=== PATIENT | male | born 1975 | race Caucasian/White ===

== ENCOUNTER 2016-09-11 14:38 | Emergency (ER) | payer SELFPAY ==
[~2016-09-11] VITALS: Ht 167.6 cm; Wt 82.0 kg
[~2016-09-11 14:38] MED LIST: DOCU-138 PO; FERR-63 PO; HYDR-3992 PO; PANT40TA4 PO
[2016-09-11] MEDS ORDERED: ONDANSETRON 4MG ODT PO STA (15:18)
[2016-09-11] MEDS ORDERED: PANTOPRAZOLE 40MG DR TABLET PO ONE (15:30)
[2016-09-11 16:21] LABS: BASOPHILS % 0.4 % (0.0-2.0); EOSINOPHILS % 0.3 % (0.0-5.0); HEMATOCRIT. 36.7 % (42.0-52.0); HEMOGLOBIN. 12.7 g/dL (14.0-18.0); LYMPHOCYTES % 32.2 % (20.0-50.0); MEAN CORPUSCULAR HEMOGLOBIN 31.4 pg (28.0-32.0); MEAN CORPUSCULAR VOLUME 90.7 fL (80.0-94.0); MEAN PLATELET VOLUME 8.5 fl (7.4-10.4); MONOCYTES % 9.6 % (2.0-8.0); NEUTROPHILS % 57.5 % (40.0-76.0); RED BLOOD CELL COUNT 4.05 mill/uL (4.7-6.1); RED CELL DISTRIBUTION WIDTH 15.5 % (11.6-14.6)
[2016-09-11 16:27] LABS: PLATELET 39 x1000/uL (130-400)
[2016-09-11 16:33] LABS: CARBON DIOXIDE 23 mEq/L (21-32); CHLORIDE 111 mEq/L (98-107)
[2016-09-11 16:44] LABS: ETHANOL BLOOD 345 mg/dL
[2016-09-11 17:28] LABS: CLARITY URINE CLEAR (CLEAR); COLOR URINE YELLOW (YELLOW); GLUCOSE URINE NEGATIVE (NEGATIVE); KETONES URINE NEGATIVE (NEGATIVE); LEUKOCYTE ESTERASE URINE NEGATIVE (NEGATIVE); NITRITE URINE NEGATIVE (NEGATIVE); OCCULT BLOOD URINE NEGATIVE (NEGATIVE); PROTEIN URINE NEGATIVE (NEGATIVE); SPECIFIC GRAVITY URINE 1.006 (1.005-1.030)
[2016-09-11 17:40] LABS: *AMPHETAMINES SCREEN URINE NEGATIVE (NEGATIVE); *BARBITURATES SCREEN URINE NEGATIVE (NEGATIVE); *BENZODIAZEPINES SCREEN URINE NEGATIVE (NEGATIVE); *COCAINE SCREEN URINE NEGATIVE (NEGATIVE); CANNABINOID URINE SCREEN NEGATIVE (NEGATIVE); METHADONE URINE SCREEN NEGATIVE (NEGATIVE); OPIATES URINE SCREEN NEGATIVE (NEGATIVE); PHENCYCLIDINE URINE SCREEN NEGATIVE (NEGATIVE)
[2016-09-11] MEDS ORDERED: ACETAMINOPHEN WITH CODEINE 300/30MG TABLET PO ONE (18:30)
[2016-09-11] MEDS ORDERED: ONDANSETRON 4MG ODT PO ONE (18:30)
[2016-09-11] MEDS ORDERED: POTASSIUM CHLORIDE 20MEQ TABLET SR PO ONE (18:45)
[2016-09-11 18:46] VITALS: BP 122/74
[2016-09-12 10:25] LABS: PLATELET ESTIMATE DECREASED
== END 2016-09-11 18:51 | disposition home or self-care (01) ==
LOC: ER 15:02
DX: D69.6 Thrombocytopenia, unspecified (principal); F10.229 Alcohol dependence with intoxication, unspecified; Y90.8 Blood alcohol level of 240 mg/100 ml or more; R03.0 Elevated blood-pressure reading, without diagnosis of hypertension; E87.6 Hypokalemia; Z88.8 Allergy status to other drugs, medicaments and biological substances; Z88.6 Allergy status to analgesic agent
CPT/HCPCS: 36415; 80053; 80305; 81003; 85025; 99284; G0482; Q0162

== ENCOUNTER 2016-09-13 18:33 | Emergency (ER) | payer SELFPAY ==
[~2016-09-13] VITALS: Ht 167.6 cm; Wt 65.0 kg
[2016-09-13] MEDS ORDERED: SODIUM CHLORIDE 0.9% 1,000 ML IV ONE (19:33)
[2016-09-13] MEDS ORDERED: ACTIVATED CHARCOAL 50 G/240 ML TUBE PO ONE (19:45)
[2016-09-13 20:05] LABS: BASOPHILS % 0.4 % (0.0-2.0); EOSINOPHILS % 0.4 % (0.0-5.0); HEMATOCRIT. 35.9 % (42.0-52.0); HEMOGLOBIN. 12.6 g/dL (14.0-18.0); LYMPHOCYTES % 32.2 % (20.0-50.0); MEAN CORPUSCULAR HEMOGLOBIN 31.6 pg (28.0-32.0); MEAN CORPUSCULAR VOLUME 89.9 fL (80.0-94.0); MEAN PLATELET VOLUME 8.7 fl (7.4-10.4); MONOCYTES % 7.8 % (2.0-8.0); NEUTROPHILS % 59.2 % (40.0-76.0); RED BLOOD CELL COUNT 3.99 mill/uL (4.7-6.1); RED CELL DISTRIBUTION WIDTH 15.8 % (11.6-14.6)
[2016-09-13 20:08] LABS: CHLORIDE 108 mEq/L (98-107)
[2016-09-13 20:14] LABS: CLARITY URINE CLEAR (CLEAR); COLOR URINE YELLOW (YELLOW); GLUCOSE URINE NEGATIVE (NEGATIVE); KETONES URINE NEGATIVE (NEGATIVE); LEUKOCYTE ESTERASE URINE NEGATIVE (NEGATIVE); NITRITE URINE NEGATIVE (NEGATIVE); OCCULT BLOOD URINE NEGATIVE (NEGATIVE); PH URINE 6.5 (4.5-8.0); PROTEIN URINE NEGATIVE (NEGATIVE); SPECIFIC GRAVITY URINE 1.006 (1.005-1.030)
[2016-09-13 20:16] LABS: PLATELET 35 x1000/uL (130-400)
[2016-09-13 20:17] LABS: CARBON DIOXIDE 25 mEq/L (21-32); ETHANOL BLOOD 254 mg/dL
[2016-09-13 20:25] LABS: *AMPHETAMINES SCREEN URINE NEGATIVE (NEGATIVE); *BARBITURATES SCREEN URINE NEGATIVE (NEGATIVE); *BENZODIAZEPINES SCREEN URINE NEGATIVE (NEGATIVE); *COCAINE SCREEN URINE NEGATIVE (NEGATIVE); CANNABINOID URINE SCREEN NEGATIVE (NEGATIVE); METHADONE URINE SCREEN NEGATIVE (NEGATIVE); OPIATES URINE SCREEN NEGATIVE (NEGATIVE); PHENCYCLIDINE URINE SCREEN NEGATIVE (NEGATIVE)
[2016-09-14] MEDS ORDERED: FOLIC ACID 1 MG, THIAMINE HCL 100 MG, MVI, ADULT NO.1 10 ML in DEXTROSE 5% WATER 1,000 ML IV ONE ×4 (19:45)
[2016-09-14] MEDS ORDERED: ONDANSETRON HCL 4MG/2ML VIAL IV ONE (19:45)
[2016-09-14] MEDS ORDERED: FAMOTIDINE 20MG/2ML VIAL IV ONE (19:45)
[2016-09-14] MEDS ORDERED: MORPHINE SULFATE 4 MG/ML CPJ (NOT FOR IM USE) IV ONE (19:45)
[2016-09-15] MEDS ORDERED: MAGNESIUM/ALUMINUM HYDROXIDE/SIMETHICONE 30ML UDC PO STA (09:19)
[2016-09-15] MEDS ORDERED: VISCOUS LIDOCAINE 2% 15 ML UDC PO STA (09:19)
[2016-09-15] MEDS ORDERED: DICYCLOMINE 10 MG/5 ML ORAL SYR PO STA (09:19)
[2016-09-15 12:02] VITALS: BP 119/68
== END 2016-09-15 12:03 | disposition home or self-care (01) ==
LOC: ER 18:35
DX: T43.212A Poisoning by selective serotonin and norepinephrine reuptake inhibitors, intentional self-harm, initial encounter (principal); T43.222A Poisoning by selective serotonin reuptake inhibitors, intentional self-harm, initial encounter; T47.1X2A Poisoning by other antacids and anti-gastric-secretion drugs, intentional self-harm, initial encounter; R45.851 Suicidal ideations; D69.6 Thrombocytopenia, unspecified; F10.129 Alcohol abuse with intoxication, unspecified; F10.20 Alcohol dependence, uncomplicated; Z88.6 Allergy status to analgesic agent; Z88.8 Allergy status to other drugs, medicaments and biological substances; Z79.899 Other long term (current) drug therapy; Y90.8 Blood alcohol level of 240 mg/100 ml or more; Y92.89 Other specified places as the place of occurrence of the external cause
CPT/HCPCS: 36415; 80053; 80305; 80307; 80329; 81003; 83690; 85025; 93005; 96365; 96366; 96375; 99285; G0482; J2270; J2405; J3411; J3490; J7030; J7070; Z7610

== ENCOUNTER 2016-10-19 14:22 | Emergency (ER) | payer MEDICAID ==
[~2016-10-19] VITALS: Ht 162.6 cm; Wt 73.0 kg
[~2016-10-19 14:22] MED LIST changes: +TRAZ-129 PO
[2016-10-19 17:34] LABS: CLARITY URINE CLEAR (CLEAR); COLOR URINE YELLOW (YELLOW); KETONES URINE NEGATIVE (NEGATIVE); LEUKOCYTE ESTERASE URINE NEGATIVE (NEGATIVE); NITRITE URINE NEGATIVE (NEGATIVE); OCCULT BLOOD URINE NEGATIVE (NEGATIVE); PH URINE 5.5 (4.5-8.0); PROTEIN URINE NEGATIVE (NEGATIVE); SPECIFIC GRAVITY URINE 1.008 (1.005-1.030); UROBILINOGEN URINE 0.2 E.U./dL (0.2-1.0)
[2016-10-19 17:46] LABS: BASOPHILS % 0.7 % (0.0-2.0); EOSINOPHILS % 0.9 % (0.0-5.0); HEMATOCRIT. 32.5 % (42.0-52.0); HEMOGLOBIN. 10.8 g/dL (14.0-18.0); LYMPHOCYTES % 22.9 % (20.0-50.0); MEAN CORPUSCULAR HEMOGLOBIN 29.4 pg (28.0-32.0); MEAN CORPUSCULAR VOLUME 88.3 fL (80.0-94.0); MEAN PLATELET VOLUME 9.1 fl (7.4-10.4); MONOCYTES % 6.4 % (2.0-8.0); NEUTROPHILS % 69.1 % (40.0-76.0); RED BLOOD CELL COUNT 3.68 mill/uL (4.7-6.1); RED CELL DISTRIBUTION WIDTH 18.3 % (11.6-14.6)
[2016-10-19 17:52] LABS: CHLORIDE 109 mEq/L (98-107)
[2016-10-19 17:53] LABS: INR 1.2; PROTHROMBIN TIME 12.6 sec
[2016-10-19 17:58] LABS: CARBON DIOXIDE 25 mEq/L (21-32)
[2016-10-19 17:59] LABS: PLATELET 27 x1000/uL (130-400)
[2016-10-19 18:08] LABS: PLATELET ESTIMATE MARKEDLY DECREASED
[2016-10-19] MEDS ORDERED: ONDANSETRON HCL 4MG/2ML VIAL IV STA (20:23)
[2016-10-19] MEDS ORDERED: MORPHINE SULFATE 4 MG/ML CPJ (NOT FOR IM USE) IV STA (20:23)
[2016-10-19] MEDS ORDERED: VISCOUS LIDOCAINE 2% 15 ML UDC PO STA (20:23)
[2016-10-19] MEDS ORDERED: DICYCLOMINE 10 MG/5 ML ORAL SYR PO STA (20:23)
[2016-10-19] MEDS ORDERED: MAGNESIUM/ALUMINUM HYDROXIDE/SIMETHICONE 30ML UDC PO STA (20:23)
[2016-10-19] MEDS ORDERED: SODIUM CHLORIDE 0.9% 1,000 ML IV ONE (20:23)
[2016-10-19 22:14] VITALS: BP 143/80
[2016-10-31] MEDS ORDERED: COLACE (04:38)
[2016-10-31] MEDS ORDERED: [UNRECOGNIZED DRUG - REMARK] (04:38)
[2016-10-31] MEDS ORDERED: OMEPRAZOLE (04:38)
== END 2016-10-19 22:16 | disposition home or self-care (01) ==
LOC: MERGE 16:21 → ER 16:21
DX: D61.818 Other pancytopenia (principal); K85.90 Acute pancreatitis without necrosis or infection, unspecified
CPT/HCPCS: 36415; 76705; 80053; 81003; 83690; 85025; 85610; 96361; 96374; 96375; 99285; J2270; J2405; J7030

== ENCOUNTER 2016-10-27 14:30 | Emergency (ER) | payer MEDICAID ==
[~2016-10-27] VITALS: Ht 172.7 cm; Wt 70.0 kg
[2016-10-27] MEDS ORDERED: SODIUM CHLORIDE 0.9% 1,000 ML IV ONE ×2 (14:49→15:38)
[2016-10-27 15:19] LABS: BASOPHILS % 0.7 % (0.0-2.0); EOSINOPHILS % 0.3 % (0.0-5.0); HEMATOCRIT. 33.4 % (42.0-52.0); HEMOGLOBIN. 11.3 g/dL (14.0-18.0); LYMPHOCYTES % 27.8 % (20.0-50.0); MEAN CORPUSCULAR HEMOGLOBIN 29.1 pg (28.0-32.0); MEAN PLATELET VOLUME 9.1 fl (7.4-10.4); MONOCYTES % 6.1 % (2.0-8.0); NEUTROPHILS % 65.1 % (40.0-76.0); RED BLOOD CELL COUNT 3.88 mill/uL (4.7-6.1); RED CELL DISTRIBUTION WIDTH 18.4 % (11.6-14.6)
[2016-10-27 15:20] LABS: CHLORIDE 109 mEq/L (98-107)
[2016-10-27 15:31] LABS: CARBON DIOXIDE 24 mEq/L (21-32); CREATINE KINASE 723 IU/L (39-308)
[2016-10-27 15:35] LABS: ETHANOL BLOOD 533 mg/dL
[2016-10-27 15:52] LABS: PLATELET 34 x1000/uL (130-400)
[2016-10-27 16:33] LABS: CLARITY URINE CLEAR (CLEAR); COLOR URINE DARK YELLOW (YELLOW); KETONES URINE NEGATIVE (NEGATIVE); LEUKOCYTE ESTERASE URINE NEGATIVE (NEGATIVE); NITRITE URINE NEGATIVE (NEGATIVE); OCCULT BLOOD URINE NEGATIVE (NEGATIVE); PH URINE 6.5 (4.5-8.0); PROTEIN URINE NEGATIVE (NEGATIVE); SPECIFIC GRAVITY URINE 1.011 (1.005-1.030)
[2016-10-27 16:44] LABS: *AMPHETAMINES SCREEN URINE NEGATIVE (NEGATIVE); *BARBITURATES SCREEN URINE NEGATIVE (NEGATIVE); *BENZODIAZEPINES SCREEN URINE NEGATIVE (NEGATIVE); *COCAINE SCREEN URINE NEGATIVE (NEGATIVE); CANNABINOID URINE SCREEN NEGATIVE (NEGATIVE); METHADONE URINE SCREEN NEGATIVE (NEGATIVE); OPIATES URINE SCREEN NEGATIVE (NEGATIVE); PHENCYCLIDINE URINE SCREEN NEGATIVE (NEGATIVE)
[2016-10-27 18:14] LABS: CREATINE KINASE 582 IU/L (39-308)
[2016-10-27 23:20] VITALS: BP 131/81
[2016-10-31] MEDS ORDERED: OMEPRAZOLE (04:38)
[2016-10-31] MEDS ORDERED: [UNRECOGNIZED DRUG - REMARK] (04:38)
[2016-10-31] MEDS ORDERED: COLACE (04:38)
== END 2016-10-28 00:52 | disposition home or self-care (01) ==
LOC: MERGE 14:50 → ER 14:50
DX: F10.129 Alcohol abuse with intoxication, unspecified (principal); M62.82 Rhabdomyolysis; D69.6 Thrombocytopenia, unspecified; R79.89 Other specified abnormal findings of blood chemistry; F41.9 Anxiety disorder, unspecified; F32.9 Major depressive disorder, single episode, unspecified; R56.9 Unspecified convulsions; R44.0 Auditory hallucinations; F12.10 Cannabis abuse, uncomplicated; Z88.3 Allergy status to other anti-infective agents
CPT/HCPCS: 36415; 71010; 80053; 80305; 81003; 82550; 82962; 83605; 83690; 85025; 93005; 96360; 96361; 99285; G0482; J7030; Z7610

== ENCOUNTER 2016-12-19 13:39 | Emergency (ER) | payer MEDICAID ==
[~2016-12-19] VITALS: Ht 167.6 cm; Wt 64.0 kg
[2016-12-19 13:45] VITALS: BP 104/68
== END 2016-12-19 16:44 | disposition left against medical advice (07) ==
LOC: ER 13:59
DX: R10.9 Unspecified abdominal pain (principal); Z53.21 Procedure and treatment not carried out due to patient leaving prior to being seen by health care provider

== ENCOUNTER 2016-12-20 18:18 | Inpatient (IN) | payer MEDICAID, OTHER ==
[~2016-12-20] VITALS: Ht 162.6 cm; Wt 65.8 kg
[2016-12-21] MEDS ORDERED: ONDANSETRON HCL 4MG/2ML VIAL IV ONE (00:30)
[2016-12-21] MEDS ORDERED: MORPHINE SULFATE 4 MG/ML CPJ (NOT FOR IM USE) IV ONE (00:30)
[2016-12-21] MEDS ORDERED: SODIUM CHLORIDE 0.9% 1,000 ML IV ONE (00:30)
[2016-12-21 00:58] LABS: HEMATOCRIT. 31.9 % (42.0-52.0); HEMOGLOBIN. 10.6 g/dL (14.0-18.0); MEAN CORPUSCULAR HEMOGLOBIN 28.9 pg (28.0-32.0); MEAN CORPUSCULAR VOLUME 86.9 fL (80.0-94.0); MEAN PLATELET VOLUME 8.2 fl (7.4-10.4); RED BLOOD CELL COUNT 3.67 mill/uL (4.7-6.1); RED CELL DISTRIBUTION WIDTH 24.4 % (11.6-14.6)
[2016-12-21 01:04] LABS: PLATELET 15 x1000/uL (130-400)
[2016-12-21 01:06] LABS: CHLORIDE 111 mEq/L (98-107)
[2016-12-21 01:15] LABS: CARBON DIOXIDE 26 mEq/L (21-32)
[2016-12-21 01:34] LABS: ETHANOL BLOOD 320 mg/dL
[2016-12-21 02:37] LABS: CLARITY URINE CLEAR (CLEAR); COLOR URINE DARK YELLOW (YELLOW); GLUCOSE URINE NEGATIVE (NEGATIVE); KETONES URINE NEGATIVE (NEGATIVE); LEUKOCYTE ESTERASE URINE NEGATIVE (NEGATIVE); NITRITE URINE NEGATIVE (NEGATIVE); OCCULT BLOOD URINE NEGATIVE (NEGATIVE); PH URINE 5.5 (4.5-8.0); PROTEIN URINE NEGATIVE (NEGATIVE); SPECIFIC GRAVITY URINE 1.026 (1.005-1.030)
[2016-12-21] MEDS ORDERED: MORPHINE SULFATE 2 MG/ML CPJ (NOT FOR IM USE) IV NR (02:45)
[2016-12-21 05:00] VITALS: BP_SYST 146; BP_DIAS 84; BP_DIAS 85
[2016-12-21] MEDS ORDERED: ZOLPIDEM TARTRATE 5MG TABLET PO PRN (07:00)
[2016-12-21 08:00] VITALS: BP_SYST 115; BP_SYST 126; BP_DIAS 63; BP_DIAS 67
[2016-12-21] MEDS: THIAMINE HCL 100MG TABLET PO SCH (09:13)
[2016-12-21] MEDS: MORPHINE SULFATE 2 MG/ML CPJ (NOT FOR IM USE) IV PRN ×2 (09:15→18:30)
[2016-12-21 10:42] LABS: PLATELET ESTIMATE MARKEDLY DECREASED
[2016-12-21 10:59] LABS: *AMPHETAMINES SCREEN URINE NEGATIVE (NEGATIVE); *BARBITURATES SCREEN URINE NEGATIVE (NEGATIVE); *BENZODIAZEPINES SCREEN URINE NEGATIVE (NEGATIVE); *COCAINE SCREEN URINE NEGATIVE (NEGATIVE); CANNABINOID URINE SCREEN NEGATIVE (NEGATIVE); METHADONE URINE SCREEN NEGATIVE (NEGATIVE); OPIATES URINE SCREEN PRESUMTIVE POSITIVE (NEGATIVE); PHENCYCLIDINE URINE SCREEN NEGATIVE (NEGATIVE)
[2016-12-21 12:00] VITALS: BP 100/55
[2016-12-21] MEDS: ONDANSETRON HCL 4MG/2ML VIAL IV PRN ×2 (14:42→18:30)
[2016-12-21 16:00] VITALS: BP 113/70
[2016-12-21] MEDS ORDERED: POTASSIUM CHLORIDE 20MEQ TABLET SR PO NR (19:30)
[2016-12-21 19:44] LABS: HEMATOCRIT. 33.9 % (42.0-52.0); HEMOGLOBIN. 11.1 g/dL (14.0-18.0); MEAN CORPUSCULAR HEMOGLOBIN 28.4 pg (28.0-32.0); MEAN CORPUSCULAR VOLUME 86.7 fL (80.0-94.0); MEAN PLATELET VOLUME 8.7 fl (7.4-10.4); RED BLOOD CELL COUNT 3.91 mill/uL (4.7-6.1); RED CELL DISTRIBUTION WIDTH 24.2 % (11.6-14.6)
[2016-12-21 19:51] LABS: INR 1.2; PROTHROMBIN TIME 12.4 sec (9.4-11.6)
[2016-12-21 20:00] VITALS: BP 136/73
[2016-12-21 20:02] LABS: CHLORIDE 104 mEq/L (98-107)
[2016-12-21 20:13] LABS: CARBON DIOXIDE 26 mEq/L (21-32); PLATELET 15 x1000/uL (130-400)
[2016-12-21] MEDS: SODIUM CHLORIDE 0.9% 1,000 ML IV SCH (21:21)
[2016-12-21 22:53] LABS: PLATELET ESTIMATE MARKEDLY DECREASED
[2016-12-22] VITALS (12 sets, daily range): BP systolic 106–133; BP diastolic 55–78
[2016-12-22] MEDS: MORPHINE SULFATE 2 MG/ML CPJ (NOT FOR IM USE) IV PRN ×4 (04:32→19:41)
[2016-12-22] MEDS: ONDANSETRON HCL 4MG/2ML VIAL IV PRN ×3 (04:36→19:41)
[2016-12-22] MEDS: THIAMINE HCL 100MG TABLET PO SCH (08:40)
[2016-12-22] MEDS: SODIUM CHLORIDE 0.9% 1,000 ML IV SCH (08:41)
[2016-12-22 10:36] LABS: HEMATOCRIT. 32.6 % (42.0-52.0); HEMOGLOBIN. 10.8 g/dL (14.0-18.0); MEAN CORPUSCULAR HEMOGLOBIN 28.5 pg (28.0-32.0); MEAN CORPUSCULAR VOLUME 86.1 fL (80.0-94.0); MEAN PLATELET VOLUME 10.8 fl (7.4-10.4); RED BLOOD CELL COUNT 3.79 mill/uL (4.7-6.1); RED CELL DISTRIBUTION WIDTH 23.6 % (11.6-14.6)
[2016-12-22 10:46] LABS: CARBON DIOXIDE 25 mEq/L (21-32); CHLORIDE 107 mEq/L (98-107)
[2016-12-22 13:57] LABS: PLATELET ESTIMATE MARKEDLY DECREASED
[2016-12-22 13:58] LABS: PLATELET 19 x1000/uL (130-400)
[2016-12-22 15:33] LABS: HEMATOCRIT. 32.4 % (42.0-52.0); HEMOGLOBIN. 10.7 g/dL (14.0-18.0); MEAN CORPUSCULAR HEMOGLOBIN 28.7 pg (28.0-32.0); MEAN CORPUSCULAR VOLUME 86.5 fL (80.0-94.0); MEAN PLATELET VOLUME 8.7 fl (7.4-10.4); PLATELET 18 x1000/uL (130-400); RED BLOOD CELL COUNT 3.75 mill/uL (4.7-6.1); RED CELL DISTRIBUTION WIDTH 23.5 % (11.6-14.6)
[2016-12-22] MEDS ORDERED: ACETAMINOPHEN 325MG TABLET PO SCH (16:15)
[2016-12-22 16:48] LABS: PLATELET ESTIMATE MARKEDLY DECREASED
[2016-12-22] MEDS ORDERED: CEFTRIAXONE 1 G PREMIX 50 ML IV SCH (22:00)
[2016-12-23] VITALS (8 sets, daily range): BP systolic 101–117; BP diastolic 51–74
[2016-12-23] MEDS: MORPHINE SULFATE 2 MG/ML CPJ (NOT FOR IM USE) IV PRN ×4 (01:34→20:29)
[2016-12-23] MEDS: THIAMINE HCL 100MG TABLET PO SCH (08:23)
[2016-12-23] MEDS: SODIUM CHLORIDE 0.9% 1,000 ML IV SCH ×2 (10:49→21:29)
[2016-12-23] MEDS: ONDANSETRON HCL 4MG/2ML VIAL IV PRN ×2 (10:54→20:28)
[2016-12-23] MEDS ORDERED: CEFTRIAXONE 1 G PREMIX 50 ML IV SCH (22:00)
[2016-12-24 00:13] VITALS: BP 110/61
[2016-12-24 00:14] VITALS: BP 110/61
[2016-12-24 00:55] VITALS: BP 101/55
[2016-12-24] MEDS: MORPHINE SULFATE 2 MG/ML CPJ (NOT FOR IM USE) IV PRN ×2 (03:30→08:43)
[2016-12-24 04:00] VITALS: BP 109/62
[2016-12-24] MEDS: ONDANSETRON HCL 4MG/2ML VIAL IV PRN (05:15)
[2016-12-24 07:43] VITALS: BP 111/63
[2016-12-24 07:49] LABS: BASOPHILS % 0.7 % (0.0-2.0); EOSINOPHILS % 0.6 % (0.0-5.0); HEMATOCRIT. 30.9 % (42.0-52.0); HEMOGLOBIN. 10.2 g/dL (14.0-18.0); LYMPHOCYTES % 16.7 % (20.0-50.0); MEAN CORPUSCULAR HEMOGLOBIN 28.6 pg (28.0-32.0); MEAN CORPUSCULAR VOLUME 86.7 fL (80.0-94.0); MONOCYTES % 6.7 % (2.0-8.0); NEUTROPHILS % 75.3 % (40.0-76.0); RED BLOOD CELL COUNT 3.56 mill/uL (4.7-6.1)
[2016-12-24] MEDS: THIAMINE HCL 100MG TABLET PO SCH (08:05)
[2016-12-24 09:33] LABS: PLATELET 37 x1000/uL (130-400)
[2016-12-24 10:19] VITALS: BP 111/63
== END 2016-12-24 10:50 | disposition home or self-care (01) | DRG 241 ==
LOC: ER 12-21 03:30 → 8WST 12-21 03:37 → ENRESERV 12-21 03:41 → 8WST 12-21 05:05
PROVIDERS: ADMIT Family Medicine; ATTEND Family Medicine
PROC: 30233R1 Transfusion of Nonautologous Platelets into Peripheral Vein, Percutaneous Approach (ICD-10-PCS; principal; 2016-12-22)
DX: K29.70 Gastritis, unspecified, without bleeding (principal); D61.818 Other pancytopenia; E46 Unspecified protein-calorie malnutrition; E87.0 Hyperosmolality and hypernatremia; K70.30 Alcoholic cirrhosis of liver without ascites; E87.6 Hypokalemia; Y90.9 Presence of alcohol in blood, level not specified; F10.229 Alcohol dependence with intoxication, unspecified; E86.0 Dehydration; Z88.9 Allergy status to unspecified drugs, medicaments and biological substances; Z87.891 Personal history of nicotine dependence; Z88.6 Allergy status to analgesic agent; Z88.8 Allergy status to other drugs, medicaments and biological substances; Z79.899 Other long term (current) drug therapy; Z68.24 Body mass index [BMI] 24.0-24.9, adult
CPT/HCPCS: 36415; 80053; 80305; 81003; 83690; 85025; 85049; 85610; 86850; 86900; 86945; 87040; 87086; 96361; 96374; 96375; 99285; G0482; J0696; J2270; J2405; J7030; J7040; J7050; P9034

== ENCOUNTER 2016-12-30 11:11 | Inpatient (IN) | payer MEDICAID, OTHER ==
[~2016-12-30] VITALS: Ht 170.2 cm; Wt 69.9 kg
[2016-12-30] MEDS ORDERED: SODIUM CHLORIDE 0.9% 1,000 ML IV ONE (15:15)
[2016-12-30 15:36] LABS: HEMATOCRIT. 32.3 % (42.0-52.0); HEMOGLOBIN. 11.1 g/dL (14.0-18.0); MEAN CORPUSCULAR VOLUME 87.2 fL (80.0-94.0); MEAN PLATELET VOLUME 9.6 fl (7.4-10.4); RED BLOOD CELL COUNT 3.71 mill/uL (4.7-6.1)
[2016-12-30 15:38] LABS: CHLORIDE 113 mEq/L (98-107)
[2016-12-30 15:41] LABS: INR 1.2; PROTHROMBIN TIME 12.3 sec (9.4-11.6)
[2016-12-30 15:43] LABS: CARBON DIOXIDE 23 mEq/L (21-32); PLATELET 30 x1000/uL (130-400)
[2016-12-30 15:48] LABS: CLARITY URINE CLEAR (CLEAR); COLOR URINE YELLOW (YELLOW); GLUCOSE URINE NEGATIVE (NEGATIVE); KETONES URINE NEGATIVE (NEGATIVE); LEUKOCYTE ESTERASE URINE NEGATIVE (NEGATIVE); NITRITE URINE NEGATIVE (NEGATIVE); OCCULT BLOOD URINE NEGATIVE (NEGATIVE); PH URINE 5.5 (4.5-8.0); PROTEIN URINE NEGATIVE (NEGATIVE); UROBILINOGEN URINE 0.2 E.U./dL (0.2-1.0)
[2016-12-30 15:59] LABS: *AMPHETAMINES SCREEN URINE NEGATIVE (NEGATIVE); *BARBITURATES SCREEN URINE NEGATIVE (NEGATIVE); *BENZODIAZEPINES SCREEN URINE NEGATIVE (NEGATIVE); *COCAINE SCREEN URINE NEGATIVE (NEGATIVE); CANNABINOID URINE SCREEN NEGATIVE (NEGATIVE); METHADONE URINE SCREEN NEGATIVE (NEGATIVE); OPIATES URINE SCREEN NEGATIVE (NEGATIVE); PHENCYCLIDINE URINE SCREEN NEGATIVE (NEGATIVE)
[2016-12-30 16:00] LABS: ETHANOL BLOOD 416 mg/dL
[2016-12-30] MEDS ORDERED: PANTOPRAZOLE SODIUM 40 MG/VIAL IV ONE (17:15)
[2016-12-30 17:22] LABS: ATYPICAL LYMPHOCYTES 3; PLATELET ESTIMATE MARKEDLY DECREASED
[2016-12-30] MEDS ORDERED: HYDROCODONE/ACETAMINOPHEN 5/325MG TABLET PO PRN (20:00)
[2016-12-30 20:46] LABS: HEPATITIS B SURFACE ANTIGEN NEGATIVE
[2016-12-30 21:14] LABS: HEPATITIS B CORE AB IGM NEGATIVE
[2016-12-30 21:16] LABS: HEPATITIS A AB IGM NEGATIVE (NEGATIVE)
[2016-12-30] MEDS: POTASSIUM CHLORIDE 20MEQ TABLET SR PO SCH (22:43)
[2016-12-30] MEDS: ONDANSETRON HCL 4MG/2ML VIAL IV PRN (22:45)
[2016-12-30] MEDS: MORPHINE SULFATE 4 MG/ML CPJ (NOT FOR IM USE) IV PRN (22:45)
[2016-12-31] MEDS: MORPHINE SULFATE 4 MG/ML CPJ (NOT FOR IM USE) IV PRN ×4 (03:45→22:18)
[2016-12-31 08:50] VITALS: BP 111/61
[2016-12-31 09:00] VITALS: BP 111/61
[2016-12-31] MEDS ORDERED: FAMOTIDINE 20MG/2ML VIAL IV SCH (09:00)
[2016-12-31] MEDS ORDERED: FUROSEMIDE 40MG/4ML VIAL IV SCH (09:00)
[2016-12-31] MEDS: POTASSIUM CHLORIDE 20MEQ TABLET SR PO SCH (09:24)
[2016-12-31] MEDS: PANTOPRAZOLE 40MG DR TABLET PO SCH (09:25)
[2016-12-31 12:00] VITALS: BP 127/73
[2016-12-31] MEDS: SODIUM CHLORIDE 0.9% 1,000 ML IV SCH ×3 (12:17→22:18)
[2016-12-31] MEDS: ONDANSETRON HCL 4MG/2ML VIAL IV PRN ×2 (12:22→22:17)
[2016-12-31] MEDS ORDERED: FILGRASTIM-TBO 480 MCG/0.8 ML SYRINGE SQ SCH (13:00)
[2016-12-31 16:00] VITALS: BP 119/66
[2016-12-31 20:00] VITALS: BP 132/77
[2017-01-01] VITALS: BP 130/76
[2017-01-01] MEDS: SODIUM CHLORIDE 0.9% 1,000 ML IV SCH ×7 (02:00→18:27)
[2017-01-01 04:00] VITALS: BP 146/81
[2017-01-01] MEDS: MORPHINE SULFATE 4 MG/ML CPJ (NOT FOR IM USE) IV PRN ×2 (06:44→12:40)
[2017-01-01] MEDS: ONDANSETRON HCL 4MG/2ML VIAL IV PRN (06:44)
[2017-01-01] MEDS: PANTOPRAZOLE 40MG DR TABLET PO SCH (06:49)
[2017-01-01 07:13] LABS: BASOPHILS % 0.3 % (0.0-2.0); EOSINOPHILS % 0.1 % (0.0-5.0); HEMOGLOBIN. 10.3 g/dL (14.0-18.0); LYMPHOCYTES % 8.7 % (20.0-50.0); MEAN CORPUSCULAR HEMOGLOBIN 29.1 pg (28.0-32.0); MEAN CORPUSCULAR VOLUME 87.5 fL (80.0-94.0); MEAN PLATELET VOLUME 10.2 fl (7.4-10.4); MONOCYTES % 8.4 % (2.0-8.0); NEUTROPHILS % 82.5 % (40.0-76.0); RED BLOOD CELL COUNT 3.54 mill/uL (4.7-6.1)
[2017-01-01 07:34] LABS: CARBON DIOXIDE 26 mEq/L (21-32); CHLORIDE 102 mEq/L (98-107); PHOSPHORUS 2.7 mg/dL (2.5-4.9)
[2017-01-01 08:00] VITALS: BP 122/67
[2017-01-01] MEDS: POTASSIUM CHLORIDE 20MEQ TABLET SR PO SCH (09:00)
[2017-01-01 09:08] LABS: PLATELET 19 x1000/uL (130-400)
[2017-01-01 11:29] LABS: PLATELET ESTIMATE MARKEDLY DECREASED
[2017-01-01 12:00] VITALS: BP 124/62
[2017-01-01] MEDS ORDERED: FILGRASTIM-TBO 480 MCG/0.8 ML SYRINGE SQ SCH (12:00)
[2017-01-01] MEDS ORDERED: MAGNESIUM 2 G PREMIX 50 ML IV NR (12:00)
[2017-01-01] MEDS ORDERED: POTASSIUM CHLORIDE INJ 40 MEQ in DEXT 5% WATER 500 ML IV NR (12:00)
[2017-01-01 16:00] VITALS: BP 175/92
[2017-01-01 20:55] VITALS: BP 129/69
== END 2017-01-01 21:35 | disposition home or self-care (01) | DRG 775 ==
LOC: ER 11:26 → 6EST 17:36 → SUPCPDRO 19:55 → ENRESERV 12-31 07:50
PROVIDERS: ADMIT Internal Medicine Nephrology; ATTEND Internal Medicine Nephrology
DX: F10.229 Alcohol dependence with intoxication, unspecified (principal); D61.818 Other pancytopenia; K85.20 Alcohol induced acute pancreatitis without necrosis or infection; K70.30 Alcoholic cirrhosis of liver without ascites; E44.1 Mild protein-calorie malnutrition; K86.0 Alcohol-induced chronic pancreatitis; K70.10 Alcoholic hepatitis without ascites; Y90.8 Blood alcohol level of 240 mg/100 ml or more; E87.6 Hypokalemia; D64.9 Anemia, unspecified; Z88.6 Allergy status to analgesic agent; Z88.8 Allergy status to other drugs, medicaments and biological substances; Z79.899 Other long term (current) drug therapy; Z68.24 Body mass index [BMI] 24.0-24.9, adult
CPT/HCPCS: 36415; 80048; 80053; 80076; 80305; 81003; 82105; 83690; 83735; 84100; 85025; 85610; 86705; 86709; 86803; 87040; 87340; 96361; 96374; 96375; 99285; C9113; G0482; J1442; J1940; J2270; J2405; J3475; J3480; J3490; J7030; J7060

== ENCOUNTER 2017-01-09 12:27 | Emergency (ER) | payer MEDICAID, OTHER ==
[~2017-01-09] VITALS: Ht 162.6 cm; Wt 70.0 kg
[2017-01-09 18:24] LABS: HEMATOCRIT. 34.2 % (42.0-52.0); HEMOGLOBIN. 11.4 g/dL (14.0-18.0); MEAN CORPUSCULAR HEMOGLOBIN 28.6 pg (28.0-32.0); MEAN CORPUSCULAR VOLUME 85.9 fL (80.0-94.0); MEAN PLATELET VOLUME 8.6 fl (7.4-10.4); RED BLOOD CELL COUNT 3.99 mill/uL (4.7-6.1); RED CELL DISTRIBUTION WIDTH 21.9 % (11.6-14.6)
[2017-01-09 18:26] LABS: CHLORIDE 109 mEq/L (98-107); INR 1.2; PROTHROMBIN TIME 12.6 sec (9.4-11.6)
[2017-01-09 18:26] LABS: CLARITY URINE CLEAR (CLEAR); COLOR URINE YELLOW (YELLOW); GLUCOSE URINE NEGATIVE (NEGATIVE); KETONES URINE NEGATIVE (NEGATIVE); LEUKOCYTE ESTERASE URINE NEGATIVE (NEGATIVE); NITRITE URINE NEGATIVE (NEGATIVE); OCCULT BLOOD URINE NEGATIVE (NEGATIVE); PH URINE 5.5 (4.5-8.0); PROTEIN URINE NEGATIVE (NEGATIVE); UROBILINOGEN URINE 0.2 E.U./dL (0.2-1.0)
[2017-01-09 18:31] LABS: CARBON DIOXIDE 23 mEq/L (21-32)
[2017-01-09 18:32] LABS: PLATELET 23 x1000/uL (130-400)
[2017-01-09 20:24] LABS: PLATELET ESTIMATE MARKEDLY DECREASED
[2017-01-10] VITALS: BP 121/62
[2017-01-10] MEDS ORDERED: SODIUM CHLORIDE 0.9% 500 ML IV ONE (00:15)
[2017-01-10] MEDS ORDERED: MORPHINE SULFATE 2 MG/ML CPJ (NOT FOR IM USE) IV ONE (00:15)
== END 2017-01-10 00:15 | disposition home or self-care (01) ==
LOC: ER 14:39 → CANBEDREQ 01-10 02:52
DX: R79.1 Abnormal coagulation profile (principal); E86.0 Dehydration; E83.51 Hypocalcemia; D72.819 Decreased white blood cell count, unspecified; D69.6 Thrombocytopenia, unspecified; K76.6 Portal hypertension; K74.60 Unspecified cirrhosis of liver; R74.0 Nonspecific elevation of levels of transaminase and lactic acid dehydrogenase [LDH]; R16.1 Splenomegaly, not elsewhere classified; F41.9 Anxiety disorder, unspecified; F32.9 Major depressive disorder, single episode, unspecified; F10.20 Alcohol dependence, uncomplicated; Z87.891 Personal history of nicotine dependence; Z88.6 Allergy status to analgesic agent; Z87.11 Personal history of peptic ulcer disease; Z88.8 Allergy status to other drugs, medicaments and biological substances
CPT/HCPCS: 36415; 74176; 80053; 81003; 83690; 85025; 85610; 93005; 99285; J7040

== ENCOUNTER 2017-02-17 18:57 | Emergency (ER) | payer MEDICAID ==
[~2017-02-17] VITALS: Ht 157.5 cm; Wt 68.0 kg
[2017-02-17] MEDS ORDERED: TETANUS, DIPHTHERIA, PERTUSSIS VAC/PF 0.5ML (>7YR OLD) IM ONE (19:15)
[2017-02-17] MEDS ORDERED: BACITRACIN ZINC OINT UDPKT TOP ONE (19:15)
[2017-02-17] MEDS ORDERED: LORAZEPAM 2MG/ML CPJ IV STA (21:15)
[2017-02-17] MEDS ORDERED: SODIUM CHLORIDE 0.9% 1,000 ML IV ONE (21:15)
[2017-02-17] MEDS ORDERED: ONDANSETRON HCL 4MG/2ML VIAL IV STA (21:15)
[2017-02-17] MEDS ORDERED: CYANOCOBALAMIN 1000MCG/ML VIAL IM ONE (21:30)
[2017-02-18] MEDS ORDERED: SODIUM CHLORIDE 0.9% 1,000 ML IV ONE (01:01)
[2017-02-18 06:49] VITALS: BP 102/65
== END 2017-02-18 07:06 | disposition home or self-care (01) ==
LOC: ER 19:24
DX: S01.111A Laceration without foreign body of right eyelid and periocular area, initial encounter (principal); S00.81XA Abrasion of other part of head, initial encounter; S00.31XA Abrasion of nose, initial encounter; F10.229 Alcohol dependence with intoxication, unspecified; K76.9 Liver disease, unspecified; F15.10 Other stimulant abuse, uncomplicated; Y90.9 Presence of alcohol in blood, level not specified; R26.9 Unspecified abnormalities of gait and mobility; Z88.6 Allergy status to analgesic agent; Y04.0XXA Assault by unarmed brawl or fight, initial encounter; Y93.89 Activity, other specified; Y92.488 Other paved roadways as the place of occurrence of the external cause
CPT/HCPCS: 12011; 70450; 70486; 72125; 90471; 90715; 96361; 96372; 96374; 96375; 99284; J2060; J2405; J3420; J7030; X7700; Z7610

== ENCOUNTER 2017-03-10 13:49 | Emergency (ER) | payer MEDICAID ==
[~2017-03-10] VITALS: Ht 162.6 cm; Wt 60.0 kg
[2017-03-10] MEDS ORDERED: MAGNESIUM/ALUMINUM HYDROXIDE/SIMETHICONE 30ML UDC PO STA (14:20)
[2017-03-10] MEDS ORDERED: DICYCLOMINE 10 MG/5 ML ORAL SYR PO STA (14:20)
[2017-03-10] MEDS ORDERED: ONDANSETRON HCL 4MG/2ML VIAL IV STA (14:20)
[2017-03-10] MEDS ORDERED: VISCOUS LIDOCAINE 2% 15 ML UDC PO STA (14:20)
[2017-03-10 15:04] LABS: HEMATOCRIT. 33.9 % (42.0-52.0); HEMOGLOBIN. 11.2 g/dL (14.0-18.0); MEAN CORPUSCULAR HEMOGLOBIN 29.3 pg (28.0-32.0); MEAN CORPUSCULAR VOLUME 88.4 fL (80.0-94.0); MEAN PLATELET VOLUME 8.6 fl (7.4-10.4); RED BLOOD CELL COUNT 3.84 mill/uL (4.7-6.1); RED CELL DISTRIBUTION WIDTH 17.8 % (11.6-14.6)
[2017-03-10 15:06] LABS: CHLORIDE 110 mEq/L (98-107)
[2017-03-10 15:07] LABS: INR 1.1
[2017-03-10 15:08] LABS: PLATELET 19 x1000/uL (130-400)
[2017-03-10 15:12] LABS: CARBON DIOXIDE 24 mEq/L (21-32)
[2017-03-10 15:27] LABS: PLATELET ESTIMATE MARKEDLY DECREASED
[2017-03-10 16:07] VITALS: BP 104/69
== END 2017-03-10 16:17 | disposition home or self-care (01) ==
LOC: ER 13:55
DX: K29.20 Alcoholic gastritis without bleeding (principal); R04.0 Epistaxis; F10.10 Alcohol abuse, uncomplicated; Z88.6 Allergy status to analgesic agent; Z88.8 Allergy status to other drugs, medicaments and biological substances; Z87.11 Personal history of peptic ulcer disease
CPT/HCPCS: 36415; 80053; 83690; 85025; 85610; 96374; 99284; J2405

== ENCOUNTER 2017-06-26 10:12 | Emergency (ER) | payer MEDICAID, OTHER ==
[~2017-06-26] VITALS: Ht 162.6 cm; Wt 69.6 kg
[~2017-06-26 10:12] MED LIST changes: -HYDR-3992 PO; +METO-293 PO; -TRAZ-129 PO
[2017-06-26] MEDS ORDERED: ONDANSETRON HCL 4MG/2ML VIAL IV STA (15:45)
[2017-06-26] MEDS ORDERED: FAMOTIDINE 20MG/2ML VIAL IV STA (15:45)
[2017-06-26] MEDS ORDERED: SODIUM CHLORIDE 0.9% 1,000 ML IV ONE (15:45)
[2017-06-26] MEDS ORDERED: MORPHINE SULFATE 4 MG/ML CPJ (NOT FOR IM USE) IV STA (15:45)
[2017-06-26 16:11] LABS: BASOPHILS % 0.6 % (0.0-2.0); EOSINOPHILS % 0.7 % (0.0-5.0); HEMATOCRIT. 37.8 % (42.0-52.0); HEMOGLOBIN. 12.3 g/dL (14.0-18.0); LYMPHOCYTES % 33.3 % (20.0-50.0); MEAN CORPUSCULAR HEMOGLOBIN 28.6 pg (28.0-32.0); MEAN CORPUSCULAR VOLUME 87.7 fL (80.0-94.0); MEAN PLATELET VOLUME 9.3 fl (7.4-10.4); MONOCYTES % 7.1 % (2.0-8.0); NEUTROPHILS % 58.3 % (40.0-76.0); RED BLOOD CELL COUNT 4.31 mill/uL (4.7-6.1); RED CELL DISTRIBUTION WIDTH 21.4 % (11.6-14.6)
[2017-06-26 16:13] LABS: INR 1.2; PROTHROMBIN TIME 12.3 sec (9.4-11.6)
[2017-06-26 16:15] LABS: CHLORIDE 110 mEq/L (98-107)
[2017-06-26 16:20] LABS: PLATELET 35 x1000/uL (130-400)
[2017-06-26 16:21] LABS: TROPONIN I < 0.02 ng/mL (0.00-0.04)
[2017-06-26 16:25] LABS: ETHANOL BLOOD 302 mg/dL
[2017-06-26 16:55] LABS: CLARITY URINE CLEAR (CLEAR); COLOR URINE YELLOW (YELLOW); KETONES URINE NEGATIVE (NEGATIVE); LEUKOCYTE ESTERASE URINE NEGATIVE (NEGATIVE); NITRITE URINE NEGATIVE (NEGATIVE); OCCULT BLOOD URINE NEGATIVE (NEGATIVE); PH URINE 5.5 (4.5-8.0); PROTEIN URINE NEGATIVE (NEGATIVE); SPECIFIC GRAVITY URINE 1.015 (1.005-1.030)
[2017-06-26 17:07] LABS: *AMPHETAMINES SCREEN URINE NEGATIVE (NEGATIVE); *BARBITURATES SCREEN URINE NEGATIVE (NEGATIVE); *BENZODIAZEPINES SCREEN URINE PRESUMTIVE POSITIVE (NEGATIVE); *COCAINE SCREEN URINE NEGATIVE (NEGATIVE); CANNABINOID URINE SCREEN NEGATIVE (NEGATIVE); METHADONE URINE SCREEN NEGATIVE (NEGATIVE); OPIATES URINE SCREEN NEGATIVE (NEGATIVE); PHENCYCLIDINE URINE SCREEN NEGATIVE (NEGATIVE)
[2017-06-26] MEDS ORDERED: MORPHINE SULFATE 10 MG/ML CPJ IM ONE (19:00)
[2017-06-26] MEDS ORDERED: KETOROLAC 30MG/ML VIAL IV ONE (19:00)
[2017-06-26 22:52] VITALS: BP 128/70
== END 2017-06-26 23:41 | disposition home or self-care (01) ==
LOC: ER 13:36
DX: K29.20 Alcoholic gastritis without bleeding (principal); D69.6 Thrombocytopenia, unspecified; Z88.6 Allergy status to analgesic agent; D64.9 Anemia, unspecified; Z87.11 Personal history of peptic ulcer disease
CPT/HCPCS: 36415; 71045; 74018; 80053; 80305; 81003; 83605; 83690; 83880; 84484; 85025; 85610; 93005; 96372; 96374; 96375; 99285; G0482; J1885; J2270; J2405; J3490; J7030; Z7610

== ENCOUNTER 2017-07-10 19:12 | Emergency (ER) | payer MEDICAID ==
[~2017-07-10] VITALS: Ht 162.6 cm; Wt 70.0 kg
[2017-07-10 20:14] VITALS: BP 110/65
== END 2017-07-11 01:40 | disposition left against medical advice (07) ==
LOC: ER 21:38
DX: R10.9 Unspecified abdominal pain (principal); Z53.21 Procedure and treatment not carried out due to patient leaving prior to being seen by health care provider

== ENCOUNTER 2017-07-12 14:43 | Emergency (ER) | payer MEDICAID ==
[~2017-07-12] VITALS: Ht 167.6 cm; Wt 76.0 kg
[2017-07-12] MEDS ORDERED: MORPHINE SULFATE 4 MG/ML CPJ (NOT FOR IM USE) IV STA (14:56)
[2017-07-12] MEDS ORDERED: ONDANSETRON HCL 4MG/2ML VIAL IV STA (14:56)
[2017-07-12 15:20] LABS: BASOPHILS % 1.7 % (0.0-2.0); EOSINOPHILS % 0.8 % (0.0-5.0); HEMATOCRIT. 37.6 % (42.0-52.0); HEMOGLOBIN. 12.9 g/dL (14.0-18.0); LYMPHOCYTES % 55.1 % (20.0-50.0); MEAN CORPUSCULAR VOLUME 87.5 fL (80.0-94.0); MEAN PLATELET VOLUME 8.6 fl (7.4-10.4); MONOCYTES % 5.2 % (2.0-8.0); NEUTROPHILS % 37.2 % (40.0-76.0); RED BLOOD CELL COUNT 4.29 mill/uL (4.7-6.1); RED CELL DISTRIBUTION WIDTH 20.3 % (11.6-14.6)
[2017-07-12 15:21] LABS: CHLORIDE 114 mEq/L (98-107)
[2017-07-12 15:23] LABS: INR 1.2; PROTHROMBIN TIME 12.6 sec (9.4-11.6)
[2017-07-12 15:28] LABS: PLATELET 45 x1000/uL (130-400)
[2017-07-12 19:21] LABS: CLARITY URINE CLEAR (CLEAR); COLOR URINE YELLOW (YELLOW); KETONES URINE NEGATIVE (NEGATIVE); LEUKOCYTE ESTERASE URINE NEGATIVE (NEGATIVE); NITRITE URINE NEGATIVE (NEGATIVE); OCCULT BLOOD URINE NEGATIVE (NEGATIVE); PROTEIN URINE NEGATIVE (NEGATIVE); SPECIFIC GRAVITY URINE 1.009 (1.005-1.030); UROBILINOGEN URINE 0.2 E.U./dL (0.2-1.0)
[2017-07-12] MEDS ORDERED: IOHEXOL-300 100 ML BOTTLE ONE (21:15)
[2017-07-12 21:16] VITALS: BP 114/71
== END 2017-07-12 21:18 | disposition home or self-care (01) ==
LOC: ER 14:49
DX: F10.129 Alcohol abuse with intoxication, unspecified (principal); R10.84 Generalized abdominal pain; F14.10 Cocaine abuse, uncomplicated; F12.10 Cannabis abuse, uncomplicated; Z88.6 Allergy status to analgesic agent; Y90.8 Blood alcohol level of 240 mg/100 ml or more
CPT/HCPCS: 36415; 74177; 80053; 81003; 83690; 85025; 85610; 96374; 96375; 99285; G0482; J2270; J2405; Q9967; Z7610

== ENCOUNTER 2017-07-14 13:02 | Emergency (ER) | payer MEDICAID ==
[~2017-07-14] VITALS: Ht 162.6 cm; Wt 70.0 kg
[2017-07-14] MEDS ORDERED: ONDANSETRON HCL 4MG/2ML VIAL IV STA (14:00)
[2017-07-14] MEDS ORDERED: FAMOTIDINE 20MG/2ML VIAL IV STA (14:00)
[2017-07-14] MEDS ORDERED: SODIUM CHLORIDE 0.9% 1,000 ML IV ONE (14:00)
[2017-07-14] MEDS ORDERED: MORPHINE SULFATE 4 MG/ML CPJ (NOT FOR IM USE) IV STA (14:00)
[2017-07-14] MEDS ORDERED: MAGNESIUM/ALUMINUM HYDROXIDE/SIMETHICONE 30ML UDC PO STA (14:00)
[2017-07-14 14:33] LABS: BASOPHILS % 0.7 % (0.0-2.0); EOSINOPHILS % 0.1 % (0.0-5.0); HEMATOCRIT. 35.8 % (42.0-52.0); HEMOGLOBIN. 12.3 g/dL (14.0-18.0); LYMPHOCYTES % 28.5 % (20.0-50.0); MEAN CORPUSCULAR HEMOGLOBIN 30.1 pg (28.0-32.0); MEAN CORPUSCULAR VOLUME 87.6 fL (80.0-94.0); MEAN PLATELET VOLUME 8.4 fl (7.4-10.4); MONOCYTES % 5.7 % (2.0-8.0); RED BLOOD CELL COUNT 4.09 mill/uL (4.7-6.1); RED CELL DISTRIBUTION WIDTH 19.4 % (11.6-14.6)
[2017-07-14 14:34] LABS: PLATELET 39 x1000/uL (130-400)
[2017-07-14 14:35] LABS: CHLORIDE 108 mEq/L (98-107)
[2017-07-14 14:41] LABS: ETHANOL BLOOD 287 mg/dL; INR 1.2; PROTHROMBIN TIME 12.7 sec (9.4-11.6)
[2017-07-14 15:11] LABS: CLARITY URINE CLEAR (CLEAR); COLOR URINE DARK YELLOW (YELLOW); KETONES URINE TRACE (NEGATIVE); LEUKOCYTE ESTERASE URINE NEGATIVE (NEGATIVE); NITRITE URINE NEGATIVE (NEGATIVE); OCCULT BLOOD URINE TRACE (NEGATIVE); PH URINE 6.5 (4.5-8.0); PROTEIN URINE NEGATIVE (NEGATIVE); SPECIFIC GRAVITY URINE 1.015 (1.005-1.030)
[2017-07-14 15:25] LABS: *AMPHETAMINES SCREEN URINE NEGATIVE (NEGATIVE); *BARBITURATES SCREEN URINE NEGATIVE (NEGATIVE); *BENZODIAZEPINES SCREEN URINE PRESUMTIVE POSITIVE (NEGATIVE); OPIATES URINE SCREEN NEGATIVE (NEGATIVE)
[2017-07-14 15:26] LABS: *COCAINE SCREEN URINE NEGATIVE (NEGATIVE); CANNABINOID URINE SCREEN NEGATIVE (NEGATIVE); METHADONE URINE SCREEN NEGATIVE (NEGATIVE); PHENCYCLIDINE URINE SCREEN NEGATIVE (NEGATIVE)
[2017-07-14 18:09] VITALS: BP 141/70
== END 2017-07-14 19:19 | disposition home or self-care (01) ==
LOC: ER 13:27
DX: T51.0X1A Toxic effect of ethanol, accidental (unintentional), initial encounter (principal); K29.00 Acute gastritis without bleeding; D69.6 Thrombocytopenia, unspecified; Z88.6 Allergy status to analgesic agent; Z88.8 Allergy status to other drugs, medicaments and biological substances; Z87.11 Personal history of peptic ulcer disease; Y92.018 Other place in single-family (private) house as the place of occurrence of the external cause
CPT/HCPCS: 36415; 80053; 80305; 81003; 83690; 85025; 85610; 93005; 96361; 96374; 96375; 99285; G0482; J2270; J2405; J3490; J7030

== ENCOUNTER 2017-07-23 12:32 | Emergency (ER) | payer MEDICAID ==
[~2017-07-23] VITALS: Ht 170.2 cm; Wt 70.0 kg
[2017-07-23] MEDS ORDERED: ONDANSETRON 4MG ODT PO STA (14:23)
[2017-07-23 14:42] LABS: CHLORIDE 112 mEq/L (98-107)
[2017-07-23 14:47] LABS: INR 1.2; PROTHROMBIN TIME 12.3 sec (9.4-11.6)
[2017-07-23 14:57] LABS: ETHANOL BLOOD 425 mg/dL
[2017-07-23 14:58] LABS: HEMATOCRIT. 34.2 % (42.0-52.0); HEMOGLOBIN. 11.8 g/dL (14.0-18.0); MEAN CORPUSCULAR HEMOGLOBIN 30.6 pg (28.0-32.0); MEAN CORPUSCULAR VOLUME 88.7 fL (80.0-94.0); MEAN PLATELET VOLUME 8.9 fl (7.4-10.4); RED BLOOD CELL COUNT 3.86 mill/uL (4.7-6.1); RED CELL DISTRIBUTION WIDTH 20.2 % (11.6-14.6)
[2017-07-23 15:02] LABS: PLATELET 30 x1000/uL (130-400)
[2017-07-23 16:01] LABS: ATYPICAL LYMPHOCYTES 2
[2017-07-23 16:02] LABS: PLATELET ESTIMATE MARKEDLY DECREASED
[2017-07-23 17:28] VITALS: BP 103/66
== END 2017-07-23 18:08 | disposition home or self-care (01) ==
LOC: ER 15:29
DX: T51.0X1A Toxic effect of ethanol, accidental (unintentional), initial encounter (principal); F10.129 Alcohol abuse with intoxication, unspecified; D69.6 Thrombocytopenia, unspecified; D72.819 Decreased white blood cell count, unspecified; Z88.6 Allergy status to analgesic agent; Z88.8 Allergy status to other drugs, medicaments and biological substances
CPT/HCPCS: 36415; 80053; 85025; 85610; 99284; G0482; Q0162

== ENCOUNTER 2017-07-27 20:19 | Emergency (ER) | payer MEDICAID ==
[~2017-07-27] VITALS: Ht 167.6 cm; Wt 70.0 kg
[2017-07-28] MEDS ORDERED: ONDANSETRON 4MG ODT PO STA (02:27)
[2017-07-28 02:41] LABS: BASOPHILS % 1.3 % (0.0-2.0); EOSINOPHILS % 0.7 % (0.0-5.0); HEMATOCRIT. 38.6 % (42.0-52.0); HEMOGLOBIN. 12.9 g/dL (14.0-18.0); LYMPHOCYTES % 46.7 % (20.0-50.0); MEAN CORPUSCULAR HEMOGLOBIN 29.6 pg (28.0-32.0); MEAN CORPUSCULAR VOLUME 88.2 fL (80.0-94.0); MEAN PLATELET VOLUME 8.4 fl (7.4-10.4); NEUTROPHILS % 41.3 % (40.0-76.0); RED BLOOD CELL COUNT 4.37 mill/uL (4.7-6.1); RED CELL DISTRIBUTION WIDTH 19.1 % (11.6-14.6)
[2017-07-28 02:44] LABS: PLATELET 40 x1000/uL (130-400)
[2017-07-28 02:48] LABS: CHLORIDE 107 mEq/L (98-107); INR 1.2; PROTHROMBIN TIME 12.4 sec (9.4-11.6)
[2017-07-28 03:11] LABS: ETHANOL BLOOD 320 mg/dL
[2017-07-28 03:14] LABS: CLARITY URINE CLEAR (CLEAR); COLOR URINE DARK YELLOW (YELLOW); KETONES URINE TRACE (NEGATIVE); LEUKOCYTE ESTERASE URINE NEGATIVE (NEGATIVE); NITRITE URINE NEGATIVE (NEGATIVE); OCCULT BLOOD URINE NEGATIVE (NEGATIVE); PH URINE 5.5 (4.5-8.0); PROTEIN URINE NEGATIVE (NEGATIVE); SPECIFIC GRAVITY URINE 1.021 (1.005-1.030)
[2017-07-28] MEDS ORDERED: FAMOTIDINE 20MG TABLET PO ONE (03:30)
[2017-07-28 06:15] VITALS: BP 103/71
== END 2017-07-28 06:30 | disposition home or self-care (01) ==
LOC: ER 20:45
DX: F10.10 Alcohol abuse, uncomplicated (principal); K29.20 Alcoholic gastritis without bleeding; D61.818 Other pancytopenia; I83.90 Asymptomatic varicose veins of unspecified lower extremity; K74.60 Unspecified cirrhosis of liver; Z88.6 Allergy status to analgesic agent
CPT/HCPCS: 36415; 71045; 74176; 80053; 81003; 83690; 85025; 85610; 93005; 99285; G0482; Q0162; Z7610

== ENCOUNTER 2017-07-31 19:23 | Emergency (ER) | payer MEDICAID ==
[~2017-07-31] VITALS: Ht 162.6 cm; Wt 70.0 kg
[2017-08-01] MEDS ORDERED: ONDANSETRON HCL 4MG/2ML VIAL IV STA (04:01)
[2017-08-01] MEDS ORDERED: KETOROLAC 30MG/ML VIAL IV STA (04:01)
[2017-08-01] MEDS ORDERED: SODIUM CHLORIDE 0.9% 1,000 ML IV ONE (04:01)
[2017-08-01 04:17] LABS: HEMATOCRIT. 34.5 % (42.0-52.0); HEMOGLOBIN. 11.8 g/dL (14.0-18.0); MEAN CORPUSCULAR HEMOGLOBIN 30.3 pg (28.0-32.0); MEAN CORPUSCULAR VOLUME 88.8 fL (80.0-94.0); MEAN PLATELET VOLUME 8.6 fl (7.4-10.4); RED BLOOD CELL COUNT 3.88 mill/uL (4.7-6.1); RED CELL DISTRIBUTION WIDTH 18.6 % (11.6-14.6)
[2017-08-01 04:24] LABS: CHLORIDE 105 mEq/L (98-107); PLATELET 20 x1000/uL (130-400)
[2017-08-01 04:25] LABS: INR 1.3; PROTHROMBIN TIME 13.1 sec (9.4-11.6)
[2017-08-01 04:28] LABS: ETHANOL BLOOD 115 mg/dL
[2017-08-01 05:04] LABS: CLARITY URINE CLEAR (CLEAR); COLOR URINE ORANGE (YELLOW); KETONES URINE 1+ (NEGATIVE); LEUKOCYTE ESTERASE URINE 1+ (NEGATIVE); NITRITE URINE POSITIVE (NEGATIVE); OCCULT BLOOD URINE NEGATIVE (NEGATIVE); PROTEIN URINE 1+ (NEGATIVE); SPECIFIC GRAVITY URINE 1.031 (1.005-1.030)
[2017-08-01 05:14] LABS: *AMPHETAMINES SCREEN URINE NEGATIVE (NEGATIVE); *BARBITURATES SCREEN URINE NEGATIVE (NEGATIVE)
[2017-08-01 05:15] LABS: *BENZODIAZEPINES SCREEN URINE PRESUMTIVE POSITIVE (NEGATIVE); *COCAINE SCREEN URINE NEGATIVE (NEGATIVE); CANNABINOID URINE SCREEN NEGATIVE (NEGATIVE); METHADONE URINE SCREEN NEGATIVE (NEGATIVE); OPIATES URINE SCREEN PRESUMTIVE POSITIVE (NEGATIVE); PHENCYCLIDINE URINE SCREEN NEGATIVE (NEGATIVE)
[2017-08-01] MEDS ORDERED: VISCOUS LIDOCAINE 2% 15 ML UDC PO ONE (06:30)
[2017-08-01] MEDS ORDERED: FAMOTIDINE 20MG TABLET PO ONE (06:30)
[2017-08-01] MEDS ORDERED: MAGNESIUM/ALUMINUM HYDROXIDE/SIMETHICONE 30ML UDC PO ONE (06:30)
[2017-08-01 07:17] LABS: PLATELET ESTIMATE MARKEDLY DECREASED
[2017-08-01 07:23] VITALS: BP 119/70
== END 2017-08-01 07:25 | disposition home or self-care (01) ==
LOC: ER 20:17
DX: N39.0 Urinary tract infection, site not specified (principal); F10.229 Alcohol dependence with intoxication, unspecified; F19.10 Other psychoactive substance abuse, uncomplicated; Z88.6 Allergy status to analgesic agent; Z88.8 Allergy status to other drugs, medicaments and biological substances
CPT/HCPCS: 36415; 80053; 80305; 81003; 83690; 85025; 85610; 96361; 96374; 96375; 99285; G0482; J1885; J2405; J7030; Z7610

== ENCOUNTER 2017-08-07 19:53 | Emergency (ER) | payer MEDICAID ==
[~2017-08-07] VITALS: Ht 162.6 cm; Wt 70.0 kg
[2017-08-07 21:41] LABS: HEMATOCRIT. 35.3 % (42.0-52.0); HEMOGLOBIN. 11.9 g/dL (14.0-18.0); MEAN CORPUSCULAR HEMOGLOBIN 30.3 pg (28.0-32.0); MEAN CORPUSCULAR VOLUME 90.1 fL (80.0-94.0); MEAN PLATELET VOLUME 8.3 fl (7.4-10.4); RED BLOOD CELL COUNT 3.92 mill/uL (4.7-6.1); RED CELL DISTRIBUTION WIDTH 20.3 % (11.6-14.6)
[2017-08-07 21:47] LABS: CHLORIDE 105 mEq/L (98-107)
[2017-08-07 21:48] LABS: INR 1.2; PLATELET 18 x1000/uL (130-400); PROTHROMBIN TIME 12.5 sec (9.4-11.6)
[2017-08-07 21:51] LABS: ETHANOL BLOOD 212 mg/dL
[2017-08-07 23:00] LABS: PLATELET ESTIMATE MARKEDLY DECREASED
[2017-08-07 23:10] LABS: CLARITY URINE CLEAR (CLEAR); COLOR URINE DARK YELLOW (YELLOW); KETONES URINE TRACE (NEGATIVE); LEUKOCYTE ESTERASE URINE TRACE (NEGATIVE); NITRITE URINE NEGATIVE (NEGATIVE); OCCULT BLOOD URINE NEGATIVE (NEGATIVE); PH URINE 6.5 (4.5-8.0); PROTEIN URINE TRACE (NEGATIVE); SPECIFIC GRAVITY URINE 1.023 (1.005-1.030)
[2017-08-07 23:22] LABS: *AMPHETAMINES SCREEN URINE NEGATIVE (NEGATIVE); *BARBITURATES SCREEN URINE NEGATIVE (NEGATIVE); *BENZODIAZEPINES SCREEN URINE NEGATIVE (NEGATIVE); *COCAINE SCREEN URINE NEGATIVE (NEGATIVE)
[2017-08-07 23:23] LABS: METHADONE URINE SCREEN NEGATIVE (NEGATIVE); OPIATES URINE SCREEN PRESUMTIVE POSITIVE (NEGATIVE)
[2017-08-07 23:24] LABS: CANNABINOID URINE SCREEN NEGATIVE (NEGATIVE); PHENCYCLIDINE URINE SCREEN NEGATIVE (NEGATIVE)
[2017-08-08] MEDS ORDERED: SODIUM CHLORIDE 0.9% 1,000 ML IV ONE (04:15)
[2017-08-08] MEDS ORDERED: LORAZEPAM 2MG/ML CPJ IV ONE (05:00)
[2017-08-08] MEDS ORDERED: FAMOTIDINE 20MG/2ML VIAL IV SCH (05:15)
[2017-08-08] MEDS ORDERED: ONDANSETRON HCL 4MG/2ML VIAL IV SCH (05:15)
[2017-08-08 12:10] VITALS: BP 135/71
== END 2017-08-08 12:11 | disposition home or self-care (01) ==
LOC: ER 19:53
DX: K76.9 Liver disease, unspecified (principal); F10.239 Alcohol dependence with withdrawal, unspecified; K29.20 Alcoholic gastritis without bleeding; Z88.6 Allergy status to analgesic agent; Z79.899 Other long term (current) drug therapy
CPT/HCPCS: 36415; 80053; 80305; 81003; 83690; 85025; 85610; 96361; 96374; 96375; 99285; G0482; J2060; J2405; J3490; J7030; Z7610

== ENCOUNTER 2017-08-26 17:33 | Emergency (ER) | payer MEDICAID ==
[~2017-08-26] VITALS: Ht 162.6 cm; Wt 70.0 kg
[2017-08-27] MEDS ORDERED: FAMOTIDINE 20MG/2ML VIAL IV STA (01:00)
[2017-08-27] MEDS ORDERED: MAGNESIUM/ALUMINUM HYDROXIDE/SIMETHICONE 30ML UDC PO STA (01:00)
[2017-08-27] MEDS ORDERED: SODIUM CHLORIDE 0.9% 1,000 ML IV ONE (01:00)
[2017-08-27 01:20] LABS: BASOPHILS % 0.9 % (0.0-2.0); EOSINOPHILS % 0.3 % (0.0-5.0); HEMATOCRIT. 35.8 % (42.0-52.0); LYMPHOCYTES % 41.5 % (20.0-50.0); MEAN CORPUSCULAR HEMOGLOBIN 30.6 pg (28.0-32.0); MEAN CORPUSCULAR VOLUME 90.8 fL (80.0-94.0); MONOCYTES % 9.4 % (2.0-8.0); NEUTROPHILS % 47.9 % (40.0-76.0); RED BLOOD CELL COUNT 3.94 mill/uL (4.7-6.1); RED CELL DISTRIBUTION WIDTH 19.9 % (11.6-14.6)
[2017-08-27 01:23] LABS: PLATELET 18 x1000/uL (130-400)
[2017-08-27 01:26] LABS: CHLORIDE 109 mEq/L (98-107)
[2017-08-27 01:32] LABS: INR 1.3; PROTHROMBIN TIME 13.1 sec (9.4-11.6)
[2017-08-27 01:51] LABS: CLARITY URINE CLEAR (CLEAR); COLOR URINE DARK YELLOW (YELLOW); KETONES URINE TRACE (NEGATIVE); LEUKOCYTE ESTERASE URINE NEGATIVE (NEGATIVE); NITRITE URINE NEGATIVE (NEGATIVE); OCCULT BLOOD URINE TRACE (NEGATIVE); PROTEIN URINE 1+ (NEGATIVE); SPECIFIC GRAVITY URINE 1.018 (1.005-1.030)
[2017-08-27 02:11] LABS: *BARBITURATES SCREEN URINE NEGATIVE (NEGATIVE); *BENZODIAZEPINES SCREEN URINE NEGATIVE (NEGATIVE); *COCAINE SCREEN URINE NEGATIVE (NEGATIVE)
[2017-08-27 02:12] LABS: *AMPHETAMINES SCREEN URINE NEGATIVE (NEGATIVE); CANNABINOID URINE SCREEN NEGATIVE (NEGATIVE); METHADONE URINE SCREEN NEGATIVE (NEGATIVE); OPIATES URINE SCREEN NEGATIVE (NEGATIVE); PHENCYCLIDINE URINE SCREEN NEGATIVE (NEGATIVE)
[2017-08-27 02:16] LABS: ETHANOL BLOOD 386 mg/dL
[2017-08-27 10:35] VITALS: BP 123/64
== END 2017-08-27 10:37 | disposition home or self-care (01) ==
LOC: ER 17:40
DX: K70.30 Alcoholic cirrhosis of liver without ascites (principal); R10.12 Left upper quadrant pain; F10.20 Alcohol dependence, uncomplicated; K21.9 Gastro-esophageal reflux disease without esophagitis; D72.819 Decreased white blood cell count, unspecified; D69.6 Thrombocytopenia, unspecified; Y90.8 Blood alcohol level of 240 mg/100 ml or more; Z88.6 Allergy status to analgesic agent
CPT/HCPCS: 36415; 73562; 80053; 80305; 80307; 80329; 81003; 83690; 84443; 85025; 85610; 96374; 99285; G0482; J3490; J7030; Z7610

== ENCOUNTER 2017-09-18 20:59 | Emergency (ER) | payer MEDICAID ==
[~2017-09-18] VITALS: Ht 162.6 cm; Wt 70.0 kg
[2017-09-19] MEDS ORDERED: ONDANSETRON HCL 4MG/2ML VIAL IV STA (03:31)
[2017-09-19 03:48] LABS: HEMATOCRIT. 34.9 % (42.0-52.0); HEMOGLOBIN. 11.8 g/dL (14.0-18.0); MEAN CORPUSCULAR HEMOGLOBIN 30.5 pg (28.0-32.0); MEAN CORPUSCULAR VOLUME 90.1 fL (80.0-94.0); MEAN PLATELET VOLUME 8.3 fl (7.4-10.4); RED BLOOD CELL COUNT 3.87 mill/uL (4.7-6.1); RED CELL DISTRIBUTION WIDTH 18.7 % (11.6-14.6)
[2017-09-19 03:50] LABS: CHLORIDE 113 mEq/L (98-107)
[2017-09-19 03:52] LABS: INR 1.2; PROTHROMBIN TIME 12.8 sec (9.4-11.6)
[2017-09-19 04:00] LABS: PLATELET 22 x1000/uL (130-400)
[2017-09-19 04:10] LABS: CLARITY URINE CLEAR (CLEAR); COLOR URINE YELLOW (YELLOW); KETONES URINE NEGATIVE (NEGATIVE); LEUKOCYTE ESTERASE URINE NEGATIVE (NEGATIVE); NITRITE URINE NEGATIVE (NEGATIVE); OCCULT BLOOD URINE NEGATIVE (NEGATIVE); PROTEIN URINE NEGATIVE (NEGATIVE)
[2017-09-19 04:18] LABS: ETHANOL BLOOD 294 mg/dL
[2017-09-19 04:41] LABS: PLATELET ESTIMATE MARKEDLY DECREASED
[2017-09-19] MEDS ORDERED: ONDANSETRON HCL 4MG/2ML VIAL IV ONE (05:15)
[2017-09-19] MEDS ORDERED: MORPHINE SULFATE 4 MG/ML CPJ (NOT FOR IM USE) IV ONE (05:15)
[2017-09-19 08:36] VITALS: BP 116/68
== END 2017-09-19 08:40 | disposition home or self-care (01) ==
LOC: ER 21:03
DX: D61.818 Other pancytopenia (principal); K85.90 Acute pancreatitis without necrosis or infection, unspecified; K70.10 Alcoholic hepatitis without ascites; F10.229 Alcohol dependence with intoxication, unspecified; K21.9 Gastro-esophageal reflux disease without esophagitis; Z88.6 Allergy status to analgesic agent; Y90.8 Blood alcohol level of 240 mg/100 ml or more
CPT/HCPCS: 36415; 80053; 81003; 83690; 85025; 85610; 96374; 96375; 96376; 99284; G0482; J2270; J2405

== ENCOUNTER 2017-09-30 17:27 | Emergency (ER) | payer SELFPAY ==
[~2017-09-30] VITALS: Ht 165.1 cm; Wt 65.0 kg
[2017-09-30] MEDS ORDERED: SODIUM CHLORIDE 0.9% 1,000 ML IV ONE (18:10)
[2017-09-30] MEDS ORDERED: ONDANSETRON HCL 4MG/2ML VIAL IV STA (18:10)
[2017-09-30] MEDS ORDERED: FAMOTIDINE 20MG/2ML VIAL IV STA (18:10)
[2017-09-30] MEDS ORDERED: MIDAZOLAM HCL 2 MG/2 ML VIAL IV ONE (18:15)
[2017-09-30 18:36] LABS: BASOPHILS % 0.9 % (0.0-2.0); EOSINOPHILS % 0.6 % (0.0-5.0); HEMATOCRIT. 33.5 % (42.0-52.0); HEMOGLOBIN. 11.3 g/dL (14.0-18.0); LYMPHOCYTES % 30.2 % (20.0-50.0); MEAN CORPUSCULAR VOLUME 91.9 fL (80.0-94.0); MEAN PLATELET VOLUME 8.5 fl (7.4-10.4); MONOCYTES % 9.4 % (2.0-8.0); NEUTROPHILS % 58.9 % (40.0-76.0); RED BLOOD CELL COUNT 3.65 mill/uL (4.7-6.1); RED CELL DISTRIBUTION WIDTH 18.8 % (11.6-14.6)
[2017-09-30 18:43] LABS: CHLORIDE 108 mEq/L (98-107)
[2017-09-30 18:44] LABS: PLATELET 26 x1000/uL (130-400)
[2017-09-30 18:45] LABS: INR 1.2; PROTHROMBIN TIME 12.9 sec (9.4-11.6)
[2017-09-30 19:08] LABS: ETHANOL BLOOD 387 mg/dL
[2017-09-30 19:17] LABS: PLATELET ESTIMATE MARKEDLY DECREASED
[2017-09-30 20:26] LABS: CLARITY URINE CLEAR (CLEAR); COLOR URINE YELLOW (YELLOW); KETONES URINE NEGATIVE (NEGATIVE); LEUKOCYTE ESTERASE URINE NEGATIVE (NEGATIVE); NITRITE URINE NEGATIVE (NEGATIVE); OCCULT BLOOD URINE NEGATIVE (NEGATIVE); PH URINE 6.5 (4.5-8.0); PROTEIN URINE NEGATIVE (NEGATIVE); SPECIFIC GRAVITY URINE 1.006 (1.005-1.030); UROBILINOGEN URINE 0.2 E.U./dL (0.2-1.0)
[2017-09-30 20:38] LABS: *AMPHETAMINES SCREEN URINE NEGATIVE (NEGATIVE); *BARBITURATES SCREEN URINE NEGATIVE (NEGATIVE); *BENZODIAZEPINES SCREEN URINE NEGATIVE (NEGATIVE)
[2017-09-30 20:39] LABS: *COCAINE SCREEN URINE NEGATIVE (NEGATIVE); CANNABINOID URINE SCREEN NEGATIVE (NEGATIVE); OPIATES URINE SCREEN NEGATIVE (NEGATIVE); PHENCYCLIDINE URINE SCREEN NEGATIVE (NEGATIVE)
[2017-09-30 20:43] LABS: METHADONE URINE SCREEN NEGATIVE (NEGATIVE)
[2017-10-01 01:00] VITALS: BP 129/78
== END 2017-10-01 01:15 | disposition home or self-care (01) ==
LOC: ER 17:27
DX: T51.0X1A Toxic effect of ethanol, accidental (unintentional), initial encounter (principal); R10.13 Epigastric pain; F10.129 Alcohol abuse with intoxication, unspecified; D61.818 Other pancytopenia; D69.6 Thrombocytopenia, unspecified; R03.0 Elevated blood-pressure reading, without diagnosis of hypertension; F15.10 Other stimulant abuse, uncomplicated; Z88.6 Allergy status to analgesic agent; Z91.09 Other allergy status, other than to drugs and biological substances; Z79.899 Other long term (current) drug therapy; Y92.89 Other specified places as the place of occurrence of the external cause; Y90.8 Blood alcohol level of 240 mg/100 ml or more
CPT/HCPCS: 36415; 76705; 80053; 80305; 81003; 83690; 85025; 85610; 85730; 96361; 96374; 96375; 99285; G0482; J2250; J2405; J3490; J7030; Z7610

== ENCOUNTER 2017-10-18 07:23 | Inpatient (IN) | payer SELFPAY ==
[~2017-10-18] VITALS: Ht 162.6 cm; Wt 68.3 kg
[2017-10-18] MEDS ORDERED: ONDANSETRON HCL 4MG/2ML VIAL IV STA (07:56)
[2017-10-18] MEDS ORDERED: PANTOPRAZOLE 80 MG in SODIUM CHLORIDE 0.9% 100 ML IV STA (07:56)
[2017-10-18] MEDS ORDERED: SODIUM CHLORIDE 0.9% 1,000 ML IV ONE (07:56)
[2017-10-18] MEDS ORDERED: PANTOPRAZOLE SODIUM 40 MG/VIAL IV STA (07:56)
[2017-10-18] MEDS ORDERED: MORPHINE SULFATE 4 MG/ML CPJ (NOT FOR IM USE) IV STA (07:56)
[2017-10-18 08:17] LABS: HEMATOCRIT. 35.8 % (42.0-52.0); MEAN CORPUSCULAR HEMOGLOBIN 30.7 pg (28.0-32.0); MEAN CORPUSCULAR VOLUME 91.8 fL (80.0-94.0); RED CELL DISTRIBUTION WIDTH 17.6 % (11.6-14.6)
[2017-10-18 08:22] LABS: CHLORIDE 108 mEq/L (98-107)
[2017-10-18 08:27] LABS: INR 1.3; PARTIAL THROMBOPLASTIN TIME 31.4 sec (23.4-31.0); PLATELET 19 x1000/uL (130-400); PROTHROMBIN TIME 13.1 sec (9.4-11.6)
[2017-10-18 08:42] LABS: CLARITY URINE CLEAR (CLEAR); COLOR URINE YELLOW (YELLOW); KETONES URINE NEGATIVE (NEGATIVE); LEUKOCYTE ESTERASE URINE NEGATIVE (NEGATIVE); NITRITE URINE NEGATIVE (NEGATIVE); OCCULT BLOOD URINE NEGATIVE (NEGATIVE); PROTEIN URINE NEGATIVE (NEGATIVE)
[2017-10-18] MEDS ORDERED: PANTOPRAZOLE 80 MG in SODIUM CHLORIDE 0.9% 100 ML IV SCH ×2 (08:45→21:00)
[2017-10-18 08:55] LABS: ATYPICAL LYMPHOCYTES 1; PLATELET ESTIMATE MARKEDLY DECREASED
[2017-10-18 11:10] VITALS: BP 139/72
[2017-10-18] MEDS ORDERED: DIPHENHYDRAMINE 50MG/ML VIAL IV PRN (11:45)
[2017-10-18] MEDS ORDERED: CLONIDINE 0.1MG TABLET PO PRN (11:45)
[2017-10-18] MEDS ORDERED: ACETAMINOPHEN 650MG SUPP PR PRN (11:45)
[2017-10-18 12:00] VITALS: BP 139/72
[2017-10-18] MEDS ORDERED: KETOROLAC 15MG/ML VIAL IV PRN (12:00)
[2017-10-18] MEDS ORDERED: MVI, ADULT NO.1 10 ML, FOLIC ACID 1 MG, THIAMINE HCL 100 MG in SODIUM CHLORIDE 0.9% 1,0... IV SCH ×4 (13:00)
[2017-10-18] MEDS ORDERED: KCL 20MEQ/100ML PREMIX 100 ML IV SCH (13:00)
[2017-10-18] MEDS: ONDANSETRON HCL 4MG/2ML VIAL IV PRN ×2 (14:08→23:29)
[2017-10-18] MEDS: SODIUM CHLORIDE 0.9% 1,000 ML IV SCH (14:08)
[2017-10-18 16:00] VITALS: BP 112/66
[2017-10-18 20:00] VITALS: BP 134/75
[2017-10-18] MEDS ORDERED: OCTREOTIDE ACETATE 50 MCG/ML 1ML IV NR (21:00)
[2017-10-18] MEDS ORDERED: PANTOPRAZOLE IV SCH (21:00)
[2017-10-18] MEDS ORDERED: SODIUM CHLORIDE 0.9% IV SCH (21:00)
[2017-10-18] MEDS: OCTREOTIDE 1,000 MCG in SODIUM CHLORIDE 0.9% 98 ML IV SCH (23:03)
[2017-10-18] MEDS: PANTOPRAZOLE 80 MG in SODIUM CHLORIDE 0.9% 100 ML IV SCH (23:03)
[2017-10-19] VITALS: BP 131/74
[2017-10-19 04:00] VITALS: BP 127/63
[2017-10-19 06:16] LABS: CHLORIDE 103 mEq/L (98-107)
[2017-10-19 06:18] LABS: HEMATOCRIT. 34.2 % (42.0-52.0); HEMOGLOBIN. 11.4 g/dL (14.0-18.0); MEAN CORPUSCULAR HEMOGLOBIN 30.9 pg (28.0-32.0); MEAN CORPUSCULAR VOLUME 92.6 fL (80.0-94.0); MEAN PLATELET VOLUME 8.7 fl (7.4-10.4); RED CELL DISTRIBUTION WIDTH 17.2 % (11.6-14.6)
[2017-10-19 06:28] LABS: PHOSPHORUS 3.4 mg/dL (2.5-4.9)
[2017-10-19 06:31] LABS: PLATELET 16 x1000/uL (130-400)
[2017-10-19 06:35] LABS: INR 1.3; PARTIAL THROMBOPLASTIN TIME 32.9 sec (23.4-31.0); PROTHROMBIN TIME 13.4 sec (9.4-11.6)
[2017-10-19 08:00] VITALS: BP 122/65
[2017-10-19] MEDS ORDERED: PANTOPRAZOLE SODIUM 40 MG/VIAL IV SCH (09:00)
[2017-10-19] MEDS: PANTOPRAZOLE 80 MG in SODIUM CHLORIDE 0.9% 100 ML IV SCH ×2 (09:06→21:14)
[2017-10-19] MEDS: KETOROLAC 15MG/ML VIAL IV PRN (09:06)
[2017-10-19 10:11] LABS: PLATELET ESTIMATE MARKEDLY DECREASED
[2017-10-19 12:00] VITALS: BP 119/67
[2017-10-19] MEDS: CHLORDIAZEPOXIDE 25MG CAPSULE PO SCH ×2 (14:31→21:14)
[2017-10-19] MEDS: OCTREOTIDE 1,000 MCG in SODIUM CHLORIDE 0.9% 98 ML IV SCH (14:31)
[2017-10-19 16:00] VITALS: BP 119/69
[2017-10-19 20:00] VITALS: BP 124/70
[2017-10-19] MEDS: SODIUM CHLORIDE 0.9% 1,000 ML IV SCH (22:13)
[2017-10-20] VITALS (10 sets, daily range): BP systolic 99–123; BP diastolic 54–75
[2017-10-20] MEDS: SODIUM CHLORIDE 0.9% 1,000 ML IV SCH ×2 (04:00→22:17)
[2017-10-20] MEDS: CHLORDIAZEPOXIDE 25MG CAPSULE PO SCH ×3 (05:14→22:15)
[2017-10-20] MEDS: PANTOPRAZOLE 80 MG in SODIUM CHLORIDE 0.9% 100 ML IV SCH ×3 (05:14→23:20)
[2017-10-20] MEDS: KETOROLAC 15MG/ML VIAL IV PRN ×3 (05:52→18:15)
[2017-10-20 06:38] LABS: HEMATOCRIT. 33.8 % (42.0-52.0); HEMOGLOBIN. 11.5 g/dL (14.0-18.0); MEAN CORPUSCULAR HEMOGLOBIN 31.4 pg (28.0-32.0); MEAN CORPUSCULAR VOLUME 92.3 fL (80.0-94.0); MEAN PLATELET VOLUME 8.5 fl (7.4-10.4); RED BLOOD CELL COUNT 3.67 mill/uL (4.7-6.1); RED CELL DISTRIBUTION WIDTH 17.3 % (11.6-14.6)
[2017-10-20 07:12] LABS: CHLORIDE 104 mEq/L (98-107)
[2017-10-20 07:23] LABS: PLATELET 20 x1000/uL (130-400)
[2017-10-20 09:36] LABS: PLATELET ESTIMATE MARKEDLY DECREASED
[2017-10-20] MEDS: OCTREOTIDE 1,000 MCG in SODIUM CHLORIDE 0.9% 98 ML IV SCH (13:13)
[2017-10-21 00:35] VITALS: BP 121/67
[2017-10-21] MEDS: KETOROLAC 15MG/ML VIAL IV PRN ×3 (02:05→13:45)
[2017-10-21 04:00] VITALS: BP 116/67
[2017-10-21] MEDS: CHLORDIAZEPOXIDE 25MG CAPSULE PO SCH ×2 (05:20→13:45)
[2017-10-21] MEDS: SODIUM CHLORIDE 0.9% 1,000 ML IV SCH (05:29)
[2017-10-21] MEDS: OCTREOTIDE 1,000 MCG in SODIUM CHLORIDE 0.9% 98 ML IV SCH (09:07)
[2017-10-21] MEDS: PANTOPRAZOLE 80 MG in SODIUM CHLORIDE 0.9% 100 ML IV SCH (09:07)
[2017-10-21 15:19] VITALS: BP 116/67
== END 2017-10-21 16:19 | disposition home or self-care (01) | DRG 280 ==
LOC: ER 07:23 → 5WST 10:13 → ENRESERV 10:36
PROVIDERS: ADMIT Internal Medicine; ATTEND Internal Medicine
PROC: 30233R1 Transfusion of Nonautologous Platelets into Peripheral Vein, Percutaneous Approach (ICD-10-PCS; principal; 2017-10-20)
DX: K70.30 Alcoholic cirrhosis of liver without ascites (principal); D61.818 Other pancytopenia; K76.6 Portal hypertension; R16.1 Splenomegaly, not elsewhere classified; F10.20 Alcohol dependence, uncomplicated; K64.9 Unspecified hemorrhoids; F41.9 Anxiety disorder, unspecified; N32.89 Other specified disorders of bladder; Z91.19 Patient's noncompliance with other medical treatment and regimen; Z87.11 Personal history of peptic ulcer disease; Z87.891 Personal history of nicotine dependence; Z79.899 Other long term (current) drug therapy; Z88.6 Allergy status to analgesic agent; Z88.8 Allergy status to other drugs, medicaments and biological substances; Z83.3 Family history of diabetes mellitus
CPT/HCPCS: 36415; 71045; 74176; 76705; 80048; 80053; 81003; 82105; 83690; 83735; 84100; 84484; 85025; 85610; 85730; 86850; 86900; 86945; 93005; 93970; C1893; C9113; J1200; J1885; J2270; J2354; J2405; J3411; J3480; J3490; J7030; J7050; P9034

== ENCOUNTER 2017-11-01 16:29 | Emergency (ER) | payer SELFPAY ==
[~2017-11-01] VITALS: Ht 170.2 cm; Wt 69.0 kg
[2017-11-01] MEDS ORDERED: SODIUM CHLORIDE 0.9% 1,000 ML IV ONE (17:30)
[2017-11-01] MEDS ORDERED: MAGNESIUM/ALUMINUM HYDROXIDE/SIMETHICONE 30ML UDC PO STA (19:07)
[2017-11-01] MEDS ORDERED: DICYCLOMINE 10 MG/5 ML ORAL SYR PO STA (19:07)
[2017-11-01] MEDS ORDERED: VISCOUS LIDOCAINE 2% 15 ML UDC PO STA (19:07)
[2017-11-01 22:09] VITALS: BP 110/69
== END 2017-11-01 22:13 | disposition home or self-care (01) ==
LOC: ER 16:29
DX: R10.9 Unspecified abdominal pain (principal); G89.29 Other chronic pain; F10.10 Alcohol abuse, uncomplicated; D64.9 Anemia, unspecified; F41.9 Anxiety disorder, unspecified; F32.9 Major depressive disorder, single episode, unspecified; Z88.6 Allergy status to analgesic agent; Z91.018 Allergy to other foods; Z98.890 Other specified postprocedural states
CPT/HCPCS: 36415; 99284; G0482; J7030; Z7610

== ENCOUNTER 2017-11-10 04:47 | Inpatient (IN) | payer SELFPAY ==
[~2017-11-10] VITALS: Ht 162.6 cm; Wt 68.9 kg
[2017-11-10] VITALS (7 sets, daily range): BP systolic 113–127; BP diastolic 71–86
[2017-11-10] MEDS ORDERED: SODIUM CHLORIDE 0.9% 1,000 ML IV ONE (05:20)
[2017-11-10] MEDS ORDERED: MORPHINE SULFATE 4 MG/ML CPJ (NOT FOR IM USE) IV STA (05:20)
[2017-11-10] MEDS ORDERED: OCTREOTIDE 1,000 MCG in SODIUM CHLORIDE 0.9% 100 ML IV STA (05:20)
[2017-11-10] MEDS ORDERED: OCTREOTIDE ACETATE 50 MCG/ML 1ML IV STA (05:20)
[2017-11-10] MEDS ORDERED: ONDANSETRON HCL 4MG/2ML VIAL IV STA (05:20)
[2017-11-10] MEDS ORDERED: PANTOPRAZOLE SODIUM 40 MG/VIAL IV STA (05:20)
[2017-11-10] MEDS ORDERED: CEFTRIAXONE 1 G PREMIX 50 ML IV ONE (05:30)
[2017-11-10] MEDS ORDERED: OCTREOTIDE 1,000 MCG in SODIUM CHLORIDE 0.9% 98 ML IV STA (05:52)
[2017-11-10 05:55] LABS: BASOPHILS % 0.6 % (0.0-2.0); EOSINOPHILS % 0.2 % (0.0-5.0); HEMATOCRIT. 30.4 % (42.0-52.0); LYMPHOCYTES % 20.3 % (20.0-50.0); MEAN CORPUSCULAR HEMOGLOBIN 30.4 pg (28.0-32.0); MEAN PLATELET VOLUME 8.9 fl (7.4-10.4); MONOCYTES % 11.1 % (2.0-8.0); NEUTROPHILS % 67.8 % (40.0-76.0); RED CELL DISTRIBUTION WIDTH 18.2 % (11.6-14.6)
[2017-11-10 05:57] LABS: PLATELET 24 x1000/uL (130-400)
[2017-11-10] MEDS ORDERED: OCTREOTIDE 1,000 MCG in SODIUM CHLORIDE 0.9% 98 ML IV ONE (06:00)
[2017-11-10 06:01] LABS: CHLORIDE 106 mEq/L (98-107)
[2017-11-10 06:04] LABS: INR 1.3; PARTIAL THROMBOPLASTIN TIME 28.8 sec (23.4-31.0); PROTHROMBIN TIME 13.4 sec (9.4-11.6)
[2017-11-10 06:05] LABS: ETHANOL BLOOD 161 mg/dL
[2017-11-10] MEDS ORDERED: SODIUM CHLORIDE 0.9% 1,000 ML IV SCH (06:12)
[2017-11-10 07:11] LABS: METHADONE URINE SCREEN NEGATIVE (NEGATIVE); OPIATES URINE SCREEN NEGATIVE (NEGATIVE); PHENCYCLIDINE URINE SCREEN NEGATIVE (NEGATIVE)
[2017-11-10 07:12] LABS: *AMPHETAMINES SCREEN URINE PRESUMTIVE POSITIVE (NEGATIVE); *BARBITURATES SCREEN URINE NEGATIVE (NEGATIVE); *BENZODIAZEPINES SCREEN URINE PRESUMTIVE POSITIVE (NEGATIVE); *COCAINE SCREEN URINE NEGATIVE (NEGATIVE); CANNABINOID URINE SCREEN NEGATIVE (NEGATIVE)
[2017-11-10] MEDS ORDERED: MAGNESIUM 2 G PREMIX 50 ML IV ONE (10:30)
[2017-11-10] MEDS ORDERED: ONDANSETRON HCL 4MG/2ML VIAL IV PRN (10:30)
[2017-11-10] MEDS ORDERED: KCL 20MEQ/100ML PREMIX 100 ML IV NR (11:00)
[2017-11-10 11:37] LABS: HEMATOCRIT 27.1 % (42.0-52.0); HEMOGLOBIN 9.1 g/dL (14.0-18.0); MEAN CORPUSCULAR VOLUME 92.7 fL (80.0-94.0); RED BLOOD CELL COUNT 2.93 mill/uL (4.7-6.1); RED CELL DISTRIBUTION WIDTH 18.1 % (11.6-14.6)
[2017-11-10] MEDS ORDERED: LORAZEPAM 2MG/ML CPJ IV PRN ×2 (12:00)
[2017-11-10] MEDS ORDERED: PANTOPRAZOLE 80 MG in SODIUM CHLORIDE 0.9% 100 ML IV SCH (12:00)
[2017-11-10] MEDS ORDERED: MVI, ADULT NO.1 10 ML, FOLIC ACID 1 MG, THIAMINE HCL 100 MG in SODIUM CHLORIDE 0.9% 1,0... IV SCH ×4 (12:00)
[2017-11-10] MEDS ORDERED: KCL 20MEQ/100ML PREMIX 100 ML IV ONE (12:00)
[2017-11-10] MEDS ORDERED: PANTOPRAZOLE SODIUM 40 MG/VIAL IV SCH ×2 (12:15→18:00)
[2017-11-10] MEDS ORDERED: OCTREOTIDE 1,000 MCG in SODIUM CHLORIDE 0.9% 100 ML IV SCH (12:30)
[2017-11-10] MEDS: MORPHINE SULFATE 4 MG/ML CPJ (NOT FOR IM USE) IV PRN (12:33)
[2017-11-10 13:33] LABS: AMMONIA 57 uMol/L (<32)
[2017-11-10] MEDS ORDERED: CHLORDIAZEPOXIDE 25MG CAPSULE PO SCH (14:00)
[2017-11-10] MEDS: SODIUM CHLORIDE 0.9% 1,000 ML IV SCH ×2 (15:07→20:16)
[2017-11-10] MEDS: LACTULOSE 20G/30ML UDC PO SCH (17:41)
[2017-11-11] VITALS (15 sets, daily range): BP systolic 99–127; BP diastolic 42–74
[2017-11-11 00:24] LABS: HEMATOCRIT 24.4 % (42.0-52.0); HEMOGLOBIN 8.2 g/dL (14.0-18.0); MEAN CORPUSCULAR HEMOGLOBIN 31.2 pg (28.0-32.0); MEAN CORPUSCULAR VOLUME 92.8 fL (80.0-94.0); RED BLOOD CELL COUNT 2.63 mill/uL (4.7-6.1); RED CELL DISTRIBUTION WIDTH 17.9 % (11.6-14.6)
[2017-11-11 00:39] LABS: PLATELET 15 x1000/uL (130-400)
[2017-11-11] MEDS: SODIUM CHLORIDE 0.9% 1,000 ML IV SCH ×2 (05:47→18:21)
[2017-11-11 07:04] LABS: HEMATOCRIT 25.2 % (42.0-52.0); HEMOGLOBIN 8.4 g/dL (14.0-18.0); MEAN CORPUSCULAR VOLUME 92.9 fL (80.0-94.0); RED BLOOD CELL COUNT 2.72 mill/uL (4.7-6.1)
[2017-11-11 08:01] LABS: CHLORIDE 108 mEq/L (98-107)
[2017-11-11 08:14] LABS: PHOSPHORUS 2.3 mg/dL (2.5-4.9)
[2017-11-11 08:31] LABS: PLATELET 16 x1000/uL (130-400)
[2017-11-11] MEDS: LACTULOSE 20G/30ML UDC PO SCH ×2 (09:44→18:40)
[2017-11-11] MEDS ORDERED: POTASSIUM PHOS,M-BASIC-D-BASIC 15 MMOL in DEXT 5% WATER 245 ML IV SCH (10:00)
[2017-11-11 11:11] LABS: HEMATOCRIT 24.7 % (42.0-52.0); HEMOGLOBIN 8.3 g/dL (14.0-18.0); MEAN CORPUSCULAR HEMOGLOBIN 31.2 pg (28.0-32.0); MEAN CORPUSCULAR VOLUME 92.7 fL (80.0-94.0); RED BLOOD CELL COUNT 2.66 mill/uL (4.7-6.1); RED CELL DISTRIBUTION WIDTH 17.5 % (11.6-14.6)
[2017-11-11 11:19] LABS: AMMONIA 55 uMol/L (<32)
[2017-11-11 11:41] LABS: PLATELET 18 x1000/uL (130-400)
[2017-11-11] MEDS: PANTOPRAZOLE SODIUM 40 MG/VIAL IV SCH ×2 (14:28→20:37)
[2017-11-11 15:34] LABS: HEMATOCRIT 24.8 % (42.0-52.0); HEMOGLOBIN 8.4 g/dL (14.0-18.0)
[2017-11-11 15:45] LABS: AMMONIA 72 uMol/L (<32)
[2017-11-11 16:42] LABS: PLATELET 18 x1000/uL (130-400)
[2017-11-11 19:17] LABS: HEMOGLOBIN 8.5 g/dL (14.0-18.0)
[2017-11-11 19:22] LABS: INR 1.2; PROTHROMBIN TIME 12.7 sec (9.4-11.6)
[2017-11-11] MEDS: MORPHINE SULFATE 4 MG/ML CPJ (NOT FOR IM USE) IV PRN (20:37)
[2017-11-11] MEDS: OCTREOTIDE 1,000 MCG in SODIUM CHLORIDE 0.9% 98 ML IV SCH (21:01)
[2017-11-11 23:08] LABS: HEMATOCRIT 24.1 % (42.0-52.0); HEMOGLOBIN 8.4 g/dL (14.0-18.0)
[2017-11-12] VITALS (13 sets, daily range): BP systolic 89–127; BP diastolic 35–72
[2017-11-12] MEDS: DIPHENHYDRAMINE 50MG/ML VIAL IV PRN (00:19)
[2017-11-12] MEDS: SODIUM CHLORIDE 0.9% 1,000 ML IV SCH ×2 (04:32→14:57)
[2017-11-12 07:23] LABS: CHLORIDE 104 mEq/L (98-107)
[2017-11-12 07:33] LABS: HEMATOCRIT. 26.1 % (42.0-52.0); HEMOGLOBIN. 8.9 g/dL (14.0-18.0); MEAN CORPUSCULAR HEMOGLOBIN 31.4 pg (28.0-32.0); MEAN CORPUSCULAR VOLUME 92.1 fL (80.0-94.0); MEAN PLATELET VOLUME 9.7 fl (7.4-10.4); RED BLOOD CELL COUNT 2.83 mill/uL (4.7-6.1); RED CELL DISTRIBUTION WIDTH 17.8 % (11.6-14.6)
[2017-11-12 07:45] LABS: PHOSPHORUS 2.7 mg/dL (2.5-4.9)
[2017-11-12 09:13] LABS: PLATELET 25 x1000/uL (130-400)
[2017-11-12 10:25] LABS: AMMONIA 72 uMol/L (<32)
[2017-11-12] MEDS: PANTOPRAZOLE SODIUM 40 MG/VIAL IV SCH ×2 (10:56→21:01)
[2017-11-12 14:19] LABS: NUCLEATED RED BLOOD CELLS 2 /100 WBC
[2017-11-12 14:20] LABS: PLATELET ESTIMATE MARKEDLY DECREASED
[2017-11-12] MEDS: LACTULOSE 20G/30ML UDC PO SCH ×2 (14:54→21:01)
[2017-11-12] MEDS: OCTREOTIDE 1,000 MCG in SODIUM CHLORIDE 0.9% 98 ML IV SCH (14:57)
[2017-11-12 19:38] LABS: HEMATOCRIT 25.5 % (42.0-52.0); HEMOGLOBIN 8.7 g/dL (14.0-18.0)
[2017-11-12] MEDS: MORPHINE SULFATE 4 MG/ML CPJ (NOT FOR IM USE) IV PRN (21:00)
[2017-11-13] VITALS (9 sets, daily range): BP systolic 104–132; BP diastolic 61–83
[2017-11-13] MEDS: DIPHENHYDRAMINE 50MG/ML VIAL IV PRN (00:13)
[2017-11-13] MEDS: SODIUM CHLORIDE 0.9% 1,000 ML IV SCH ×2 (00:15→08:24)
[2017-11-13] MEDS: LACTULOSE 20G/30ML UDC PO SCH ×2 (06:13→13:08)
[2017-11-13 07:44] LABS: AMMONIA 60 uMol/L (<32)
[2017-11-13 08:32] LABS: HEMATOCRIT. 24.3 % (42.0-52.0); HEMOGLOBIN. 8.2 g/dL (14.0-18.0); MEAN CORPUSCULAR HEMOGLOBIN 31.3 pg (28.0-32.0); MEAN CORPUSCULAR VOLUME 92.5 fL (80.0-94.0); MEAN PLATELET VOLUME 9.5 fl (7.4-10.4); RED BLOOD CELL COUNT 2.63 mill/uL (4.7-6.1); RED CELL DISTRIBUTION WIDTH 17.5 % (11.6-14.6)
[2017-11-13] MEDS: PANTOPRAZOLE SODIUM 40 MG/VIAL IV SCH (09:27)
[2017-11-13] MEDS: OCTREOTIDE 1,000 MCG in SODIUM CHLORIDE 0.9% 98 ML IV SCH (09:28)
[2017-11-13] MEDS: MORPHINE SULFATE 4 MG/ML CPJ (NOT FOR IM USE) IV PRN (09:39)
[2017-11-13 14:03] LABS: PLATELET ESTIMATE MARKEDLY DECREASED
[2017-11-13 14:04] LABS: PLATELET 28 x1000/uL (130-400)
== END 2017-11-13 19:00 | disposition home or self-care (01) | DRG 280 ==
LOC: ER 05:25 → 5EST 06:16 → EDBEDREQ 06:17 → EDBEDREQTM 06:17 → ENRESERV 07:01 → CANRESERV 07:01 → ENRESERV 07:24 → 5EST 09:41
PROVIDERS: ADMIT Internal Medicine; ATTEND Internal Medicine
PROC: 30233R1 Transfusion of Nonautologous Platelets into Peripheral Vein, Percutaneous Approach (ICD-10-PCS; principal; 2017-11-11)
DX: K70.30 Alcoholic cirrhosis of liver without ascites (principal); D61.818 Other pancytopenia; I85.10 Secondary esophageal varices without bleeding; K76.6 Portal hypertension; F15.10 Other stimulant abuse, uncomplicated; K31.89 Other diseases of stomach and duodenum; K44.9 Diaphragmatic hernia without obstruction or gangrene; F10.20 Alcohol dependence, uncomplicated; Z83.3 Family history of diabetes mellitus; Z88.6 Allergy status to analgesic agent; Z88.8 Allergy status to other drugs, medicaments and biological substances; Z79.899 Other long term (current) drug therapy
CPT/HCPCS: 36415; 71045; 80048; 80053; 80305; 82140; 83605; 83690; 83735; 84100; 84484; 85014; 85018; 85025; 85027; 85044; 85049; 85384; 85610; 85730; 86850; 86900; 86945; 93005; 96365; 96366; 96375; 99291; C9113; G0482; J0696; J1200; J2270; J2354; J2405; J3411; J3480; J3490; J7030; J7050; J7060; P9034

== ENCOUNTER 2017-11-21 19:08 | Inpatient (IN) | payer SELFPAY ==
[~2017-11-21] VITALS: Ht 167.6 cm; Wt 74.8 kg
[2017-11-21] MEDS ORDERED: ONDANSETRON HCL 4MG/2ML VIAL IV STA (23:46)
[2017-11-21] MEDS ORDERED: MORPHINE SULFATE 4 MG/ML CPJ (NOT FOR IM USE) IV STA (23:46)
[2017-11-21] MEDS ORDERED: SODIUM CHLORIDE 0.9% 1,000 ML IV ONE (23:46)
[2017-11-22 00:41] LABS: HEMATOCRIT. 26.9 % (42.0-52.0); MEAN CORPUSCULAR VOLUME 89.3 fL (80.0-94.0); MEAN PLATELET VOLUME 8.5 fl (7.4-10.4); RED BLOOD CELL COUNT 3.02 mill/uL (4.7-6.1); RED CELL DISTRIBUTION WIDTH 18.5 % (11.6-14.6)
[2017-11-22 00:44] LABS: PLATELET 42 x1000/uL (130-400)
[2017-11-22 00:47] LABS: CHLORIDE 113 mEq/L (98-107)
[2017-11-22 00:51] LABS: ETHANOL BLOOD 248 mg/dL
[2017-11-22 01:38] LABS: CLARITY URINE CLEAR (CLEAR); COLOR URINE DARK YELLOW (YELLOW); KETONES URINE TRACE (NEGATIVE); LEUKOCYTE ESTERASE URINE NEGATIVE (NEGATIVE); NITRITE URINE NEGATIVE (NEGATIVE); OCCULT BLOOD URINE NEGATIVE (NEGATIVE); PH URINE 5.5 (4.5-8.0); PROTEIN URINE NEGATIVE (NEGATIVE)
[2017-11-22 02:11] LABS: *AMPHETAMINES SCREEN URINE PRESUMTIVE POSITIVE (NEGATIVE); *BARBITURATES SCREEN URINE NEGATIVE (NEGATIVE); *COCAINE SCREEN URINE NEGATIVE (NEGATIVE); CANNABINOID URINE SCREEN NEGATIVE (NEGATIVE); OPIATES URINE SCREEN NEGATIVE (NEGATIVE); PHENCYCLIDINE URINE SCREEN NEGATIVE (NEGATIVE)
[2017-11-22 02:12] LABS: *BENZODIAZEPINES SCREEN URINE PRESUMTIVE POSITIVE (NEGATIVE); METHADONE URINE SCREEN NEGATIVE (NEGATIVE)
[2017-11-22 04:02] VITALS: BP 123/68
[2017-11-22] MEDS ORDERED: LORAZEPAM 2MG/ML CPJ IV PRN (04:45)
[2017-11-22] MEDS ORDERED: SODIUM CHLORIDE 0.9% 1,000 ML IV SCH (04:45)
[2017-11-22 07:26] LABS: PLATELET ESTIMATE DECREASED
[2017-11-22 08:00] VITALS: BP 101/55
[2017-11-22] MEDS: ONDANSETRON HCL 4MG/2ML VIAL IV PRN (08:55)
[2017-11-22] MEDS ORDERED: ENOXAPARIN 40MG/0.4ML SYR SUBCUT SCH (09:00)
[2017-11-22] MEDS ORDERED: ENOXAPARIN 30MG/0.3ML SYR SUBCUT SCH (09:00)
[2017-11-22] MEDS: DEXT 5%/0.45% NACL 1000ML 1,000 ML IV SCH ×3 (09:01→21:21)
[2017-11-22 12:00] VITALS: BP 106/64
[2017-11-22] MEDS: PANTOPRAZOLE SODIUM 40 MG/VIAL IV SCH ×2 (13:28→21:00)
[2017-11-22] MEDS: LACTULOSE 20G/30ML UDC PO SCH ×2 (13:28→23:55)
[2017-11-22 16:00] VITALS: BP 105/62
[2017-11-22] MEDS: SUCRALFATE 1 G/10 ML UDC PO SCH ×2 (17:37→23:55)
[2017-11-22 18:53] LABS: HEMATOCRIT. 24.8 % (42.0-52.0); HEMOGLOBIN. 8.3 g/dL (14.0-18.0); MEAN CORPUSCULAR HEMOGLOBIN 29.6 pg (28.0-32.0); MEAN CORPUSCULAR VOLUME 88.9 fL (80.0-94.0); MEAN PLATELET VOLUME 8.3 fl (7.4-10.4); RED BLOOD CELL COUNT 2.79 mill/uL (4.7-6.1); RED CELL DISTRIBUTION WIDTH 18.5 % (11.6-14.6)
[2017-11-22 19:02] LABS: CHLORIDE 106 mEq/L (98-107)
[2017-11-22 19:07] LABS: AMYLASE 109 IU/L (25-115)
[2017-11-22 19:22] LABS: PLATELET 33 x1000/uL (130-400)
[2017-11-22 19:23] LABS: AMMONIA 79 uMol/L (<32)
[2017-11-22 19:54] LABS: PLATELET ESTIMATE MARKEDLY DECREASED
[2017-11-22 20:00] VITALS: BP 104/51
[2017-11-22 23:54] LABS: HEMATOCRIT 23.9 % (42.0-52.0)
[2017-11-23] VITALS: BP 119/59
[2017-11-23 04:00] VITALS: BP 100/52
[2017-11-23] MEDS: LACTULOSE 20G/30ML UDC PO SCH ×3 (06:41→20:59)
[2017-11-23] MEDS: SUCRALFATE 1 G/10 ML UDC PO SCH ×3 (06:41→17:09)
[2017-11-23] MEDS: DEXT 5%/0.45% NACL 1000ML 1,000 ML IV SCH ×4 (06:44→20:59)
[2017-11-23 06:56] LABS: CHLORIDE 107 mEq/L (98-107)
[2017-11-23 07:38] LABS: HEMATOCRIT. 24.7 % (42.0-52.0); HEMOGLOBIN. 8.4 g/dL (14.0-18.0); MEAN CORPUSCULAR HEMOGLOBIN 29.8 pg (28.0-32.0); MEAN PLATELET VOLUME 8.9 fl (7.4-10.4); RED BLOOD CELL COUNT 2.81 mill/uL (4.7-6.1); RED CELL DISTRIBUTION WIDTH 18.1 % (11.6-14.6)
[2017-11-23 08:00] VITALS: BP 107/58
[2017-11-23] MEDS ORDERED: FILGRASTIM 300 MCG/ML VIAL SUBCUT ONE (08:45)
[2017-11-23] MEDS: POTASSIUM CHLORIDE 20MEQ TABLET SR PO SCH (09:06)
[2017-11-23] MEDS: PANTOPRAZOLE SODIUM 40 MG/VIAL IV SCH ×2 (09:06→20:58)
[2017-11-23] MEDS: ONDANSETRON HCL 4MG/2ML VIAL IV PRN ×2 (09:15→21:12)
[2017-11-23] MEDS: MORPHINE SULFATE 4 MG/ML CPJ (NOT FOR IM USE) IV PRN ×2 (09:16→17:10)
[2017-11-23] MEDS ORDERED: MAGNESIUM 2 G PREMIX 50 ML IV NR (09:30)
[2017-11-23] MEDS ORDERED: FILGRASTIM-TBO 300 MCG/0.5 ML SYRINGE SQ SCH (10:00)
[2017-11-23 10:31] LABS: PLATELET 35 x1000/uL (130-400); PLATELET ESTIMATE MARKEDLY DECREASED
[2017-11-23 12:00] VITALS: BP 96/55
[2017-11-23 15:57] VITALS: BP 102/51
[2017-11-23 20:00] VITALS: BP 98/56
[2017-11-24] VITALS: BP 105/53
[2017-11-24] MEDS: SUCRALFATE 1 G/10 ML UDC PO SCH ×3 (00:30→12:42)
[2017-11-24] MEDS: MORPHINE SULFATE 4 MG/ML CPJ (NOT FOR IM USE) IV PRN (03:36)
[2017-11-24 04:00] VITALS: BP 97/54
[2017-11-24] MEDS: LACTULOSE 20G/30ML UDC PO SCH ×2 (06:22→13:03)
[2017-11-24 08:00] VITALS: BP 110/48
[2017-11-24] MEDS: ONDANSETRON HCL 4MG/2ML VIAL IV PRN (09:19)
[2017-11-24] MEDS: POTASSIUM CHLORIDE 20MEQ TABLET SR PO SCH (09:19)
[2017-11-24] MEDS: PANTOPRAZOLE SODIUM 40 MG/VIAL IV SCH (09:19)
[2017-11-24] MEDS ORDERED: MAGNESIUM 2 G PREMIX 50 ML IV NR (11:30)
[2017-11-24 12:00] VITALS: BP 94/57
[2017-11-24 12:25] VITALS: BP 110/48
[2017-11-24] MEDS ORDERED: MAGNESIUM/ALUMINUM HYDROXIDE/SIMETHICONE 30ML UDC PO PRN (13:00)
[2017-11-24 15:15] LABS: HEMATOCRIT. 25.9 % (42.0-52.0); HEMOGLOBIN. 8.6 g/dL (14.0-18.0); MEAN CORPUSCULAR HEMOGLOBIN 29.6 pg (28.0-32.0); MEAN CORPUSCULAR VOLUME 89.6 fL (80.0-94.0); MEAN PLATELET VOLUME 9.3 fl (7.4-10.4); RED BLOOD CELL COUNT 2.89 mill/uL (4.7-6.1); RED CELL DISTRIBUTION WIDTH 18.2 % (11.6-14.6)
[2017-11-24 15:27] LABS: CHLORIDE 108 mEq/L (98-107)
[2017-11-24 15:33] LABS: PLATELET 37 x1000/uL (130-400)
[2017-11-24 16:00] VITALS: BP 98/54
[2017-11-24 16:58] LABS: PLATELET ESTIMATE MARKEDLY DECREASED
== END 2017-11-24 17:05 | disposition home or self-care (01) | DRG 279 ==
LOC: ER 19:18 → EDBEDREQ 11-22 01:48 → ENRESERV 11-22 02:07 → 6EST 11-22 02:07
PROVIDERS: ADMIT Internal Medicine Nephrology; ATTEND Internal Medicine Nephrology
DX: K72.90 Hepatic failure, unspecified without coma (principal); E43 Unspecified severe protein-calorie malnutrition; D61.818 Other pancytopenia; K85.90 Acute pancreatitis without necrosis or infection, unspecified; E87.0 Hyperosmolality and hypernatremia; K76.6 Portal hypertension; E87.8 Other disorders of electrolyte and fluid balance, not elsewhere classified; D69.6 Thrombocytopenia, unspecified; K86.1 Other chronic pancreatitis; K70.30 Alcoholic cirrhosis of liver without ascites; E87.6 Hypokalemia; F10.20 Alcohol dependence, uncomplicated; K44.9 Diaphragmatic hernia without obstruction or gangrene; K31.9 Disease of stomach and duodenum, unspecified; Z60.2 Problems related to living alone; F15.10 Other stimulant abuse, uncomplicated; F19.10 Other psychoactive substance abuse, uncomplicated; D72.825 Bandemia; E83.51 Hypocalcemia; R04.0 Epistaxis; K92.1 Melena; Y90.8 Blood alcohol level of 240 mg/100 ml or more; Z87.11 Personal history of peptic ulcer disease; Z88.8 Allergy status to other drugs, medicaments and biological substances; Z88.6 Allergy status to analgesic agent; Z79.899 Other long term (current) drug therapy; Z68.26 Body mass index [BMI] 26.0-26.9, adult
CPT/HCPCS: 36415; 80048; 80053; 80305; 81003; 82140; 82150; 82270; 83690; 83735; 85014; 85018; 85025; 86703; 93970; 96361; 96374; 96375; 97162; 97530; 99285; C9113; G0482; J1442; J2060; J2270; J2405; J3475; J3490; J7030

== ENCOUNTER 2017-11-29 16:02 | Inpatient (IN) | payer SELFPAY ==
[~2017-11-29] VITALS: Ht 162.6 cm; Wt 69.9 kg
[2017-11-29 17:26] LABS: HEMATOCRIT. 26.2 % (42.0-52.0); HEMOGLOBIN. 8.6 g/dL (14.0-18.0); MEAN CORPUSCULAR HEMOGLOBIN 29.2 pg (28.0-32.0); MEAN CORPUSCULAR VOLUME 89.1 fL (80.0-94.0); MEAN PLATELET VOLUME 9.8 fl (7.4-10.4); RED BLOOD CELL COUNT 2.94 mill/uL (4.7-6.1); RED CELL DISTRIBUTION WIDTH 19.3 % (11.6-14.6)
[2017-11-29 17:30] LABS: CHLORIDE 108 mEq/L (98-107)
[2017-11-29 17:32] LABS: INR 1.2; PROTHROMBIN TIME 12.3 sec (9.1-11.1)
[2017-11-29 17:33] LABS: PLATELET 36 x1000/uL (130-400)
[2017-11-29 17:37] LABS: ETHANOL BLOOD 193 mg/dL
[2017-11-29 18:16] LABS: PLATELET ESTIMATE MARKEDLY DECREASED
[2017-11-29] MEDS ORDERED: SODIUM CHLORIDE 0.9% 1,000 ML IV ONE (18:37)
[2017-11-29] MEDS ORDERED: MORPHINE SULFATE 4 MG/ML CPJ (NOT FOR IM USE) IV STA (18:37)
[2017-11-29] MEDS ORDERED: ONDANSETRON HCL 4MG/2ML VIAL IV STA (18:37)
[2017-11-29] MEDS ORDERED: KCL 10MEQ/50ML PREMIX 50 ML IV ONE (18:45)
[2017-11-29 19:19] LABS: CLARITY URINE CLEAR (CLEAR); COLOR URINE YELLOW (YELLOW); KETONES URINE NEGATIVE (NEGATIVE); LEUKOCYTE ESTERASE URINE NEGATIVE (NEGATIVE); NITRITE URINE NEGATIVE (NEGATIVE); OCCULT BLOOD URINE NEGATIVE (NEGATIVE); PROTEIN URINE NEGATIVE (NEGATIVE); SPECIFIC GRAVITY URINE 1.005 (1.005-1.030); UROBILINOGEN URINE 0.2 E.U./dL (0.2-1.0)
[2017-11-29] MEDS ORDERED: MORPHINE SULFATE 4 MG/ML CPJ (NOT FOR IM USE) IV ONE (22:00)
[2017-11-29] MEDS ORDERED: PANTOPRAZOLE SODIUM 40 MG/VIAL IV ONE (22:00)
[2017-11-29] MEDS ORDERED: GUAIFENESIN 200MG/10ML SUGAR FREE UDC PO PRN (22:30)
[2017-11-29] MEDS ORDERED: ACETAMINOPHEN 650MG SUPP PR PRN (22:30)
[2017-11-29] MEDS ORDERED: ACETAMINOPHEN 325MG TABLET PO PRN (22:30)
[2017-11-29] MEDS ORDERED: DIPHENHYDRAMINE 50MG/ML VIAL IV PRN (22:30)
[2017-11-29] MEDS ORDERED: CLONIDINE 0.1MG TABLET PO PRN (22:30)
[2017-11-29] MEDS ORDERED: MAGNESIUM/ALUMINUM HYDROXIDE/SIMETHICONE 30ML UDC PO PRN (22:30)
[2017-11-29] MEDS ORDERED: ACETAMINOPHEN 650MG/20.3ML UDC GT PRN (22:30)
[2017-11-29] MEDS ORDERED: DOCUSATE SODIUM 100MG CAPSULE PO PRN (22:30)
[2017-11-29] MEDS ORDERED: NA PHOS,M-B/NA PHOS,DI-BA ENEMA 118ML PR PRN (22:30)
[2017-11-29] MEDS ORDERED: IPRATROPIUM/ALBUTEROL 0.5-3(2.5)MG/3ML NEB INH PRN (22:30)
[2017-11-29] MEDS ORDERED: LORAZEPAM 2MG/ML CPJ IV PRN (22:45)
[2017-11-30] VITALS (8 sets, daily range): BP systolic 100–140; BP diastolic 53–66
[2017-11-30] MEDS: SODIUM CHLORIDE 0.45% 1,000 ML IV SCH ×2 (05:50→18:45)
[2017-11-30] MEDS: SODIUM CHLORIDE 0.9% INJ 3ML FLUSH IVF SCH ×3 (05:51→21:40)
[2017-11-30 07:09] LABS: HEMATOCRIT. 24.6 % (42.0-52.0); HEMOGLOBIN. 8.2 g/dL (14.0-18.0); MEAN CORPUSCULAR VOLUME 86.9 fL (80.0-94.0); MEAN PLATELET VOLUME 9.4 fl (7.4-10.4); RED BLOOD CELL COUNT 2.83 mill/uL (4.7-6.1)
[2017-11-30 07:53] LABS: PLATELET 22 x1000/uL (130-400)
[2017-11-30] MEDS: PANTOPRAZOLE SODIUM 40 MG/VIAL IV SCH (08:15)
[2017-11-30] MEDS: ONDANSETRON HCL 4MG/2ML VIAL IV PRN ×2 (08:15→21:40)
[2017-11-30 08:18] LABS: CHLORIDE 107 mEq/L (98-107)
[2017-11-30 08:39] LABS: LDL CHOLESTEROL 41 mg/dL (5-100)
[2017-11-30 08:40] LABS: HDL CHOLESTEROL 43 mg/dL (40-59)
[2017-11-30] MEDS ORDERED: POTASSIUM CHLORIDE 20MEQ TABLET SR PO NR (10:15)
[2017-11-30 11:17] LABS: *AMPHETAMINES SCREEN URINE NEGATIVE (NEGATIVE); *BARBITURATES SCREEN URINE NEGATIVE (NEGATIVE)
[2017-11-30 11:19] LABS: *BENZODIAZEPINES SCREEN URINE NEGATIVE (NEGATIVE); *COCAINE SCREEN URINE NEGATIVE (NEGATIVE); METHADONE URINE SCREEN NEGATIVE (NEGATIVE); OPIATES URINE SCREEN NEGATIVE (NEGATIVE)
[2017-11-30 11:20] LABS: CANNABINOID URINE SCREEN NEGATIVE (NEGATIVE); PHENCYCLIDINE URINE SCREEN NEGATIVE (NEGATIVE)
[2017-11-30 12:34] LABS: PLATELET ESTIMATE MARKEDLY DECREASED
[2017-11-30] MEDS ORDERED: POTASSIUM CHLORIDE 20MEQ TABLET SR PO PRN (14:30)
[2017-11-30 20:45] LABS: HEMATOCRIT 28.3 % (42.0-52.0); HEMOGLOBIN 9.4 g/dL (14.0-18.0)
[2017-11-30 20:54] LABS: INR 1.3; PROTHROMBIN TIME 13.2 sec (9.1-11.1)
[2017-12-01] VITALS: BP 104/56
[2017-12-01 04:00] VITALS: BP 106/54
[2017-12-01] MEDS: SODIUM CHLORIDE 0.9% INJ 3ML FLUSH IVF SCH ×3 (06:03→21:05)
[2017-12-01 08:00] VITALS: BP 125/85
[2017-12-01] MEDS: PANTOPRAZOLE SODIUM 40 MG/VIAL IV SCH (10:25)
[2017-12-01] MEDS: SODIUM CHLORIDE 0.45% 1,000 ML IV SCH (10:26)
[2017-12-01 12:00] VITALS: BP 115/63
[2017-12-01 16:00] VITALS: BP 100/51
[2017-12-01 19:27] LABS: HEMATOCRIT. 27.7 % (42.0-52.0); HEMOGLOBIN. 9.2 g/dL (14.0-18.0); MEAN CORPUSCULAR HEMOGLOBIN 28.8 pg (28.0-32.0); MEAN CORPUSCULAR VOLUME 86.9 fL (80.0-94.0); MEAN PLATELET VOLUME 10.1 fl (7.4-10.4); RED BLOOD CELL COUNT 3.19 mill/uL (4.7-6.1); RED CELL DISTRIBUTION WIDTH 18.7 % (11.6-14.6)
[2017-12-01 19:56] LABS: CHLORIDE 104 mEq/L (98-107)
[2017-12-01 20:00] VITALS: BP 107/51
[2017-12-01 20:18] LABS: PLATELET 27 x1000/uL (130-400)
[2017-12-01] MEDS: ONDANSETRON HCL 4MG/2ML VIAL IV PRN (21:04)
[2017-12-01 21:39] LABS: PLATELET ESTIMATE MARKEDLY DECREASED
[2017-12-02] VITALS (9 sets, daily range): BP systolic 98–115; BP diastolic 57–67
[2017-12-02] MEDS: SODIUM CHLORIDE 0.45% 1,000 ML IV SCH (01:58)
[2017-12-02] MEDS: SODIUM CHLORIDE 0.9% INJ 3ML FLUSH IVF SCH ×2 (05:34→13:20)
[2017-12-02 06:33] LABS: CHLORIDE 107 mEq/L (98-107)
[2017-12-02] MEDS: PANTOPRAZOLE SODIUM 40 MG/VIAL IV SCH (08:55)
[2017-12-02 17:46] LABS: HEMATOCRIT 28.4 % (42.0-52.0); HEMOGLOBIN 9.5 g/dL (14.0-18.0)
[2017-12-02 17:54] LABS: INR 1.3; PROTHROMBIN TIME 13.2 sec (9.1-11.1)
== END 2017-12-02 19:26 | disposition home or self-care (01) | DRG 282 ==
LOC: ER 16:59 → 5WST 22:17 → EDBEDREQ 22:20 → ENRESERV 22:30
PROVIDERS: ADMIT Family Medicine; ATTEND Family Medicine
PROC: 30233N1 Transfusion of Nonautologous Red Blood Cells into Peripheral Vein, Percutaneous Approach (ICD-10-PCS; principal; 2017-11-30)
PROC: 30233R1 Transfusion of Nonautologous Platelets into Peripheral Vein, Percutaneous Approach (ICD-10-PCS; 2017-12-02)
DX: K85.90 Acute pancreatitis without necrosis or infection, unspecified (principal); D70.9 Neutropenia, unspecified; D69.6 Thrombocytopenia, unspecified; K70.30 Alcoholic cirrhosis of liver without ascites; F10.10 Alcohol abuse, uncomplicated; D64.9 Anemia, unspecified; Z87.11 Personal history of peptic ulcer disease; Z88.6 Allergy status to analgesic agent; Z88.8 Allergy status to other drugs, medicaments and biological substances; Z79.899 Other long term (current) drug therapy
CPT/HCPCS: 36415; 71045; 74176; 80053; 80061; 80305; 81003; 83690; 85014; 85018; 85025; 85049; 85384; 85610; 86850; 86900; 86920; 86945; 93005; 96361; 96374; 96375; 96376; 99285; C9113; G0482; J2270; J2405; J3480; J7030; J7050; P9016; P9034

== ENCOUNTER 2017-12-05 21:04 | Emergency (ER) | payer SELFPAY ==
[~2017-12-05] VITALS: Ht 160 cm; Wt 54.0 kg
[2017-12-06 00:25] LABS: BASOPHILS % 0.8 % (0.0-2.0); EOSINOPHILS % 0.8 % (0.0-5.0); HEMATOCRIT. 26.8 % (42.0-52.0); HEMOGLOBIN. 8.8 g/dL (14.0-18.0); LYMPHOCYTES % 32.8 % (20.0-50.0); MEAN CORPUSCULAR HEMOGLOBIN 28.3 pg (28.0-32.0); MEAN CORPUSCULAR VOLUME 86.2 fL (80.0-94.0); MONOCYTES % 10.7 % (2.0-8.0); NEUTROPHILS % 54.9 % (40.0-76.0); RED BLOOD CELL COUNT 3.12 mill/uL (4.7-6.1); RED CELL DISTRIBUTION WIDTH 19.7 % (11.6-14.6)
[2017-12-06 00:33] LABS: CHLORIDE 115 mEq/L (98-107)
[2017-12-06 00:34] LABS: INR 1.2; PROTHROMBIN TIME 11.8 sec (9.1-11.1)
[2017-12-06 00:38] LABS: PLATELET 44 x1000/uL (130-400)
[2017-12-06 04:19] VITALS: BP 99/63
== END 2017-12-06 04:24 | disposition home or self-care (01) ==
LOC: ER 21:04
DX: R04.0 Epistaxis (principal); D61.818 Other pancytopenia; K70.30 Alcoholic cirrhosis of liver without ascites; F14.10 Cocaine abuse, uncomplicated; F15.10 Other stimulant abuse, uncomplicated; Z88.6 Allergy status to analgesic agent; Z88.8 Allergy status to other drugs, medicaments and biological substances
CPT/HCPCS: 36415; 80053; 85025; 85610; 86850; 86900; 99284

== ENCOUNTER 2017-12-10 16:25 | Emergency (ER) | payer SELFPAY ==
[~2017-12-10] VITALS: Ht 167.6 cm; Wt 76.0 kg
[2017-12-10] MEDS ORDERED: VISCOUS LIDOCAINE 2% 15 ML UDC PO STA (18:45)
[2017-12-10] MEDS ORDERED: MAGNESIUM/ALUMINUM HYDROXIDE/SIMETHICONE 30ML UDC PO STA (18:45)
[2017-12-10] MEDS ORDERED: SODIUM CHLORIDE 0.9% 1,000 ML IV ONE (18:45)
[2017-12-10] MEDS ORDERED: FAMOTIDINE 20MG/2ML VIAL IV ONE (18:45)
[2017-12-10 19:18] LABS: HEMATOCRIT. 25.4 % (42.0-52.0); HEMOGLOBIN. 8.3 g/dL (14.0-18.0); MEAN CORPUSCULAR HEMOGLOBIN 27.5 pg (28.0-32.0); MEAN CORPUSCULAR VOLUME 83.9 fL (80.0-94.0); MEAN PLATELET VOLUME 8.7 fl (7.4-10.4); RED BLOOD CELL COUNT 3.02 mill/uL (4.7-6.1); RED CELL DISTRIBUTION WIDTH 19.4 % (11.6-14.6)
[2017-12-10 19:20] LABS: PLATELET 36 x1000/uL (130-400)
[2017-12-10 19:24] LABS: CHLORIDE 113 mEq/L (98-107); INR 1.2; PROTHROMBIN TIME 12.5 sec (9.1-11.1)
[2017-12-10 19:35] LABS: ETHANOL BLOOD 300 mg/dL
[2017-12-10 20:06] LABS: *AMPHETAMINES SCREEN URINE PRESUMTIVE POSITIVE (NEGATIVE); CANNABINOID URINE SCREEN NEGATIVE (NEGATIVE)
[2017-12-10 20:07] LABS: *BENZODIAZEPINES SCREEN URINE PRESUMTIVE POSITIVE (NEGATIVE); *COCAINE SCREEN URINE NEGATIVE (NEGATIVE); METHADONE URINE SCREEN NEGATIVE (NEGATIVE); OPIATES URINE SCREEN NEGATIVE (NEGATIVE); PHENCYCLIDINE URINE SCREEN NEGATIVE (NEGATIVE)
[2017-12-10 20:09] LABS: *BARBITURATES SCREEN URINE NEGATIVE (NEGATIVE)
[2017-12-10 20:28] LABS: PLATELET ESTIMATE MARKEDLY DECREASED
[2017-12-11 00:30] VITALS: BP 109/66
== END 2017-12-11 01:01 | disposition home or self-care (01) ==
LOC: ER 18:42
DX: R04.0 Epistaxis (principal); F10.10 Alcohol abuse, uncomplicated; Y90.8 Blood alcohol level of 240 mg/100 ml or more; D61.818 Other pancytopenia; K85.90 Acute pancreatitis without necrosis or infection, unspecified; F17.200 Nicotine dependence, unspecified, uncomplicated; F15.10 Other stimulant abuse, uncomplicated; K21.9 Gastro-esophageal reflux disease without esophagitis; Z88.6 Allergy status to analgesic agent; Z88.8 Allergy status to other drugs, medicaments and biological substances
CPT/HCPCS: 36415; 80053; 80305; 83605; 83690; 84484; 85025; 85610; 86850; 86900; 86901; 93005; 96374; 99285; G0482; J3490; J7030; Z7610

== ENCOUNTER 2017-12-11 07:25 | Inpatient (IN) | payer SELFPAY ==
[~2017-12-11] VITALS: Ht 215.9 cm; Wt 74.8 kg
[2017-12-11] MEDS ORDERED: SODIUM CHLORIDE 0.9% 1,000 ML IV ONE (07:59)
[2017-12-11] MEDS ORDERED: ONDANSETRON HCL 4MG/2ML VIAL IV STA (07:59)
[2017-12-11] MEDS ORDERED: MORPHINE SULFATE 4 MG/ML CPJ (NOT FOR IM USE) IV STA (07:59)
[2017-12-11 08:40] LABS: HEMATOCRIT. 25.1 % (42.0-52.0); HEMOGLOBIN. 8.4 g/dL (14.0-18.0); MEAN CORPUSCULAR HEMOGLOBIN 28.2 pg (28.0-32.0); MEAN CORPUSCULAR VOLUME 84.4 fL (80.0-94.0); MEAN PLATELET VOLUME 8.7 fl (7.4-10.4); RED BLOOD CELL COUNT 2.97 mill/uL (4.7-6.1); RED CELL DISTRIBUTION WIDTH 19.5 % (11.6-14.6)
[2017-12-11 08:45] LABS: CHLORIDE 110 mEq/L (98-107)
[2017-12-11 08:52] LABS: ETHANOL BLOOD 175 mg/dL
[2017-12-11 09:33] LABS: INR 1.2; PARTIAL THROMBOPLASTIN TIME 30.6 sec (23.4-31.0); PROTHROMBIN TIME 12.1 sec (9.1-11.1)
[2017-12-11 10:04] LABS: CLARITY URINE CLEAR (CLEAR); COLOR URINE ORANGE (YELLOW); KETONES URINE 1+ (NEGATIVE); LEUKOCYTE ESTERASE URINE NEGATIVE (NEGATIVE); NITRITE URINE NEGATIVE (NEGATIVE); OCCULT BLOOD URINE NEGATIVE (NEGATIVE); PH URINE 5.5 (4.5-8.0); PROTEIN URINE NEGATIVE (NEGATIVE); SPECIFIC GRAVITY URINE 1.022 (1.005-1.030)
[2017-12-11 10:21] LABS: PLATELET ESTIMATE MARKEDLY DECREASED
[2017-12-11 10:22] LABS: PLATELET 34 x1000/uL (130-400)
[2017-12-11 10:29] LABS: PHENCYCLIDINE URINE SCREEN NEGATIVE (NEGATIVE)
[2017-12-11] MEDS ORDERED: VANCOMYCIN 1 G PREMIX 200 ML IV SCH (10:45)
[2017-12-11] MEDS ORDERED: PIPERACILLIN/TAZOBACTAM 3.375GM/50ML PREMIX IV ONE (10:45)
[2017-12-11] MEDS ORDERED: SODIUM CHLORIDE 0.9% 1000ML BAG (SEPSIS BOLUS) IV ONE (10:45)
[2017-12-11 10:47] LABS: *BARBITURATES SCREEN URINE NEGATIVE (NEGATIVE)
[2017-12-11 10:48] LABS: *AMPHETAMINES SCREEN URINE PRESUMTIVE POSITIVE (NEGATIVE)
[2017-12-11 10:49] LABS: *BENZODIAZEPINES SCREEN URINE PRESUMTIVE POSITIVE (NEGATIVE)
[2017-12-11 10:51] LABS: METHADONE URINE SCREEN NEGATIVE (NEGATIVE)
[2017-12-11 10:56] LABS: OPIATES URINE SCREEN NEGATIVE (NEGATIVE)
[2017-12-11 11:00] LABS: CANNABINOID URINE SCREEN NEGATIVE (NEGATIVE)
[2017-12-11 11:02] LABS: *COCAINE SCREEN URINE NEGATIVE (NEGATIVE)
[2017-12-11] MEDS ORDERED: ONDANSETRON HCL 4MG/2ML VIAL IV PRN (12:30)
[2017-12-11 14:50] VITALS: BP 130/54
[2017-12-11 15:57] VITALS: BP 130/54
[2017-12-11] MEDS ORDERED: ACETAMINOPHEN 650MG/20.3ML UDC GT PRN (16:45)
[2017-12-11] MEDS ORDERED: MAGNESIUM/ALUMINUM HYDROXIDE/SIMETHICONE 30ML UDC PO PRN (16:45)
[2017-12-11] MEDS ORDERED: LORAZEPAM 2MG/ML CPJ IV PRN (16:45)
[2017-12-11] MEDS ORDERED: FILGRASTIM 300 MCG/ML VIAL SUBCUT SCH (16:45)
[2017-12-11] MEDS ORDERED: CLONIDINE 0.1MG TABLET PO PRN (16:45)
[2017-12-11] MEDS: SUCRALFATE 1 G/10 ML UDC PO SCH ×2 (17:24→20:45)
[2017-12-11] MEDS: CHLORDIAZEPOXIDE 25MG CAPSULE PO SCH ×2 (17:24→20:46)
[2017-12-11] MEDS: MORPHINE SULFATE 4 MG/ML CPJ (NOT FOR IM USE) IV PRN ×2 (17:25→22:18)
[2017-12-11] MEDS: SODIUM CHLORIDE 0.9% 1,000 ML IV SCH (17:29)
[2017-12-11] MEDS ORDERED: ONDANSETRON 4MG ODT PO PRN (17:30)
[2017-12-11] MEDS ORDERED: BISACODYL 10MG SUPP PR SCH (18:15)
[2017-12-11 20:00] VITALS: BP 129/60
[2017-12-11] MEDS: FILGRASTIM-TBO 300 MCG/0.5 ML SYRINGE SQ SCH (20:46)
[2017-12-11 23:56] LABS: CREATINE KINASE 302 IU/L (39-308)
[2017-12-12] VITALS (9 sets, daily range): BP systolic 100–127; BP diastolic 51–70
[2017-12-12 00:14] LABS: CREATINE KINASE MB FRACTION 3.2 ng/mL (0.5-3.6)
[2017-12-12] MEDS: SODIUM CHLORIDE 0.9% 1,000 ML IV SCH ×2 (02:42→17:22)
[2017-12-12] MEDS: CHLORDIAZEPOXIDE 25MG CAPSULE PO SCH ×3 (06:13→22:12)
[2017-12-12] MEDS: OMEPRAZOLE 20MG CAPSULE EXTENDED RELEASE PO SCH (06:14)
[2017-12-12] MEDS: SUCRALFATE 1 G/10 ML UDC PO SCH ×4 (06:14→22:12)
[2017-12-12] MEDS: MORPHINE SULFATE 4 MG/ML CPJ (NOT FOR IM USE) IV PRN (06:25)
[2017-12-12] MEDS ORDERED: PIPERACILLIN/TAZ 3.375G PREMIX 50 ML IV ONE (06:45)
[2017-12-12 07:48] LABS: CHLORIDE 103 mEq/L (98-107)
[2017-12-12 07:56] LABS: MEAN CORPUSCULAR HEMOGLOBIN 28.3 pg (28.0-32.0); MEAN CORPUSCULAR VOLUME 84.4 fL (80.0-94.0); RED BLOOD CELL COUNT 2.46 mill/uL (4.7-6.1); RED CELL DISTRIBUTION WIDTH 19.3 % (11.6-14.6)
[2017-12-12 07:59] LABS: CREATINE KINASE 236 IU/L (39-308)
[2017-12-12 08:05] LABS: CREATINE KINASE MB FRACTION 2.5 ng/mL (0.5-3.6)
[2017-12-12] MEDS: FOLIC ACID 1MG TABLET PO SCH (08:36)
[2017-12-12] MEDS: DOCUSATE SODIUM 250MG CAPSULE PO SCH (08:36)
[2017-12-12] MEDS: POTASSIUM CHLORIDE 20MEQ TABLET SR PO SCH (08:36)
[2017-12-12] MEDS: THIAMINE HCL 100MG TABLET PO SCH (08:37)
[2017-12-12] MEDS: MULTIVITAMINS,THER W-MINERALS TABLET PO SCH (08:37)
[2017-12-12] MEDS ORDERED: PIPERACILLIN/TAZ 3.375G PREMIX 50 ML IV NR (09:00)
[2017-12-12 09:07] LABS: HEMATOCRIT. 20.8 % (42.0-52.0); PLATELET 21 x1000/uL (130-400)
[2017-12-12] MEDS ORDERED: MAGNESIUM 2 G PREMIX 50 ML IV ONE (11:00)
[2017-12-12] MEDS ORDERED: POTASSIUM CHLORIDE 20MEQ TABLET SR PO SCH (11:00)
[2017-12-12 12:02] LABS: PLATELET ESTIMATE MARKEDLY DECREASED
[2017-12-12] MEDS ORDERED: MAGNESIUM SULFATE 2 GM in DEXTROSE 5% WATER 50 ML IV NR (13:00)
[2017-12-12] MEDS: PIPERACILLIN/TAZ 3.375G PREMIX 50 ML IV SCH ×2 (17:22→22:12)
[2017-12-12] MEDS: FILGRASTIM-TBO 300 MCG/0.5 ML SYRINGE SQ SCH (22:13)
[2017-12-12 23:50] LABS: HEMOGLOBIN 7.7 g/dL (14.0-18.0)
[2017-12-13] VITALS: BP 97/55
[2017-12-13] MEDS: PIPERACILLIN/TAZ 3.375G PREMIX 50 ML IV SCH ×2 (03:50→09:27)
[2017-12-13] MEDS: SODIUM CHLORIDE 0.9% 1,000 ML IV SCH ×2 (03:51→09:27)
[2017-12-13 04:00] VITALS: BP 107/58
[2017-12-13] MEDS: MORPHINE SULFATE 4 MG/ML CPJ (NOT FOR IM USE) IV PRN ×2 (04:45→14:24)
[2017-12-13] MEDS: CHLORDIAZEPOXIDE 25MG CAPSULE PO SCH ×2 (06:04→13:34)
[2017-12-13] MEDS: SUCRALFATE 1 G/10 ML UDC PO SCH ×2 (06:04→12:06)
[2017-12-13] MEDS: OMEPRAZOLE 20MG CAPSULE EXTENDED RELEASE PO SCH (06:04)
[2017-12-13 07:10] LABS: HEMATOCRIT. 23.1 % (42.0-52.0); HEMOGLOBIN. 7.9 g/dL (14.0-18.0); MEAN CORPUSCULAR HEMOGLOBIN 28.6 pg (28.0-32.0); MEAN CORPUSCULAR VOLUME 83.8 fL (80.0-94.0); MEAN PLATELET VOLUME 8.7 fl (7.4-10.4); RED BLOOD CELL COUNT 2.75 mill/uL (4.7-6.1); RED CELL DISTRIBUTION WIDTH 19.1 % (11.6-14.6)
[2017-12-13 07:13] LABS: CHLORIDE 108 mEq/L (98-107)
[2017-12-13 07:38] LABS: PLATELET 22 x1000/uL (130-400)
[2017-12-13 08:00] VITALS: BP 101/62
[2017-12-13] MEDS: FOLIC ACID 1MG TABLET PO SCH (08:51)
[2017-12-13] MEDS: DOCUSATE SODIUM 250MG CAPSULE PO SCH (08:51)
[2017-12-13] MEDS: MULTIVITAMINS,THER W-MINERALS TABLET PO SCH (08:51)
[2017-12-13] MEDS: POTASSIUM CHLORIDE 20MEQ TABLET SR PO SCH (08:51)
[2017-12-13] MEDS: THIAMINE HCL 100MG TABLET PO SCH (08:51)
[2017-12-13 12:00] VITALS: BP 98/57
[2017-12-13 12:52] LABS: PLATELET ESTIMATE MARKEDLY DECREASED
[2017-12-13 16:00] VITALS: BP 98/56
[2017-12-13] MEDS ORDERED: MAGNESIUM SULFATE 2 GM in DEXTROSE 5% WATER 50 ML IV NR (16:30)
[2017-12-13 17:48] VITALS: BP 98/56
== END 2017-12-13 18:26 | disposition home or self-care (01) | DRG 280 ==
LOC: ER 07:47 → 8WST 11:40 → EDBEDREQ 12:04 → EDBEDREQTM 12:04 → ENRESERV 13:47
PROVIDERS: ADMIT Internal Medicine Nephrology; ATTEND Internal Medicine Nephrology
PROC: 30233N1 Transfusion of Nonautologous Red Blood Cells into Peripheral Vein, Percutaneous Approach (ICD-10-PCS; principal; 2017-12-12)
DX: K70.30 Alcoholic cirrhosis of liver without ascites (principal); G92 Toxic encephalopathy; D61.818 Other pancytopenia; K72.90 Hepatic failure, unspecified without coma; E87.2 Acidosis; K76.6 Portal hypertension; E87.8 Other disorders of electrolyte and fluid balance, not elsewhere classified; I85.10 Secondary esophageal varices without bleeding; E44.1 Mild protein-calorie malnutrition; D72.825 Bandemia; E87.6 Hypokalemia; F10.229 Alcohol dependence with intoxication, unspecified; K21.9 Gastro-esophageal reflux disease without esophagitis; R16.1 Splenomegaly, not elsewhere classified; Y90.5 Blood alcohol level of 100-119 mg/100 ml; F15.10 Other stimulant abuse, uncomplicated; K29.20 Alcoholic gastritis without bleeding; Z87.11 Personal history of peptic ulcer disease; Z91.19 Patient's noncompliance with other medical treatment and regimen; Z88.6 Allergy status to analgesic agent; Z88.8 Allergy status to other drugs, medicaments and biological substances; Z68.1 Body mass index [BMI] 19.9 or less, adult; Z79.899 Other long term (current) drug therapy; Z71.41 Alcohol abuse counseling and surveillance of alcoholic; Z71.51 Drug abuse counseling and surveillance of drug abuser
CPT/HCPCS: 36415; 71045; 74176; 80048; 80053; 80305; 81003; 82270; 82550; 82553; 83605; 83690; 83735; 84484; 85014; 85018; 85025; 85610; 85730; 86850; 86900; 86920; 87040; 87086; 93005; 96361; 96365; 96366; 96375; 99291; C1893; G0482; J1442; J2270; J2405; J2543; J3370; J3475; J7030; J7050; J7060; P9016; Q0162

== ENCOUNTER 2017-12-15 03:56 | Emergency (ER) | payer SELFPAY ==
[~2017-12-15] VITALS: Ht 162.6 cm; Wt 70.0 kg
[2017-12-15 06:52] VITALS: BP 124/70
== END 2017-12-15 07:00 | disposition home or self-care (01) ==
LOC: ER 04:58
DX: L29.9 Pruritus, unspecified (principal); R51 Headache; K76.9 Liver disease, unspecified; F15.10 Other stimulant abuse, uncomplicated; Z87.11 Personal history of peptic ulcer disease; Z87.19 Personal history of other diseases of the digestive system; Z88.6 Allergy status to analgesic agent; Z79.899 Other long term (current) drug therapy
CPT/HCPCS: 99281

== ENCOUNTER 2017-12-18 00:55 | Emergency (ER) | payer SELFPAY ==
[~2017-12-18] VITALS: Ht 162.6 cm; Wt 70.0 kg
[2017-12-18] MEDS ORDERED: FAMOTIDINE 20MG TABLET PO ONE (03:45)
[2017-12-18] MEDS ORDERED: ACETAMINOPHEN 500MG TABLET PO ONE (03:45)
[2017-12-18] MEDS ORDERED: ONDANSETRON 4MG ODT PO ONE (03:45)
[2017-12-18 03:46] LABS: HEMOGLOBIN. 7.6 g/dL (14.0-18.0); MEAN CORPUSCULAR HEMOGLOBIN 27.9 pg (28.0-32.0); MEAN CORPUSCULAR VOLUME 84.2 fL (80.0-94.0); MEAN PLATELET VOLUME 9.5 fl (7.4-10.4); RED BLOOD CELL COUNT 2.73 mill/uL (4.7-6.1); RED CELL DISTRIBUTION WIDTH 20.5 % (11.6-14.6)
[2017-12-18 03:47] LABS: CHLORIDE 114 mEq/L (98-107)
[2017-12-18 03:50] LABS: INR 1.2; PROTHROMBIN TIME 11.9 sec (9.1-11.1)
[2017-12-18 04:01] LABS: CLARITY URINE CLEAR (CLEAR); COLOR URINE YELLOW (YELLOW); KETONES URINE NEGATIVE (NEGATIVE); LEUKOCYTE ESTERASE URINE NEGATIVE (NEGATIVE); NITRITE URINE NEGATIVE (NEGATIVE); OCCULT BLOOD URINE NEGATIVE (NEGATIVE); PH URINE 5.5 (4.5-8.0); PROTEIN URINE NEGATIVE (NEGATIVE); SPECIFIC GRAVITY URINE 1.016 (1.005-1.030)
[2017-12-18 04:40] LABS: NUCLEATED RED BLOOD CELLS 1 /100 WBC
[2017-12-18 04:41] LABS: PLATELET 31 x1000/uL (130-400); PLATELET ESTIMATE MARKEDLY DECREASED
[2017-12-18 06:06] VITALS: BP 112/71
== END 2017-12-18 06:10 | disposition home or self-care (01) ==
LOC: ER 00:55
DX: K70.9 Alcoholic liver disease, unspecified (principal); D61.818 Other pancytopenia; Z87.891 Personal history of nicotine dependence; Z88.6 Allergy status to analgesic agent; Z88.8 Allergy status to other drugs, medicaments and biological substances
CPT/HCPCS: 36415; 80053; 81003; 83690; 85025; 85610; 99284; G0482; Q0162; Z7610

== ENCOUNTER 2017-12-28 15:54 | Emergency (ER) | payer SELFPAY ==
[~2017-12-28] VITALS: Ht 172.7 cm; Wt 84.0 kg
[2017-12-28 18:47] LABS: CHLORIDE 112 mEq/L (98-107)
[2017-12-28 18:48] LABS: BASOPHILS % 0.8 % (0.0-2.0); EOSINOPHILS % 0.4 % (0.0-5.0); HEMATOCRIT. 28.5 % (42.0-52.0); HEMOGLOBIN. 9.1 g/dL (14.0-18.0); LYMPHOCYTES % 32.2 % (20.0-50.0); MEAN CORPUSCULAR HEMOGLOBIN 26.3 pg (28.0-32.0); MEAN CORPUSCULAR VOLUME 82.6 fL (80.0-94.0); MEAN PLATELET VOLUME 9.5 fl (7.4-10.4); MONOCYTES % 5.9 % (2.0-8.0); NEUTROPHILS % 60.7 % (40.0-76.0); PLATELET 52 x1000/uL (130-400); RED BLOOD CELL COUNT 3.45 mill/uL (4.7-6.1)
[2017-12-28 18:49] LABS: INR 1.2; PROTHROMBIN TIME 11.7 sec (9.1-11.1)
[2017-12-28] MEDS ORDERED: MORPHINE SULFATE 2 MG/ML CPJ (NOT FOR IM USE) IV SCH (19:00)
[2017-12-28] MEDS ORDERED: SODIUM CHLORIDE 0.9% 1,000 ML IV ONE (19:00)
[2017-12-28] MEDS ORDERED: ONDANSETRON HCL 4MG/2ML INJ IV SCH (19:00)
[2017-12-28 19:41] LABS: CLARITY URINE CLEAR (CLEAR); COLOR URINE YELLOW (YELLOW); KETONES URINE NEGATIVE (NEGATIVE); LEUKOCYTE ESTERASE URINE NEGATIVE (NEGATIVE); NITRITE URINE NEGATIVE (NEGATIVE); OCCULT BLOOD URINE NEGATIVE (NEGATIVE); PROTEIN URINE NEGATIVE (NEGATIVE); UROBILINOGEN URINE 0.2 E.U./dL (0.2-1.0)
[2017-12-28 20:38] LABS: PLATELET ESTIMATE MARKEDLY DECREASED
[2017-12-28] MEDS ORDERED: ONDANSETRON 4MG ODT PO ONE (21:15)
[2017-12-28 21:47] VITALS: BP 128/75
== END 2017-12-28 21:50 | disposition home or self-care (01) ==
LOC: ER 16:17
DX: K85.90 Acute pancreatitis without necrosis or infection, unspecified (principal); K29.20 Alcoholic gastritis without bleeding; D72.819 Decreased white blood cell count, unspecified; D64.9 Anemia, unspecified; D69.6 Thrombocytopenia, unspecified; F10.10 Alcohol abuse, uncomplicated; Y90.9 Presence of alcohol in blood, level not specified; Z88.6 Allergy status to analgesic agent; Z88.8 Allergy status to other drugs, medicaments and biological substances
CPT/HCPCS: 36415; 80053; 81003; 83690; 85025; 85610; 96361; 96374; 96375; 99284; J2270; J2405; J7030; Q0162; Z7610

== ENCOUNTER 2018-01-01 18:38 | Emergency (ER) | payer SELFPAY ==
[~2018-01-01] VITALS: Ht 162.6 cm; Wt 70.0 kg
[2018-01-01] MEDS ORDERED: MAGNESIUM/ALUMINUM HYDROXIDE/SIMETHICONE 30ML UDC PO STA (22:24)
[2018-01-01] MEDS ORDERED: VISCOUS LIDOCAINE 2% 15 ML UDC PO STA (22:24)
[2018-01-01] MEDS ORDERED: ONDANSETRON 4MG ODT PO ONE (22:30)
[2018-01-02 02:45] VITALS: BP 105/72
== END 2018-01-02 03:06 | disposition home or self-care (01) ==
LOC: ER 18:38
DX: K29.20 Alcoholic gastritis without bleeding (principal); F10.20 Alcohol dependence, uncomplicated; F41.1 Generalized anxiety disorder; K70.30 Alcoholic cirrhosis of liver without ascites; F15.10 Other stimulant abuse, uncomplicated; Z88.6 Allergy status to analgesic agent; Z88.8 Allergy status to other drugs, medicaments and biological substances; Z87.891 Personal history of nicotine dependence; Y90.9 Presence of alcohol in blood, level not specified; Z87.11 Personal history of peptic ulcer disease
CPT/HCPCS: 99284; Q0162

== ENCOUNTER 2018-01-02 22:22 | Emergency (ER) | payer SELFPAY ==
[~2018-01-02] VITALS: Ht 165.1 cm; Wt 56.0 kg
[2018-01-02] MEDS ORDERED: ONDANSETRON 4MG ODT PO STA (23:31)
[2018-01-02] MEDS ORDERED: MAGNESIUM/ALUMINUM HYDROXIDE/SIMETHICONE 30ML UDC PO STA (23:31)
[2018-01-02] MEDS ORDERED: FAMOTIDINE 20MG TABLET PO ONE (23:45)
[2018-01-03 01:58] VITALS: BP 128/70
== END 2018-01-03 02:00 | disposition home or self-care (01) ==
LOC: ER 23:17
DX: F10.229 Alcohol dependence with intoxication, unspecified (principal); F15.10 Other stimulant abuse, uncomplicated; M19.90 Unspecified osteoarthritis, unspecified site; K76.9 Liver disease, unspecified; R10.13 Epigastric pain; Z88.6 Allergy status to analgesic agent; Z88.8 Allergy status to other drugs, medicaments and biological substances; Z79.899 Other long term (current) drug therapy; Y90.9 Presence of alcohol in blood, level not specified
CPT/HCPCS: 99284; Q0162

== ENCOUNTER 2018-01-09 15:53 | Inpatient (IN) | payer SELFPAY ==
[~2018-01-09] VITALS: Ht 162.6 cm; Wt 70.3 kg
[2018-01-09] MEDS ORDERED: PANTOPRAZOLE SODIUM 40 MG/VIAL IV STA (16:53)
[2018-01-09] MEDS ORDERED: MAGNESIUM/ALUMINUM HYDROXIDE/SIMETHICONE 30ML UDC PO STA (16:53)
[2018-01-09] MEDS ORDERED: VISCOUS LIDOCAINE 2% 15 ML UDC PO STA (16:53)
[2018-01-09 17:18] LABS: CLARITY URINE CLEAR (CLEAR); COLOR URINE YELLOW (YELLOW); KETONES URINE NEGATIVE (NEGATIVE); LEUKOCYTE ESTERASE URINE NEGATIVE (NEGATIVE); NITRITE URINE NEGATIVE (NEGATIVE); OCCULT BLOOD URINE NEGATIVE (NEGATIVE); PH URINE 6.5 (4.5-8.0); PROTEIN URINE NEGATIVE (NEGATIVE); SPECIFIC GRAVITY URINE 1.004 (1.005-1.030); UROBILINOGEN URINE 0.2 E.U./dL (0.2-1.0)
[2018-01-09 17:21] LABS: HEMATOCRIT. 25.7 % (42.0-52.0); HEMOGLOBIN. 8.2 g/dL (14.0-18.0); MEAN CORPUSCULAR HEMOGLOBIN 25.5 pg (28.0-32.0); MEAN CORPUSCULAR VOLUME 79.5 fL (80.0-94.0); MEAN PLATELET VOLUME 8.6 fl (7.4-10.4); RED BLOOD CELL COUNT 3.23 mill/uL (4.7-6.1); RED CELL DISTRIBUTION WIDTH 22.5 % (11.6-14.6)
[2018-01-09 17:24] LABS: PLATELET 16 x1000/uL (130-400)
[2018-01-09 17:27] LABS: INR 1.3; PROTHROMBIN TIME 12.7 sec (9.1-11.1)
[2018-01-09 17:28] LABS: CHLORIDE 108 mEq/L (98-107)
[2018-01-09 17:48] LABS: PLATELET ESTIMATE MARKEDLY DECREASED
[2018-01-09] MEDS ORDERED: MORPHINE SULFATE 2 MG/ML CPJ (NOT FOR IM USE) IV ONE (19:45)
[2018-01-09 21:20] VITALS: BP 140/81
[2018-01-09] MEDS ORDERED: SODIUM CHLORIDE 0.9% 1,000 ML IV SCH (22:13)
[2018-01-09] MEDS ORDERED: DIPHENHYDRAMINE 50MG/ML VIAL IV PRN (22:15)
[2018-01-09] MEDS ORDERED: CLONIDINE 0.1MG TABLET PO PRN (22:15)
[2018-01-09] MEDS ORDERED: MAGNESIUM/ALUMINUM HYDROXIDE/SIMETHICONE 30ML UDC PO PRN (22:15)
[2018-01-09] MEDS ORDERED: LORAZEPAM 2MG/ML CPJ IV PRN (22:15)
[2018-01-09] MEDS ORDERED: ACETAMINOPHEN 325MG TABLET PO PRN (22:15)
[2018-01-10] VITALS (7 sets, daily range): BP systolic 110–140; BP diastolic 63–81
[2018-01-10] MEDS ORDERED: MVI, ADULT NO.1 10 ML, FOLIC ACID 1 MG, THIAMINE HCL 100 MG in SODIUM CHLORIDE 0.9% 1,0... IV NR ×4
[2018-01-10] MEDS: ONDANSETRON HCL 4MG/2ML INJ IV PRN ×3 (05:32→18:46)
[2018-01-10] MEDS ORDERED: PANTOPRAZOLE SODIUM 40 MG/VIAL IV SCH (09:00)
[2018-01-10 09:43] LABS: HEMATOCRIT. 25.6 % (42.0-52.0); HEMOGLOBIN. 8.2 g/dL (14.0-18.0); MEAN CORPUSCULAR HEMOGLOBIN 25.6 pg (28.0-32.0); MEAN CORPUSCULAR VOLUME 79.3 fL (80.0-94.0); MEAN PLATELET VOLUME 6.7 fl (7.4-10.4); RED BLOOD CELL COUNT 3.22 mill/uL (4.7-6.1); RED CELL DISTRIBUTION WIDTH 22.2 % (11.6-14.6)
[2018-01-10 10:07] LABS: CHLORIDE 108 mEq/L (98-107)
[2018-01-10 10:11] LABS: PLATELET 13 x1000/uL (130-400)
[2018-01-10 10:12] LABS: PHOSPHORUS 2.9 mg/dL (2.5-4.9)
[2018-01-10 11:33] LABS: PLATELET ESTIMATE MARKEDLY DECREASED
[2018-01-10 12:48] LABS: HEMATOCRIT 24.8 % (42.0-52.0); HEMOGLOBIN 7.9 g/dL (14.0-18.0)
[2018-01-10 19:25] LABS: HEMATOCRIT 25.1 % (42.0-52.0); HEMOGLOBIN 8.1 g/dL (14.0-18.0)
[2018-01-10 20:29] LABS: HEMATOCRIT. 25.4 % (42.0-52.0); HEMOGLOBIN. 8.1 g/dL (14.0-18.0); MEAN CORPUSCULAR HEMOGLOBIN 25.4 pg (28.0-32.0); MEAN CORPUSCULAR VOLUME 79.5 fL (80.0-94.0); MEAN PLATELET VOLUME 8.8 fl (7.4-10.4); RED BLOOD CELL COUNT 3.19 mill/uL (4.7-6.1); RED CELL DISTRIBUTION WIDTH 21.5 % (11.6-14.6)
[2018-01-10 20:36] LABS: PLATELET 11 x1000/uL (130-400)
[2018-01-10] MEDS: PANTOPRAZOLE SODIUM 40 MG/VIAL IV SCH (20:56)
[2018-01-10 21:25] LABS: PLATELET ESTIMATE MARKEDLY DECREASED
[2018-01-11] VITALS: BP 137/69
[2018-01-11 04:00] VITALS: BP 117/57
[2018-01-11] MEDS: ONDANSETRON HCL 4MG/2ML INJ IV PRN ×2 (05:01→10:35)
[2018-01-11 08:00] VITALS: BP 120/66
[2018-01-11] MEDS: PANTOPRAZOLE SODIUM 40 MG/VIAL IV SCH (08:44)
[2018-01-11] MEDS ORDERED: FOLIC ACID 1MG TABLET PO SCH (09:00)
[2018-01-11 09:54] LABS: HEMATOCRIT. 28.7 % (42.0-52.0); HEMOGLOBIN. 9.1 g/dL (14.0-18.0); MEAN CORPUSCULAR HEMOGLOBIN 25.2 pg (28.0-32.0); MEAN CORPUSCULAR VOLUME 79.9 fL (80.0-94.0); MEAN PLATELET VOLUME 8.4 fl (7.4-10.4); RED BLOOD CELL COUNT 3.59 mill/uL (4.7-6.1); RED CELL DISTRIBUTION WIDTH 22.2 % (11.6-14.6)
[2018-01-11 10:09] LABS: PLATELET 15 x1000/uL (130-400)
[2018-01-11 12:00] VITALS: BP 114/56
[2018-01-11 14:08] LABS: PLATELET ESTIMATE MARKEDLY DECREASED
[2018-01-11 14:52] VITALS: BP 114/56
== END 2018-01-11 16:00 | disposition home or self-care (01) | DRG 251 ==
LOC: ER 15:53 → 6EST 18:07 → ENRESERV 20:19 → EDBEDREQ 22:42
PROVIDERS: ADMIT Internal Medicine; ATTEND Internal Medicine
DX: R10.9 Unspecified abdominal pain (principal); D61.818 Other pancytopenia; D69.6 Thrombocytopenia, unspecified; K76.6 Portal hypertension; K70.30 Alcoholic cirrhosis of liver without ascites; M19.90 Unspecified osteoarthritis, unspecified site; D63.8 Anemia in other chronic diseases classified elsewhere; F10.21 Alcohol dependence, in remission; Z83.3 Family history of diabetes mellitus; Z87.11 Personal history of peptic ulcer disease; Z87.891 Personal history of nicotine dependence; Z88.4 Allergy status to anesthetic agent
CPT/HCPCS: 36415; 80048; 80053; 81003; 82962; 83690; 83735; 84100; 85014; 85018; 85025; 85610; 96374; 96375; 99285; C9113; J1200; J2270; J2405; J3411; J3490; J7030

== ENCOUNTER 2018-01-18 16:45 | Emergency (ER) | payer SELFPAY ==
[~2018-01-18] VITALS: Ht 162.6 cm; Wt 70.0 kg
[2018-01-18] MEDS ORDERED: ONDANSETRON HCL 4MG/2ML INJ IV STA (18:40)
[2018-01-18] MEDS ORDERED: FAMOTIDINE 20MG/2ML VIAL IV STA (18:40)
[2018-01-18] MEDS ORDERED: MORPHINE SULFATE 4 MG/ML CPJ (NOT FOR IM USE) IV STA (18:40)
[2018-01-18] MEDS ORDERED: MAGNESIUM/ALUMINUM HYDROXIDE/SIMETHICONE 30ML UDC PO STA (18:40)
[2018-01-18] MEDS ORDERED: SODIUM CHLORIDE 0.9% 1,000 ML IV ONE (18:40)
[2018-01-18 19:30] LABS: HEMATOCRIT. 27.4 % (42.0-52.0); HEMOGLOBIN. 8.8 g/dL (14.0-18.0); MEAN CORPUSCULAR HEMOGLOBIN 24.8 pg (28.0-32.0); MEAN CORPUSCULAR VOLUME 77.3 fL (80.0-94.0); MEAN PLATELET VOLUME 8.5 fl (7.4-10.4); RED BLOOD CELL COUNT 3.54 mill/uL (4.7-6.1); RED CELL DISTRIBUTION WIDTH 22.7 % (11.6-14.6)
[2018-01-18 19:35] LABS: CHLORIDE 108 mEq/L (98-107)
[2018-01-18 19:38] LABS: PLATELET 22 x1000/uL (130-400)
[2018-01-18 19:40] LABS: ETHANOL BLOOD 215 mg/dL
[2018-01-18 19:42] LABS: INR 1.2; PROTHROMBIN TIME 12.1 sec (9.1-11.1)
[2018-01-18 21:01] LABS: PLATELET ESTIMATE MARKEDL
[2018-01-18 22:58] LABS: CLARITY URINE CLEAR (CLEAR); COLOR URINE YELLOW (YELLOW); KETONES URINE NEGATIVE (NEGATIVE); LEUKOCYTE ESTERASE URINE NEGATIVE (NEGATIVE); NITRITE URINE NEGATIVE (NEGATIVE); OCCULT BLOOD URINE NEGATIVE (NEGATIVE); PH URINE 7.5 (4.5-8.0); PROTEIN URINE NEGATIVE (NEGATIVE); SPECIFIC GRAVITY URINE 1.017 (1.005-1.030)
[2018-01-18] MEDS ORDERED: KETOROLAC 30MG/ML VIAL IV ONE (23:00)
[2018-01-18 23:14] LABS: *AMPHETAMINES SCREEN URINE NEGATIVE (NEGATIVE); *BARBITURATES SCREEN URINE NEGATIVE (NEGATIVE); *BENZODIAZEPINES SCREEN URINE PRESUMTIVE POSITIVE (NEGATIVE); *COCAINE SCREEN URINE NEGATIVE (NEGATIVE); METHADONE URINE SCREEN NEGATIVE (NEGATIVE); OPIATES URINE SCREEN PRESUMTIVE POSITIVE (NEGATIVE); PHENCYCLIDINE URINE SCREEN NEGATIVE (NEGATIVE)
[2018-01-18 23:15] LABS: CANNABINOID URINE SCREEN NEGATIVE (NEGATIVE)
[2018-01-19 02:58] VITALS: BP 109/71
== END 2018-01-19 03:00 | disposition home or self-care (01) ==
LOC: ER 16:45
DX: K29.20 Alcoholic gastritis without bleeding (principal); R10.13 Epigastric pain; D69.6 Thrombocytopenia, unspecified; D64.9 Anemia, unspecified; F10.20 Alcohol dependence, uncomplicated; Y90.7 Blood alcohol level of 200-239 mg/100 ml; K76.9 Liver disease, unspecified; Z88.6 Allergy status to analgesic agent; Z79.899 Other long term (current) drug therapy
CPT/HCPCS: 36415; 71045; 80053; 80305; 81003; 83690; 84484; 85025; 85610; 93005; 96361; 96374; 96375; 99285; G0482; J1885; J2270; J2405; J3490; J7030

== ENCOUNTER 2018-01-22 15:46 | Inpatient (IN) | payer MEDICAID, OTHER ==
[~2018-01-22] VITALS: Ht 162.6 cm; Wt 70.0 kg
[2018-01-22] MEDS ORDERED: SODIUM CHLORIDE 0.9% 1,000 ML IV ONE ×2 (16:42→16:45)
[2018-01-22] MEDS ORDERED: ONDANSETRON HCL 4MG/2ML INJ IV ONE (16:45)
[2018-01-22 17:11] LABS: CLARITY URINE CLEAR (CLEAR); COLOR URINE YELLOW (YELLOW); KETONES URINE NEGATIVE (NEGATIVE); LEUKOCYTE ESTERASE URINE NEGATIVE (NEGATIVE); NITRITE URINE NEGATIVE (NEGATIVE); OCCULT BLOOD URINE NEGATIVE (NEGATIVE); PH URINE 5.5 (4.5-8.0); PROTEIN URINE NEGATIVE (NEGATIVE); UROBILINOGEN URINE 0.2 E.U./dL (0.2-1.0)
[2018-01-22 17:21] LABS: *AMPHETAMINES SCREEN URINE NEGATIVE (NEGATIVE); *BARBITURATES SCREEN URINE NEGATIVE (NEGATIVE); *BENZODIAZEPINES SCREEN URINE NEGATIVE (NEGATIVE); *COCAINE SCREEN URINE NEGATIVE (NEGATIVE); METHADONE URINE SCREEN NEGATIVE (NEGATIVE); OPIATES URINE SCREEN NEGATIVE (NEGATIVE)
[2018-01-22 17:22] LABS: CANNABINOID URINE SCREEN NEGATIVE (NEGATIVE); PHENCYCLIDINE URINE SCREEN NEGATIVE (NEGATIVE)
[2018-01-22 17:54] LABS: CHLORIDE 110 mEq/L (98-107); INR 1.2; PROTHROMBIN TIME 11.9 sec (9.1-11.1)
[2018-01-22 18:06] LABS: ETHANOL BLOOD 358 mg/dL; HEMATOCRIT. 27.7 % (42.0-52.0); HEMOGLOBIN. 8.7 g/dL (14.0-18.0); MEAN CORPUSCULAR HEMOGLOBIN 24.5 pg (28.0-32.0); MEAN PLATELET VOLUME 8.1 fl (7.4-10.4); RED BLOOD CELL COUNT 3.54 mill/uL (4.7-6.1); RED CELL DISTRIBUTION WIDTH 23.3 % (11.6-14.6)
[2018-01-22 18:12] LABS: PLATELET 20 x1000/uL (130-400)
[2018-01-22] MEDS ORDERED: PANTOPRAZOLE SODIUM 40 MG/VIAL IV ONE (18:45)
[2018-01-22 19:17] LABS: PLATELET ESTIMATE MARKEDLY DECREASED
[2018-01-22] MEDS ORDERED: HYDROCODONE/ACETAMINOPHEN 5/325MG TABLET PO PRN (19:45)
[2018-01-22] MEDS ORDERED: GUAIFENESIN 200MG/10ML SUGAR FREE UDC PO PRN (19:45)
[2018-01-22] MEDS ORDERED: IPRATROPIUM/ALBUTEROL 0.5-3(2.5)MG/3ML NEB INH PRN (19:45)
[2018-01-22] MEDS ORDERED: LORAZEPAM 2MG/ML CPJ IV PRN (19:45)
[2018-01-22] MEDS ORDERED: MAGNESIUM/ALUMINUM HYDROXIDE/SIMETHICONE 30ML UDC PO PRN (19:45)
[2018-01-22] MEDS ORDERED: ACETAMINOPHEN 325MG TABLET PO PRN (19:45)
[2018-01-22] MEDS ORDERED: DIPHENHYDRAMINE 50MG/ML VIAL IV PRN (19:45)
[2018-01-22] MEDS ORDERED: CLONIDINE 0.1MG TABLET PO PRN (19:45)
[2018-01-22] MEDS ORDERED: MVI, ADULT NO.1 10 ML, FOLIC ACID 1 MG, THIAMINE HCL 100 MG in SODIUM CHLORIDE 0.9% 1,0... IV SCH ×4 (21:00)
[2018-01-22] MEDS ORDERED: CEFTRIAXONE 1 G PREMIX 50 ML IV SCH (21:15)
[2018-01-22 23:15] VITALS: BP 134/69
[2018-01-23] MEDS ORDERED: NA PHOS,M-B/NA PHOS,DI-BA ENEMA 118ML PR PRN (00:24)
[2018-01-23 00:29] VITALS: BP 134/69
[2018-01-23] MEDS: CEFTRIAXONE 1 G PREMIX 50 ML IV SCH (01:43)
[2018-01-23] MEDS: MORPHINE SULFATE 4 MG/ML CPJ (NOT FOR IM USE) IV PRN ×4 (01:45→22:45)
[2018-01-23] MEDS: ONDANSETRON HCL 4MG/2ML INJ IV PRN ×2 (03:39→11:26)
[2018-01-23 04:00] VITALS: BP 106/58
[2018-01-23 07:03] LABS: HEMATOCRIT. 24.4 % (42.0-52.0); HEMOGLOBIN. 7.8 g/dL (14.0-18.0); MEAN CORPUSCULAR HEMOGLOBIN 24.9 pg (28.0-32.0); MEAN CORPUSCULAR VOLUME 77.8 fL (80.0-94.0); MEAN PLATELET VOLUME 8.2 fl (7.4-10.4); RED BLOOD CELL COUNT 3.14 mill/uL (4.7-6.1)
[2018-01-23 07:15] LABS: PLATELET 16 x1000/uL (130-400)
[2018-01-23 07:35] LABS: CHLORIDE 107 mEq/L (98-107)
[2018-01-23 08:00] VITALS: BP 118/62
[2018-01-23] MEDS ORDERED: POTASSIUM CHLORIDE 20MEQ TABLET SR PO NR (08:45)
[2018-01-23] MEDS: PANTOPRAZOLE SODIUM 40 MG/VIAL IV SCH (08:48)
[2018-01-23 12:00] VITALS: BP 123/69
[2018-01-23 13:12] LABS: PLATELET ESTIMATE MARKEDLY DECREASED
[2018-01-23 16:00] VITALS: BP 114/55
[2018-01-23 20:00] VITALS: BP 121/58
[2018-01-24] VITALS (9 sets, daily range): BP systolic 110–142; BP diastolic 64–79
[2018-01-24] MEDS: CEFTRIAXONE 1 G PREMIX 50 ML IV SCH (01:31)
[2018-01-24 06:33] LABS: HEMATOCRIT 26.1 % (42.0-52.0); HEMOGLOBIN 8.4 g/dL (14.0-18.0); MEAN CORPUSCULAR HEMOGLOBIN 24.9 pg (28.0-32.0); RED BLOOD CELL COUNT 3.38 mill/uL (4.7-6.1); RED CELL DISTRIBUTION WIDTH 22.6 % (11.6-14.6)
[2018-01-24 07:04] LABS: PLATELET 13 x1000/uL (130-400)
[2018-01-24 07:09] LABS: CHLORIDE 101 mEq/L (98-107)
[2018-01-24] MEDS ORDERED: POTASSIUM CHLORIDE 20MEQ TABLET SR PO SCH (08:30)
[2018-01-24] MEDS: PANTOPRAZOLE SODIUM 40 MG/VIAL IV SCH (09:29)
== END 2018-01-24 23:09 | disposition home or self-care (01) | DRG 280 ==
LOC: ER 15:46 → 6EST 19:24 → ENRESERV 19:38 → 6EST 01-23 00:12
PROVIDERS: ADMIT Internal Medicine; ATTEND Internal Medicine
PROC: 30233R1 Transfusion of Nonautologous Platelets into Peripheral Vein, Percutaneous Approach (ICD-10-PCS; principal; 2018-01-24)
DX: K70.30 Alcoholic cirrhosis of liver without ascites (principal); D61.818 Other pancytopenia; E87.8 Other disorders of electrolyte and fluid balance, not elsewhere classified; E83.51 Hypocalcemia; R10.9 Unspecified abdominal pain; F10.10 Alcohol abuse, uncomplicated; M19.90 Unspecified osteoarthritis, unspecified site; M54.2 Cervicalgia; Z88.6 Allergy status to analgesic agent; Z79.899 Other long term (current) drug therapy; Z91.81 History of falling
CPT/HCPCS: 36415; 70450; 71045; 72125; 74176; 80048; 80053; 80305; 81003; 83605; 83690; 84132; 84484; 85025; 85027; 85610; 86850; 86900; 86945; 87040; 93005; 96361; 96374; 96375; 99285; C1893; C9113; G0482; J0696; J2060; J2270; J2405; J3411; J3490; J7030; J7040; J7050; P9034

== ENCOUNTER 2018-02-02 16:09 | Emergency (ER) | payer MEDICAID ==
[~2018-02-02] VITALS: Ht 170.2 cm; Wt 80.0 kg
[~2018-02-02 16:09] MED LIST changes: -DOCU-138 PO
[2018-02-02 17:38] LABS: BASOPHILS % 1.4 % (0.0-2.0); EOSINOPHILS % 0.2 % (0.0-5.0); HEMATOCRIT. 29.1 % (42.0-52.0); HEMOGLOBIN. 9.3 g/dL (14.0-18.0); LYMPHOCYTES % 20.9 % (20.0-50.0); MEAN CORPUSCULAR HEMOGLOBIN 24.3 pg (28.0-32.0); MEAN CORPUSCULAR VOLUME 76.3 fL (80.0-94.0); MEAN PLATELET VOLUME 8.3 fl (7.4-10.4); MONOCYTES % 8.1 % (2.0-8.0); NEUTROPHILS % 69.4 % (40.0-76.0); RED BLOOD CELL COUNT 3.81 mill/uL (4.7-6.1); RED CELL DISTRIBUTION WIDTH 23.8 % (11.6-14.6)
[2018-02-02 17:47] LABS: CHLORIDE 107 mEq/L (98-107); INR 1.2; PROTHROMBIN TIME 12.2 sec (9.1-11.1)
[2018-02-02 17:54] LABS: PLATELET 32 x1000/uL (130-400)
[2018-02-02 18:13] LABS: CLARITY URINE CLEAR (CLEAR); KETONES URINE NEGATIVE (NEGATIVE); LEUKOCYTE ESTERASE URINE NEGATIVE (NEGATIVE); NITRITE URINE NEGATIVE (NEGATIVE); OCCULT BLOOD URINE NEGATIVE (NEGATIVE); PROTEIN URINE TRACE (NEGATIVE); SPECIFIC GRAVITY URINE 1.013 (1.005-1.030)
[2018-02-02 18:19] LABS: COLOR URINE YELLOW (YELLOW)
[2018-02-02 18:25] LABS: ETHANOL BLOOD 464 mg/dL
[2018-02-02 18:34] LABS: *AMPHETAMINES SCREEN URINE NEGATIVE (NEGATIVE); *BARBITURATES SCREEN URINE NEGATIVE (NEGATIVE); *BENZODIAZEPINES SCREEN URINE NEGATIVE (NEGATIVE); *COCAINE SCREEN URINE NEGATIVE (NEGATIVE); CANNABINOID URINE SCREEN NEGATIVE (NEGATIVE); METHADONE URINE SCREEN NEGATIVE (NEGATIVE); OPIATES URINE SCREEN NEGATIVE (NEGATIVE); PHENCYCLIDINE URINE SCREEN NEGATIVE (NEGATIVE)
[2018-02-02] MEDS ORDERED: IBUPROFEN 600MG TABLET PO ONE (22:00)
[2018-02-02] MEDS ORDERED: ONDANSETRON HCL 4MG/2ML INJ IV STA (23:25)
[2018-02-02] MEDS ORDERED: MORPHINE SULFATE 4 MG/ML CPJ (NOT FOR IM USE) IV STA (23:25)
[2018-02-03] MEDS ORDERED: ONDANSETRON HCL 4MG/2ML INJ IV STA (02:30)
[2018-02-03 03:28] VITALS: BP 107/55
[2018-02-04] MEDS ORDERED: IOHEXOL-300 100 ML BOTTLE ONE (14:50)
== END 2018-02-03 03:30 | disposition home or self-care (01) ==
LOC: ER 16:09
DX: D69.6 Thrombocytopenia, unspecified (principal); R44.0 Auditory hallucinations; F10.129 Alcohol abuse with intoxication, unspecified; Y90.8 Blood alcohol level of 240 mg/100 ml or more
CPT/HCPCS: 36415; 80053; 80305; 80307; 80329; 81003; 83690; 85025; 85610; 96374; 96375; 96376; 99284; G0482; J2270; J2405; J7030; Q9967; Z7610

== ENCOUNTER 2018-02-03 14:39 | Emergency (ER) | payer MEDICAID ==
[~2018-02-03] VITALS: Ht 165.1 cm; Wt 68.0 kg
[2018-02-03] MEDS ORDERED: SODIUM CHLORIDE 0.9% 1,000 ML IV ONE (17:15)
[2018-02-03 18:56] LABS: HEMOGLOBIN. 8.9 g/dL (14.0-18.0); MEAN CORPUSCULAR HEMOGLOBIN 24.2 pg (28.0-32.0); MEAN CORPUSCULAR VOLUME 76.2 fL (80.0-94.0); MEAN PLATELET VOLUME 8.8 fl (7.4-10.4); RED BLOOD CELL COUNT 3.67 mill/uL (4.7-6.1); RED CELL DISTRIBUTION WIDTH 23.8 % (11.6-14.6)
[2018-02-03 19:00] LABS: CHLORIDE 103 mEq/L (98-107)
[2018-02-03 19:04] LABS: ETHANOL BLOOD 283 mg/dL
[2018-02-03 19:09] LABS: INR 1.3; PROTHROMBIN TIME 12.8 sec (9.1-11.1)
[2018-02-03 19:14] LABS: PLATELET 25 x1000/uL (130-400)
[2018-02-03 20:19] LABS: PLATELET ESTIMATE MARKEDLY DECREASED
[2018-02-03 21:01] VITALS: BP 110/68
== END 2018-02-03 21:02 | disposition home or self-care (01) ==
LOC: ER 15:17
DX: S09.8XXA Other specified injuries of head, initial encounter (principal); S39.81XA Other specified injuries of abdomen, initial encounter; M25.561 Pain in right knee; F10.229 Alcohol dependence with intoxication, unspecified; Y90.8 Blood alcohol level of 240 mg/100 ml or more; K70.30 Alcoholic cirrhosis of liver without ascites; W01.198A Fall on same level from slipping, tripping and stumbling with subsequent striking against other object, initial encounter; Y93.89 Activity, other specified; Y92.89 Other specified places as the place of occurrence of the external cause
CPT/HCPCS: 36415; 70450; 71045; 72125; 72170; 74177; 80053; 82962; 83690; 85025; 85610; 86850; 86900; 86901; 96360; 99285; G0482; J7030

== ENCOUNTER 2018-02-09 11:32 | Inpatient (IN) | payer MEDICAID, OTHER ==
[~2018-02-09] VITALS: Ht 162.6 cm; Wt 69.9 kg
[2018-02-09] MEDS ORDERED: MORPHINE SULFATE 4 MG/ML CPJ (NOT FOR IM USE) IV STA (11:47)
[2018-02-09] MEDS ORDERED: ONDANSETRON HCL 4MG/2ML INJ IV STA (11:47)
[2018-02-09] MEDS ORDERED: SODIUM CHLORIDE 0.9% 1,000 ML IV ONE (11:47)
[2018-02-09 12:42] LABS: HEMATOCRIT. 28.2 % (42.0-52.0); HEMOGLOBIN. 8.8 g/dL (14.0-18.0); MEAN CORPUSCULAR HEMOGLOBIN 24.2 pg (28.0-32.0); MEAN CORPUSCULAR VOLUME 77.5 fL (80.0-94.0); MEAN PLATELET VOLUME 8.2 fl (7.4-10.4); RED BLOOD CELL COUNT 3.64 mill/uL (4.7-6.1); RED CELL DISTRIBUTION WIDTH 24.5 % (11.6-14.6)
[2018-02-09 12:45] LABS: PLATELET 18 x1000/uL (130-400)
[2018-02-09 12:46] LABS: CHLORIDE 105 mEq/L (98-107)
[2018-02-09 12:48] LABS: INR 1.3; PARTIAL THROMBOPLASTIN TIME 32.1 sec (23.4-31.0); PROTHROMBIN TIME 12.7 sec (9.1-11.1)
[2018-02-09 13:20] LABS: ETHANOL BLOOD 449 mg/dL
[2018-02-09 13:52] LABS: PLATELET ESTIMATE MARKEDLY DECREASED
[2018-02-09 16:15] LABS: CLARITY URINE CLEAR (CLEAR); COLOR URINE YELLOW (YELLOW); KETONES URINE NEGATIVE (NEGATIVE); LEUKOCYTE ESTERASE URINE NEGATIVE (NEGATIVE); NITRITE URINE NEGATIVE (NEGATIVE); OCCULT BLOOD URINE NEGATIVE (NEGATIVE); PROTEIN URINE NEGATIVE (NEGATIVE); SPECIFIC GRAVITY URINE 1.004 (1.005-1.030); UROBILINOGEN URINE 0.2 E.U./dL (0.2-1.0)
[2018-02-09 16:19] LABS: METHADONE URINE SCREEN NEGATIVE (NEGATIVE); OPIATES URINE SCREEN PRESUMTIVE POSITIVE (NEGATIVE); PHENCYCLIDINE URINE SCREEN NEGATIVE (NEGATIVE)
[2018-02-09 16:20] LABS: *AMPHETAMINES SCREEN URINE NEGATIVE (NEGATIVE); *BARBITURATES SCREEN URINE NEGATIVE (NEGATIVE); *BENZODIAZEPINES SCREEN URINE NEGATIVE (NEGATIVE); *COCAINE SCREEN URINE NEGATIVE (NEGATIVE); CANNABINOID URINE SCREEN NEGATIVE (NEGATIVE)
[2018-02-09] MEDS ORDERED: DOCUSATE SODIUM 100MG CAPSULE PO PRN (17:00)
[2018-02-09] MEDS ORDERED: IPRATROPIUM/ALBUTEROL 0.5-3(2.5)MG/3ML NEB INH PRN (17:00)
[2018-02-09] MEDS ORDERED: DIPHENHYDRAMINE 50MG/ML VIAL IV PRN (17:00)
[2018-02-09] MEDS ORDERED: MAGNESIUM/ALUMINUM HYDROXIDE/SIMETHICONE 30ML UDC PO PRN (17:00)
[2018-02-09] MEDS ORDERED: HYDROCODONE/ACETAMINOPHEN 10/325MG TABLET PO PRN (17:00)
[2018-02-09] MEDS ORDERED: NA PHOS,M-B/NA PHOS,DI-BA ENEMA 118ML PR PRN (17:00)
[2018-02-09] MEDS ORDERED: LORAZEPAM 2MG/ML CPJ IV PRN (17:00)
[2018-02-09] MEDS ORDERED: GUAIFENESIN 200MG/10ML SUGAR FREE UDC PO PRN (17:00)
[2018-02-09] MEDS ORDERED: CLONIDINE 0.1MG TABLET PO PRN (17:00)
[2018-02-09 17:30] VITALS: BP 133/87
[2018-02-09 20:00] VITALS: BP 100/56
[2018-02-09] MEDS: SODIUM CHLORIDE 0.45% 1,000 ML IV SCH (20:06)
[2018-02-09] MEDS: MORPHINE SULFATE 4 MG/ML CPJ (NOT FOR IM USE) IV PRN (20:14)
[2018-02-09 20:57] LABS: CHLORIDE 108 mEq/L (98-107)
[2018-02-10] VITALS: BP 101/52
[2018-02-10 04:00] VITALS: BP 104/57
[2018-02-10] MEDS: MORPHINE SULFATE 4 MG/ML CPJ (NOT FOR IM USE) IV PRN ×3 (04:59→19:34)
[2018-02-10] MEDS: ONDANSETRON HCL 4MG/2ML INJ IV PRN ×3 (06:13→19:33)
[2018-02-10 07:23] LABS: BASOPHILS % 0.9 % (0.0-2.0); EOSINOPHILS % 0.1 % (0.0-5.0); HEMATOCRIT. 28.3 % (42.0-52.0); HEMOGLOBIN. 8.9 g/dL (14.0-18.0); LYMPHOCYTES % 15.8 % (20.0-50.0); MEAN CORPUSCULAR HEMOGLOBIN 24.5 pg (28.0-32.0); MEAN CORPUSCULAR VOLUME 78.3 fL (80.0-94.0); MEAN PLATELET VOLUME 8.2 fl (7.4-10.4); MONOCYTES % 7.1 % (2.0-8.0); NEUTROPHILS % 76.1 % (40.0-76.0); RED BLOOD CELL COUNT 3.62 mill/uL (4.7-6.1); RED CELL DISTRIBUTION WIDTH 24.9 % (11.6-14.6)
[2018-02-10 07:53] LABS: PLATELET 15 x1000/uL (130-400)
[2018-02-10 08:00] VITALS: BP 116/65
[2018-02-10 08:40] LABS: CHLORIDE 105 mEq/L (98-107)
[2018-02-10 08:48] LABS: HDL CHOLESTEROL 56 mg/dL (40-59); LDL CHOLESTEROL 52 mg/dL (5-100)
[2018-02-10 12:00] VITALS: BP 109/70
[2018-02-10] MEDS: SODIUM CHLORIDE 0.45% 1,000 ML IV SCH (13:30)
[2018-02-10 16:00] VITALS: BP 120/73
[2018-02-10 20:00] VITALS: BP 125/54
[2018-02-11] VITALS: BP 123/70
[2018-02-11] MEDS: MORPHINE SULFATE 4 MG/ML CPJ (NOT FOR IM USE) IV PRN ×2 (02:25→08:36)
[2018-02-11] MEDS: ONDANSETRON HCL 4MG/2ML INJ IV PRN (02:25)
[2018-02-11 04:00] VITALS: BP 116/59
[2018-02-11 08:00] VITALS: BP 144/85
[2018-02-11] MEDS: SODIUM CHLORIDE 0.45% 1,000 ML IV SCH (08:37)
[2018-02-11 10:20] VITALS: BP 144/85
== END 2018-02-11 11:15 | disposition home or self-care (01) | DRG 241 ==
LOC: ER 11:32 → EDBEDREQ 13:15 → 6EST 13:20 → EDBEDREQTM 13:22 → EDBEDREQ 13:22 → ENRESERV 14:55 → 6EST 16:56
PROVIDERS: ADMIT Internal Medicine; ATTEND Internal Medicine
DX: K27.9 Peptic ulcer, site unspecified, unspecified as acute or chronic, without hemorrhage or perforation (principal); D61.818 Other pancytopenia; F10.20 Alcohol dependence, uncomplicated; F41.9 Anxiety disorder, unspecified; K76.9 Liver disease, unspecified; Z87.11 Personal history of peptic ulcer disease; Z88.6 Allergy status to analgesic agent; Z79.899 Other long term (current) drug therapy; I12.9 Hypertensive chronic kidney disease with stage 1 through stage 4 chronic kidney disease, or unspecified chronic kidney disease; N18.9 Chronic kidney disease, unspecified
CPT/HCPCS: 36415; 80048; 80061; 80305; 86850; 86900; 96361; 96374; 96375; 99291; C1893; G0482; J2060; J2270; J2405; J7030

== ENCOUNTER 2020-01-14 21:10 | Emergency (ER) | payer SELFPAY ==
[~2020-01-14] VITALS: Ht 165.1 cm; Wt 59.0 kg
[2020-01-14 23:05] VITALS: BP 117/78
== END 2020-01-14 23:12 | disposition home or self-care (01) ==
LOC: ER 21:10
DX: F10.129 Alcohol abuse with intoxication, unspecified (principal); Y90.9 Presence of alcohol in blood, level not specified; I12.9 Hypertensive chronic kidney disease with stage 1 through stage 4 chronic kidney disease, or unspecified chronic kidney disease; N18.9 Chronic kidney disease, unspecified; R56.9 Unspecified convulsions; Z87.11 Personal history of peptic ulcer disease
CPT/HCPCS: 93005; 99283

== ENCOUNTER 2020-02-05 08:52 | Inpatient (IN) | payer MEDICAID ==
[~2020-02-05] VITALS: Ht 162.6 cm; Wt 73.0 kg
[2020-02-05] MEDS ORDERED: SODIUM CHLORIDE 0.9% 1,000 ML IV ONE (09:00)
[2020-02-05] MEDS ORDERED: LEVETIRACETAM 1000MG/100ML 100 ML IV ONE (09:00)
[2020-02-05 09:46] LABS: CHLORIDE 105 mEq/L (98-107)
[2020-02-05 09:51] LABS: ETHANOL BLOOD < 10 mg/dL
[2020-02-05 09:55] LABS: CREATINE KINASE 284 IU/L (39-308)
[2020-02-05] MEDS ORDERED: LORAZEPAM 2MG/ML CPJ IV ONE (10:45)
[2020-02-05 10:49] LABS: CLARITY URINE CLEAR (CLEAR); COLOR URINE YELLOW (YELLOW); KETONES URINE NEGATIVE (NEGATIVE); LEUKOCYTE ESTERASE URINE NEGATIVE (NEGATIVE); NITRITE URINE NEGATIVE (NEGATIVE); OCCULT BLOOD URINE NEGATIVE (NEGATIVE); PH URINE 5.5 (4.5-8.0); PROTEIN URINE 2+ (NEGATIVE); UROBILINOGEN URINE 0.2 E.U./dL (0.2-1.0)
[2020-02-05 11:10] LABS: *AMPHETAMINES SCREEN URINE NEGATIVE (NEGATIVE); *BARBITURATES SCREEN URINE NEGATIVE (NEGATIVE)
[2020-02-05 11:11] LABS: *BENZODIAZEPINES SCREEN URINE NEGATIVE (NEGATIVE); *COCAINE SCREEN URINE NEGATIVE (NEGATIVE); CANNABINOID URINE SCREEN NEGATIVE (NEGATIVE); METHADONE URINE SCREEN NEGATIVE (NEGATIVE); OPIATES URINE SCREEN NEGATIVE (NEGATIVE); PHENCYCLIDINE URINE SCREEN NEGATIVE (NEGATIVE)
[2020-02-05 11:37] LABS: BASOPHILS % 0.7 % (0.0-2.0); EOSINOPHILS % 0.5 % (0.0-5.0); HEMATOCRIT. 38.8 % (42.0-52.0); HEMOGLOBIN. 12.7 g/dL (14.0-18.0); LYMPHOCYTES % 15.7 % (20.0-50.0); MEAN CORPUSCULAR HEMOGLOBIN 28.8 pg (28.0-32.0); MEAN CORPUSCULAR VOLUME 87.6 fL (80.0-94.0); MEAN PLATELET VOLUME 8.1 fl (7.4-10.4); MONOCYTES % 9.6 % (2.0-8.0); NEUTROPHILS % 73.5 % (40.0-76.0); PLATELET 233 x1000/uL (130-400); RED BLOOD CELL COUNT 4.43 mill/uL (4.7-6.1); RED CELL DISTRIBUTION WIDTH 16.8 % (11.6-14.6)
[2020-02-05 15:00] VITALS: BP 134/84
== END 2020-02-05 15:15 | disposition left against medical advice (07) | DRG 53 ==
LOC: ER 08:52 → 8WST 12:27 → EDBEDREQ 12:31 → ENRESERV 14:46
PROVIDERS: ADMIT Internal Medicine; ATTEND Internal Medicine
DX: G40.89 Other seizures (principal); S60.512A Abrasion of left hand, initial encounter; X58.XXXA Exposure to other specified factors, initial encounter; F10.20 Alcohol dependence, uncomplicated; F10.239 Alcohol dependence with withdrawal, unspecified; Y90.9 Presence of alcohol in blood, level not specified; Z59.0 Homelessness; Z82.49 Family history of ischemic heart disease and other diseases of the circulatory system; Z88.8 Allergy status to other drugs, medicaments and biological substances; Z79.899 Other long term (current) drug therapy; Y93.89 Activity, other specified; Y92.89 Other specified places as the place of occurrence of the external cause; Y99.8 Other external cause status
CPT/HCPCS: 36415; 71045; 80053; 80305; 80320; 81003; 82550; 85025; 93005; 99291; J1953; J2060; J7030; G0480

== ENCOUNTER 2020-03-07 21:47 | Emergency (ER) | payer MEDICAID ==
[~2020-03-07] VITALS: Ht 170.2 cm; Wt 73.0 kg
[2020-03-07 21:49] VITALS: BP 125/80
== END 2020-03-07 22:30 | disposition left against medical advice (07) ==
LOC: ER 21:47
DX: F10.229 Alcohol dependence with intoxication, unspecified (principal); G40.909 Epilepsy, unspecified, not intractable, without status epilepticus; Y90.9 Presence of alcohol in blood, level not specified; Z88.6 Allergy status to analgesic agent
CPT/HCPCS: 93005; 99283

== ENCOUNTER 2020-03-27 17:28 | Emergency (ER) | payer MEDICAID ==
[~2020-03-27] VITALS: Ht 167.6 cm; Wt 61.0 kg
[2020-03-27 17:29] VITALS: BP 138/72
== END 2020-03-27 20:23 | disposition left against medical advice (07) ==
LOC: ER 17:28
DX: R41.82 Altered mental status, unspecified (principal); Z53.21 Procedure and treatment not carried out due to patient leaving prior to being seen by health care provider

== ENCOUNTER 2020-04-12 09:38 | Emergency (ER) | payer MEDICAID ==
[~2020-04-12] VITALS: Ht 165.1 cm; Wt 73.0 kg
[2020-04-12] MEDS ORDERED: LEVETIRACETAM 1000MG PREMIX 100 ML IV ONE (11:00)
[2020-04-12 12:25] LABS: BASOPHILS % 0.6 % (0.0-2.0); EOSINOPHILS % 0.8 % (0.0-5.0); HEMATOCRIT. 37.9 % (42.0-52.0); HEMOGLOBIN. 12.8 g/dL (14.0-18.0); LYMPHOCYTES % 15.7 % (20.0-50.0); MEAN CORPUSCULAR HEMOGLOBIN 29.2 pg (28.0-32.0); MEAN CORPUSCULAR VOLUME 86.5 fL (80.0-94.0); MEAN PLATELET VOLUME 8.8 fl (7.4-10.4); MONOCYTES % 10.5 % (2.0-8.0); NEUTROPHILS % 72.4 % (40.0-76.0); PLATELET 195 x1000/uL (130-400); RED BLOOD CELL COUNT 4.38 mill/uL (4.7-6.1); RED CELL DISTRIBUTION WIDTH 15.3 % (11.6-14.6)
[2020-04-12 12:32] LABS: CHLORIDE 106 mEq/L (98-107)
[2020-04-12 12:39] LABS: ETHANOL BLOOD < 10 mg/dL
[2020-04-12 13:50] VITALS: BP 125/71
[2020-04-12 15:07] LABS: CLARITY URINE CLEAR (CLEAR); COLOR URINE YELLOW (YELLOW); KETONES URINE NEGATIVE (NEGATIVE); LEUKOCYTE ESTERASE URINE NEGATIVE (NEGATIVE); NITRITE URINE NEGATIVE (NEGATIVE); OCCULT BLOOD URINE NEGATIVE (NEGATIVE); PROTEIN URINE 1+ (NEGATIVE); SPECIFIC GRAVITY URINE 1.013 (1.005-1.030); UROBILINOGEN URINE 0.2 E.U./dL (0.2-1.0)
[2020-04-12 15:41] LABS: *AMPHETAMINES SCREEN URINE NEGATIVE (NEGATIVE); *BARBITURATES SCREEN URINE NEGATIVE (NEGATIVE); *BENZODIAZEPINES SCREEN URINE NEGATIVE (NEGATIVE); *COCAINE SCREEN URINE NEGATIVE (NEGATIVE); METHADONE URINE SCREEN NEGATIVE (NEGATIVE); OPIATES URINE SCREEN NEGATIVE (NEGATIVE)
[2020-04-12 15:42] LABS: CANNABINOID URINE SCREEN NEGATIVE (NEGATIVE); PHENCYCLIDINE URINE SCREEN NEGATIVE (NEGATIVE)
== END 2020-04-12 13:50 | disposition home or self-care (01) ==
LOC: ER 09:38
DX: R56.9 Unspecified convulsions (principal)
CPT/HCPCS: 36415; 80053; 80305; 80320; 81003; 85025; 93005; 96374; 99285; J1953; G0480

== ENCOUNTER 2020-12-08 08:58 | Emergency (ER) | payer MEDICAID ==
[~2020-12-08] VITALS: Ht 172.7 cm; Wt 73.0 kg
[~2020-12-08 08:58] MED LIST changes: -PANT40TA4 PO; +PANT40TA51 PO
[2020-12-08] MEDS ORDERED: LORAZEPAM 2MG/ML CPJ IV ONE (09:30)
[2020-12-08] MEDS ORDERED: LEVETIRACETAM 1000MG PREMIX 100 ML IV ONE (09:30)
[2020-12-08 10:07] LABS: BASOPHILS % 0.9 % (0.0-2.0); EOSINOPHILS % 1.1 % (0.0-5.0); HEMATOCRIT. 36.7 % (42.0-52.0); HEMOGLOBIN. 12.5 g/dL (14.0-18.0); LYMPHOCYTES % 25.2 % (20.0-50.0); MEAN CORPUSCULAR HEMOGLOBIN 29.9 pg (28.0-32.0); MEAN CORPUSCULAR VOLUME 87.9 fL (80.0-94.0); MONOCYTES % 10.5 % (2.0-8.0); NEUTROPHILS % 62.3 % (40.0-76.0); PLATELET 246 x1000/uL (130-400); RED BLOOD CELL COUNT 4.17 mill/uL (4.7-6.1); RED CELL DISTRIBUTION WIDTH 15.8 % (11.6-14.6)
[2020-12-08 11:05] LABS: CHLORIDE 109 mEq/L (98-107)
[2020-12-08 11:09] LABS: ETHANOL BLOOD < 10 mg/dL
[2020-12-08] MEDS ORDERED: LEVE1000 MT (12:47)
[2020-12-08 12:50] VITALS: BP 115/59
== END 2020-12-08 14:23 | disposition home or self-care (01) ==
LOC: ER 08:58
DX: G40.909 Epilepsy, unspecified, not intractable, without status epilepticus (principal); F10.21 Alcohol dependence, in remission; Z87.891 Personal history of nicotine dependence; Z88.8 Allergy status to other drugs, medicaments and biological substances
CPT/HCPCS: 36415; 71045; 80053; 80320; 85025; 93005; 99285; G0480